=== PATIENT | female | born 1945 | race Caucasian/White ===

== ENCOUNTER 2017-03-31 14:28 | Emergency (ER) | payer MEDICARE, OTHER ==
[~2017-03-31] VITALS: Ht 162.6 cm; Wt 107.0 kg
[~2017-03-31 14:28] MED LIST: AMLODIPINE BESY10 MG PO; FUROSEMIDE40 MG PO; HUMALOG 75100 UNITS/ IV; HUMALOG100 UNIT/4 SQ; LANTUS100 UNIT/2 SQ; LANTUS100 UNITS/ SC; LISINOPRIL-HCT1 EAC4 PO; PLAVIX75 MG PO; Z.0.ANTIVERT25 MG PO; Z.0.GABAPENTIN100 MG PO; Z.0.GABAPENTIN600 MG PO; Z.0.LOPRESSOR25 MG PO; Z.0.PANTOPRAZOLE SO4 PO; Z.0.PRINIVIL20 MG PO; Z.0.SYNTHROID175 MCG PO; Z.0.SYNTHROID200 MCG PO; Z.0.ULTRAM50 MG PO; Z.0.ZOCOR20 MG PO; Z.0.ZOLOFT50 MG PO
--- NOTE | 2017-03-31 15:54 | Diagnostic Imaging Report ---
Pelvis 1 view HISTORY: Pain. COMPARISON: None available. FINDINGS: Bones: No acute displaced fracture. No expansile lytic or sclerotic lesion. Joints: The joint spaces are well-maintained. No dislocation. Degenerative changes of the bilateral hips and lumbar spine. Soft tissues: The soft tissues appear unremarkable. Phleboliths are present. IMPRESSION: No acute radiographic abnormality. Signed by: Dr. Robert Del Angel M.D. on 03/31/2017 3:47 PM
[2017-03-31] MEDS ORDERED: HYDROCODONE/APAP 5MG-325MG TAB PO ONE ×2 (16:00→21:30)
[2017-03-31] MEDS ORDERED: MORPHINE SULFATE 2 MG/ML SYR IV ONE ×2 (17:30→19:30)
[2017-03-31 17:46] LABS: BILIRUBIN,URINE NEGATIVE (NEGATIVE); COLOR,URINE YELLOW (YELLOW); KETONES,URINE NEGATIVE (NEGATIVE); LEUKOCYTE ESTERASE ,URINE NEGATIVE (NEGATIVE); NITRITE,URINE NEGATIVE (NEGATIVE); PROTEIN,URINE DIPSTICK NEGATIVE (NEGATIVE); URINE UROBILINOGEN 0.2 mg/dL (0.2 - 1)
[2017-03-31 17:48] LABS: CLARITY,URINE SL CLOUDY (CLEAR)
[2017-03-31 17:58] LABS: BASOPHILS # (AUTO) 0.1 (0.0-0.1); BASOPHILS % 0.7 % (0.0-1.0); EOSINOPHILS # (AUTO) 0.1 (0.0-0.4); EOSINOPHILS % 1.4 % (0.0-6.0); HEMATOCRIT 33.4 % (34.2-44.1); HEMOGLOBIN 10.9 g/dL (12.0-16.0); LYMPHOCYTES # (AUTO) 1.2 (1.0-3.2); LYMPHOCYTES % 13.8 % (18.0-39.1); MEAN CORPUSCULAR HEMOGLOBIN 30.1 pg (28-32); MEAN CORPUSCULAR HGB CONC 32.6 g/dL (31-35); MEAN CORPUSCULAR VOLUME 92.3 fL (81-99); MONOCYTES # (AUTO) 0.5 (0.2-0.8); MONOCYTES % 5.5 % (4.4-11.3); NEUTROPHILS # (AUTO) 6.8 (2.1-6.9); NEUTROPHILS % 78.1 % (38.7-80.0); PLATELET COUNT 203 x10e3/uL (140-360); RED BLOOD COUNT 3.62 x10e6/uL (3.6-5.1); RED CELL DISTRIBUTION WIDTH 12.9 % (11.7-14.4)
[2017-03-31 18:00] LABS: BACTERIA,URINE FEW /HPF; EPITHELIAL CELLS,URINE MODERATE /LPF
[2017-03-31 18:13] LABS: INR 1.04; PARTIAL THROMBOPLASTIN TIME 26.9 seconds (23.8-35.5); PROTHROMBIN TIME 12.8 seconds (11.9-14.5)
[2017-03-31 18:24] LABS: ANION GAP 14.2 mmol/L (8-16); BLOOD UREA NITROGEN 16 mg/dL (7-26); BUN/CREATININE RATIO 20 (6-25); CALCIUM 9.3 mg/dL (8.4-10.2); CARBON DIOXIDE 27 mmol/L (22-29); CHLORIDE 98 mmol/L (98-107); CREATININE, SERUM 0.82 mg/dL (0.57-1.11); EST GLOMERULAR FILTRATION RATE > 60 ML/MIN (60-); GLUCOSE 354 mg/dL (74-118); POTASSIUM 4.2 mmol/L (3.5-5.1); SODIUM 135 mmol/L (136-145)
[2017-03-31] MEDS ORDERED: AMITRIPTYLINE H25 MG PO (19:06)
[2017-03-31] MEDS ORDERED: MONTELUKAST SOD10 MG PO (19:07)
--- NOTE | 2017-03-31 20:41 | Diagnostic Imaging Report ---
MRI of the pelvis without contrast. MRI of the right hip without contrast. History: Hip pain. Back pain. Pelvic pain. Fall. Fracture. Technique: Multiplanar multisequence MRI of the pelvis without contrast. Multiplanar multisequence MRI of the right hip without contrast. Comparison: Radiographs 03/31/2017 Findings: Pelvis MRI: There is no acute fracture, subluxation or avascular necrosis about the pelvis. Scattered degenerative changes are seen about the pelvis and lower lumbar spine. The urinary bladder and remainder of the visualized pelvic structures are unremarkable. No free pelvic fluid or pelvic lymphadenopathy is seen. There is mild diffuse muscle atrophy. No ligamentous or tendon tear is seen. There is a small hemangioma in the L5 vertebral body. Hip mri: There is no acute fracture, subluxation or avascular necrosis about the hip. Scattered degenerative changes are seen about the hip with thinning of the articular cartilage at the superior lateral acetabulum and adjacent femoral head. There is no underlying bone marrow edema. There is degeneration and fraying of the labrum. There is a physiologic amount of fluid in hip joint. The remainder the visualized ligaments and tendons about the hip are intact. There is no evidence to suggest greater trochanteric bursitis. There is mild diffuse muscle atrophy. There is mild insertional hamstring tendinosis. The visualized neurovascular bundles are intact. Impression: No acute fracture, subluxation or avascular necrosis about the pelvis. No acute fracture, subluxation or avascular sclerosis about the right hip. Preliminary report provided by Dr. Cedeño at the time of the exam is listed below. EXAM: MRI HIP RIGHT WO \T\ MRI PELVIS WO INDICATION: Fracture status post fall, pain out of portion after negative x-rays COMPARISON: Pelvic x-ray and bilateral hips on 03/31/2017 and 12/30/2013 IMPRESSION: 1. No evidence of acute osseous abnormalities noted on MRI. 2. L5 vertebral body hemangioma. 3. Degenerative changes of the spine at L5-S1 level Signed by: Dr. Russell Sanchez M.D. on 04/01/2017 7:33 AM
[2017-03-31] MEDS ORDERED: TYLENOL WITH C1 EACH PO (21:28)
[2017-03-31 21:44] VITALS: BP 177/66
== END 2017-03-31 21:55 | disposition home or self-care (01) ==
LOC: ER 14:28
DX: S70.01XA Contusion of right hip, initial encounter (principal); W01.0XXA Fall on same level from slipping, tripping and stumbling without subsequent striking against object, initial encounter; Y92.008 Other place in unspecified non-institutional (private) residence as the place of occurrence of the external cause; I10 Essential (primary) hypertension; E11.9 Type 2 diabetes mellitus without complications; J44.9 Chronic obstructive pulmonary disease, unspecified; E07.9 Disorder of thyroid, unspecified
CPT/HCPCS: 36415; 72170; 72195; 73721; 80048; 81001; 85025; 85610; 85730; 87086; 99284; J2270

== ENCOUNTER 2018-01-09 17:39 | Inpatient (IN) | payer MEDICARE, OTHER ==
[~2018-01-09] VITALS: Ht 162.6 cm; Wt 103.0 kg
[~2018-01-09 17:39] MED LIST changes: +AMITRIPTYLINE H25 MG PO; +MONTELUKAST SOD10 MG PO; +TYLENOL WITH C1 EACH PO
--- OUTSIDE RECORDS SUMMARY | 2018-01-09 17:43 | XMS REPORT | CCD ---
Author Author Auto Generated Organization [facility] Address Unknown Phone Unavailable Care Team Providers Care Railcar Foreman Name Role Phone Nighat Jo V CP Allergies, Adverse Reactions, Alerts Substance Reaction Status codeine Active Results CHEMISTRY Most recent to oldest [Reference Range]: 1 Sodium Lvl [135-145 mEq/L] 139 mEq/L (03/25/2012 14:58:00) Potassium Lvl [3.5-5.1 mEq/L] 4.1 mEq/L (03/25/2012 14:58:00) Chloride Lvl [95-109 mEq/L] 101 mEq/L (03/25/2012 14:58:00) CO2 [24-32 mEq/L] 32 mEq/L (03/25/2012 14:58:00) AGAP [10.0-20.0 mEq/L] 10.1 mEq/L (03/25/2012 14:58:00) Creatinine Lvl [0.5-1.4 mg/dL] 0.9 mg/dL (03/25/2012 14:58:00) eGFR 66 mL/min/1.73m2 1 *NA* (03/25/2012 14:58:00) BUN [7-22 mg/dL] 20 mg/dL (03/25/2012 14:58:00) B/C Ratio [6-25] 22 (03/25/2012 14:58:00) Glucose Lvl [70-99 mg/dL] 108 mg/dL 2 *HI* (03/25/2012 14:58:00) Total Protein [6.4-8.4 g/dL] 8.4 g/dL (03/25/2012 14:58:00) Albumin Lvl [3.5-5.0 g/dL] 4.4 g/dL (03/25/2012 14:58:00) Globulin [2.0-4.0 g/dL] 4.0 g/dL (03/25/201258:) A/G Ratio [0.7-1.6] 1.1 (03/25/2012) Calcium Lvl [8.5-10.5 mg/dL] 8.6 mg/dL (03/25/201258:00) ALT [0-65 unit/L] 61 unit/L (03/25/2012) AST [0-37 unit/L] 53 unit/L *HI* (03/25/2012) Alk Phos [39-136 unit/L] 70 unit/L (03/25/2012) Bili Total [0.2-1.3 mg/dL] 0.4 mg/dL (03/25/2012) CHD Risk [3.90-5.80] 3.62 *LOW* (03/25/2012) Chol [120-200 mg/dL] 217 mg/dL *HI* (03/25/2012) Trig [0-200 mg/dL] 232 mg/dL *HI* (03/25/2012) HDL [>=35 mg/dL] 60 mg/dL (03/25/2012) LDL [0-129 mg/dL] 111 mg/dL (03/25/2012:) Hgb A1C 7.7 % 3 *NA* (03/25/2012) T4 [4.7-13.3 ug/dl] <0.5 ug/dl *LOW* (03/25/2012) T4 Free [0.76-1.46 ng/dL] 0.17 ng/dL *LOW* (03/25/2012) TSH [0.360-3.740 uIU/mL] 97.700 uIU/mL *HI* (03/25/2012) T3 Total [0.60-1.81 ng/mL] 0.18 ng/mL *LOW* (03/25/2012) T3 Free [2.18-3.98 pg/mL] 0.86 pg/mL *LOW* (03/25/2012 14:58:00) 1Result Comment: The eGFR is calculated using the CKD-EPI formula. In most young, healthy individuals the eGFR will be >90 mL/min/1.73m2. The eGFR declines with age. An eGFR of 60-89 may be normal in some populations, particularly the elderly, for whom the CKD-EPI formula has not been extensively validated. Use of the eGFR is not recommended in the following populations: Individuals with unstable creatinine concentrations, including patients and those with serious co-morbid conditions. Patients with extremes in muscle mass or diet. The data above are obtained from the National Kidney Disease Education Program ( NKDEP) which additionally recommends that when the eGFR is used in patients with extremes of body mass index for purposes of drug dosing, the eGFR should be mul tiplied by the estimated BMI. 2Interpretive Data: Adult reference range values reflect the clinical guidelines of the [place] [employer]. 3Interpretive Data: HbA1C% eAG(mg/dL) Interpretation 6.0 126 Very good control 6.5 140 Very good control 7.0 154 Good Control 7.5 169 Good Control 8.0 183 Marginal Control, take action to lower 8.5 197 Marginal Control, take action to lower 9.0 212 Poor Control, take action to lower 9.5 226 Poor Control, take action to lower 10.0 240 Poor Control, take action to lower HEMATOLOGY Most recent to oldest [Reference Range]: 1 WBC [3.7-10.4 K/CMM] 7.4 K/CMM (03/25/2012 14:58:00) RBC [4.20-5.40 M/CMM] 3.67 M/CMM *LOW* (03/25/2012 14:58:00) Hgb [12.0-16.0 g/dL] 11.5 g/dL *LOW* (03/25/2012:58:00) Hct [36.0-48.0 %] 35.5 % *LOW* (03/25/2012 14:58:00) MCV [81.0-99.0 fL] 96.8 fL (03/25/2012 14:58:00) MCH [27.0-31.0 pg] 31.4 pg *HI* (03/25/2012:58:00) MCHC [32.0-36.0 g/dL] 32.5 g/dL (03/25/2012:58:00) RDW [11.5-14.5 %] 15.9 % *HI* (03/25/2012:58:00) Platelet [133-450 K/CMM] 232 K/CMM (03/25/2012:58:00) MPV [7.4-10.4 fL] 7.1 fL *LOW* (03/25/2012:58:00) Segs [45.0-75.0 %] 63.1 % (03/25/2012:58:00) Lymphocytes [20.0-40.0 %] 28.4 % (03/25/2012:58:00) Monocytes [2.0-12.0 %] 4.6 % (03/25/2012:58:00) Eosinophils [0.0-4.0 %] 3.2 % (03/25/2012:58:00) Basophils [0.0-1.0 %] 0.7 % (03/25/2012:58:00) Segs-Bands # [1.5-8.1 K/CMM] 4.7 K/CMM (03/25/2012:58:00) Lymphocytes # [1.0-5.5 K/CMM] 2.1 K/CMM (03/25/2012:58:00) Monocytes # [0.0-0.8 K/CMM] 0.3 K/CMM (03/25/2012 14:58:00) Eosinophils # [0.0-0.5 K/CMM] 0.2 K/CMM (03/25/2012 14:58:00) Basophils # [0.0-0.2 K/CMM] 0.1 K/CMM (03/25/2012 14:58:00)
--- OUTSIDE RECORDS SUMMARY | 2018-01-09 17:43 | XMS REPORT | CCD ---
Author Author Auto Generated Organization [facility] Address Unknown Phone Unavailable Care Team Providers Care Behavioral Scientist Name Role Phone Nighat Jo V RP Allergies, Adverse Reactions, Alerts Substance Reaction Status codeine Active Vital Signs Most recent to oldest [Reference Range]: 1 Height 162.56 cm (08/11/2012 10:36:00) Weight 105.455 kg (08/11/2012 10:36:00)
--- OUTSIDE RECORDS SUMMARY | 2018-01-09 17:43 | XMS REPORT | Continuity of Care Document ---
Author Author [facility] Interface Address Unknown Phone Unavailable Problems Problem Status Onset Date Classification Date Reported Comments Source I25.710 Active 01/09/2016 [facility] UNK Active 01/09/2016 [facility] CHEST PAIN Active 10/15/2013 [facility] SHORTNESS OF BREATH Active 10/15/2013 [facility] STABLE ANGINA Active 08/11/2012 [facility] Thyroid Resolved Problem 03/04/2015 [facility] Cholesterol Resolved Problem 04/15/2016 [facility] [place] Diabetes Resolved Problem 04/15/2016 [facility] [place] HTN (<span [id number]">Confirmed</span>) Resolved Problem 04/15/2016 [facility] [place] Myasthenia gravis Resolved Problem 04/15/2016 [facility] [place] Pneumonia<sup>1</sup> Resolved Problem 04/15/2016 staph [facility] [place] 780.79 Active [facility] MALAISE AND FATIGUE NEC Active [facility] CRNRY ATHRSCL NATVE VSSL Active [facility] 786.50/ 780.79, 2724., 414.01 Active [facility] HYPERLIPIDEMIA NEC/NOS Active [facility] CHEST PAIN NOS Active [facility] COUGH Active [facility] COUGH Active [facility] ATHSCL AUTOLOGOUS VEIN CABG W UNSTABLE A Active [facility] Medications Medication Details Route Status Patient Instructions Ordering Provider Order Date Source Nitroglycerin 0.4 mg, 1 tab, Route: SL, Drug form: TAB, Q5Min, Dosing Weight 100.909, kg, PRN Chest Pain, Start date: 01/16/16 9:15:00 [employer], Duration: 3 doses or times, Stop date: Limited # of timesNotes: (Same as: Nitroquick, Nitrostat) "Do Not Crush" Sublingual tablet Inactive 01/16/2016 [facility] Sodium Chloride 0.154 MEQ/ML Injectable Solution 200 mL, Rate: 50 ml/hr, Infuse over: 4 hr, Route: IV, Dosing Weight 100.909 kg, Total Volume: 200, Start date: 01/16/16 9:15:00 [employer], Duration: 24 hr, Stop date: 01/17/16 9:14:00 [employer] Inactive 01/16/2016 [facility] metoprolol 50 mg oral tablet, extended release 50 mg=1 tab, PO, BID, # 60 tab, 0 Refill(s), other Active 01/16/2016 [facility] losartan 100 mg oral tablet 100 mg=1 tab, PO, Daily, # 30 tab, 0 Refill(s), other Active 01/16/2016 [facility] Novolin R See Instructions, 35 units SUB-Q QID-Before Meals, 0 Refill(s) Active 01/16/2016 [facility] multivitamin with iron 65 mg=, PO, Daily, 0 Refill(s) Active 01/16/2016 [facility] Vitamin B6 200 mg, 2 tab, Route: PO, Drug form: TAB, Daily, Dosing Weight 111.818, kg, Start date: 10/16/13 17:00:00, Duration: 30 day, Stop date: 11/14/13 17:00:00Notes: (Same as: Vitamin B6) Inactive 10/16/2013 [facility] Levaquin 500 mg, 100 mL, Route: IVPB, Drug form: INJ, [id number], Dosing Weight 111.818, kg, Start date: 10/16/13 14:00:00, Duration: 30 day, Stop date: 11/14/13 14:00:00Notes: (Same as:Levaquin) Inactive 10/16/2013 [facility] Sertraline 50 mg, 1 tab, Route: PO, Drug form: TAB, Daily, Dosing Weight 111.818, kg, Start date: 10/16/13 9:00:00, Duration: 30 day, Stop date: 11/14/13 9:00:00Notes: (Same as: Zoloft) Inactive 10/16/2013 [facility] metoprolol extended release 25 mg, 1 tab, Route: PO, Drug form: ERTAB, Daily, Dosing Weight 111.818, kg, Start date: 10/16/13 9:00:00, Duration: 30 day, Stop date: 11/14/13 9:00:00Notes: (Same as: Toprol XL) Do Not Crush Inactive 10/16/2013 [facility] Furosemide 40 mg, 1 tab, Route: PO, Drug form: TAB, Daily, Dosing Weight 111.818, kg, Start date: 10/16/13 9:00:00, Duration: 30 day, Stop date: 11/14/13 9:00:00Notes: (Same as: Lasix) May cause GI upset. Give with food or milk. Inactive 10/16/2013 [facility] clopidogrel 75 mg, 1 tab, Route: PO, Drug form: TAB, Daily, Dosing Weight 111.818, kg, Start date: 10/16/13 9:00:00, Duration: 30 day, Stop date: 11/14/13 9:00:00Notes: (Same As: Plavix) Inactive 10/16/2013 [facility] Aspirin / Calcium Carbonate 81 mg, 1 tab, Route: PO, Drug form: CHEWTAB, Daily, Dosing Weight 111.818, kg, Start date: 10/16/13 9:00:00, Duration: 30 day, Stop date: 11/14/13 9:00:00Notes: Take with food. Inactive 10/16/2013 [facility] NovoLOG FlexPen 10 unit, 0.1 mL, Route: SUB-Q, Drug form: SOLN, TID-Before Meals, Start date: 10/16/13 7:50:00, Duration: 30 day, Stop date: 11/14/13 16:50:00Notes: Roll in palms of hands gently; Do not shake vigor ously. (Same as: NovoLOG) "single patient use only" Stable for 28 days at room temperature. Expires in days from Date Inactive 10/16/2013 [facility] Humalog 10 unit, Route: SUB-Q, Drug form: NEEDLE, TID-Before Meals, Dosing Weight 111.818, kg, Start date: 10/16/13 7:30:00, Duration: 30 day, Stop date: 11/14/13 16:30:00 No Longer Active 10/16/2013 [facility] Thyroxine 100 microgram, 1 tab, Route: PO, Drug form: TAB, Q6AM, Dosing Weight 111.818, kg, Start date: 10/16/13 6:00:00, Duration: 30 day, Stop date: 11/14/13 6:00:00Notes: Take 1 hour before or 2 hours after meal; Enteral feeds may interefere with the absorption of this medication. (Same as:Levothroid, Synthroid) Inactive 10/16/2013 [facility] gabapentin 600 mg, 2 cap, Route: PO, Drug form: CAP, Q8H, Dosing Weight 111.818, kg, Start date: 10/16/13 0:00:00, Duration: 30 day, Stop date: 11/14/13 16:00:00Notes: (Same as: Neurontin) Inactive 10/16/2013 [facility] Saline Flush 0.9% 5 ml, Route: IVP, Drug Form: INJ, Dosing Weight 111.818, kg, Q12H, Start date: 10/15/13 21:00:00, Duration: 30 day, Stop date: 11/14/13 9:00:00Notes: (Same as: BD Posiflush) No Longer Active 10/16/2013 [facility] Levemir FlexPen 50 unit, 0.5 mL, Route: SUB-Q, Drug form: INJ, Bedtime, Start date: 10/15/13 21:00:00, Duration: 30 day, Stop date: 11/13/13 21:00:00Notes: Same as Levemir "single patient use only" No Longer Active 10/16/2013 [facility] Lantus 50 unit, Route: SUB-Q, Drug form: NEEDLE, Bedtime, Dosing Weight 111.818, kg, Start date: 10/15/13 21:00:00, Duration: 30 day, Stop date: 11/13/13 21:00:00 Inactive 10/16/2013 [facility] atorvastatin 10 mg, 1 tab, Route: PO, Drug form: TAB, Bedtime, Dosing Weight 111.818, kg, Start date: 10/15/13 21:00:00, Duration: 30 day, Stop date: 11/13/13 21:00:00Notes: (Same As: Lipitor) No Longer Active 10/16/2013 [facility] Restoril 7.5 mg, 1 cap, Route: PO, Drug form: CAP, Bedtime, PRN Sleep, Start date: 10/15/13 18:05:00, Duration: 30 day, Stop date: 11/14/13 18:04:00Notes: (Same As: Restoril) No Longer Active 10/15/2013 [facility] Nitroglycerin 0.02 MG/MG Topical Ointment 0.5 inch, Route: TOP, Drug Form: OINT, Dosing Weight 111.818, kg, TID, Start date: 10/15/13 18:00:00, Duration: 30 day, Stop date: 11/14/13 12:00:00Notes: 1 gram is approximately 1 inch of nitroglycerin ointment (20 mg NTG per gram) (Same as:Nitro-Bid) No Longer Active 10/15/2013 [facility] Enoxaparin 40 mg, 0.4 mL, Route: SUB-Q, Drug form: INJ, [id number], Dosing Weight 111.818, kg, Start date: 10/15/13 18:00:00, Duration: 30 day, Stop date: 11/13/13 18:00:00Notes: (Same as: Lovenox) No Longer Active 10/15/2013 [facility] Tylenol 650 mg, 2 tab, Route: PO, Drug form: TAB, Q4H, Dosing Weight 111.818, kg, PRN Pain, Start date: 10/15/13 17:57:00, Duration: 30 day, Stop date: 11/14/13 17:56:00Notes: Do not exceed 4 gm/day. (Same as: Tylenol) No Longer Active 10/15/2013 [facility] Ambien 5 mg, Route: PO, Bedtime, Dosing Weight 111.818, kg, PRN Insomnia, Start date: 10/15/13 17:57:00, Duration: 30 day, Stop date: 11/14/13 17:56:00 Inactive 10/15/2013 [facility] Aspirin / Calcium Carbonate 81 mg, PO, Daily, 0 Refill(s) Active 10/15/2013 [facility] metoprolol tartrate 25 mg, PO, Daily, 0 Refill(s) Active 10/15/2013 [facility] Thyroxine 100 microgram, PO, Daily, 0 Refill(s) Active 10/15/2013 [facility] Vitamin B6 200 mg, PO, Daily, 0 Refill(s) Active 10/15/2013 [facility] Sertraline 50 mg, PO, Daily, 0 Refill(s) Active 10/15/2013 [facility] atorvastatin 10 mg, PO, Bedtime, 0 Refill(s) Active 10/15/2013 [facility] clopidogrel 75 mg, PO, Daily, 0 Refill(s) Active 10/15/2013 [facility] Lantus 50 unit, SUB-Q, Bedtime, 0 Refill(s) Active 10/15/2013 [facility] Humalog 10 unit, SUB-Q, TID-Before Meals, 0 Refill(s) Active 10/15/2013 [facility] gabapentin 600 mg, PO, TID, 0 Refill(s) Active 10/15/2013 [facility] Furosemide 40 mg, PO, Daily, 0 Refill(s) Active 10/15/2013 [facility] nitroglycerin 0.4 mg sublingual tablet 0.4 mg, 1 tab, Route: SL, Drug form: TAB, Q5Min, PRN Chest Pain, Start date: 10/15/13 12:46:00, Duration: 30 day, Stop date: 11/14/13 12:45:00Notes: (Same as:Nitroquick, Nitrostat) "Do Not Crush" Sublingual tablet No Longer Active 10/15/2013 [facility] atropine 0.5 mg, 5 mL, Route: IVP, Drug form: INJ, PRN, PRN Bradycardia, Start date: 10/15/13 12:46:00, Duration: 30 day, Stop date: 11/14/13 12:45:00 No Longer Active 10/15/2013 [facility] Saline Flush 0.9% 5 ml, Route: IVP, Drug Form: INJ, Dosing Weight 111.818, kg, PRN, PRN Line Flush, Start date: 10/15/13 12:41:00, Duration: 30 day, Stop date: 11/14/13 12:40:00Notes: (Same as: BD Posiflush) No Longer Active 10/15/2013 [facility] Nitroglycerin 0.4 mg, Route: SL, Drug form: TAB, Q5Min, Dosing Weight 111.818, kg, PRN Chest Pain, Start date: 10/15/13 12:41:00, Duration: 3 doses or times, Stop date: Limited # of times Inactive 10/15/2013 [facility] aspirin 325 mg tablet 325 mg, 1 tab, Route: PO, Drug form: TAB, ONCE, Dosing Weight 111.818, kg, Start date: 10/15/13 12:41:00, Stop date: 10/15/13 12:41:00Notes: Take with food. Inactive 10/15/2013 [facility] Dextrose 50% Syringe 25 gm, 50 mL, Route: IVP, Drug Form: INJ, Dosing Weight 111.818, kg, PRN, PRN Blood Glucose Results, Start date: 10/15/13 12:41:00, Duration: 30 day, Stop date: 11/14/13 12:40:00 No Longer Active 10/15/2013 [facility] Glucagon 1 mg, Route: IM, Drug form: PDR/INJ, PRN, Dosing Weight 111.818, kg, PRN Blood Glucose Results, Start date: 10/15/13 12:41:00, Duration: 30 day, Stop date: 11/14/13 12:40:00 No Longer Active 10/15/2013 [facility] Insulin, Aspart, Human 5 unit, 0.05 mL, Route: SUB-Q, Drug form: SOLN, TID-Before Meals, Dosing Weight 111.818, kg, PRN Blood Glucose Results, Start date: 10/15/13 12:41:00, Duration: 30 day, Stop date: 11/14/13 12:40:00Notes: Roll in palms of hands gently; Do not shake vigorously. (Same as: NovoLOG) "single patient use only" Stable for 28 days at room temperature. Expires in days from Date No Longer Active 10/15/2013 [facility] Metoprolol 5 mg, 5 mL, Route: IVP, Drug form: INJ, ONCE, Dosing Weight 111.818, kg, Priority: STAT, Start date: 10/15/13 9:00:00, Stop date: 10/15/13 9:00:00Notes: (Same as: Lopressor) Push over 2 minutes Inactive 10/15/2013 [facility] Furosemide 20 mg, 2 mL, Route: IVP, Drug form: INJ, ONCE, Dosing Weight 111.818, kg, Priority: STAT, Start date: 10/15/13 8:58:00, Stop date: 10/15/13 8:58:00Notes: (Same as: Lasix) Inactive 10/15/2013 [facility] Nitroglycerin 0.02 MG/MG Topical Ointment 1 inch, Route: TOP, Drug Form: OINT, Dosing Weight 111.818, kg, ONCE, STAT, Start date: 10/15/13 8:58:00, Stop date: 10/15/13 8:58:00Notes: 1 gram is approximately 1 inch of nitroglycerin ointment (20 mg NTG per gram) (Same as:Nitro-Bid) Inactive 10/15/2013 [facility] Aspirin / Calcium Carbonate 324 mg, 4 tab, Route: PO, Drug form: CHEWTAB, ONCE, Dosing Weight 111.818, kg, Priority: STAT, Start date: 10/15/13 8:58:00, Stop date: 10/15/13 8:58:00Notes: Take with food. Inactive 10/15/2013 [facility] Saline Flush 0.9% 10 mL, Route: IVP, Drug Form: INJ, Dosing Weight 111.818, kg, PRN, PRN Line Flush, Start date: 10/15/13 8:58:00, Duration: 30 day, Stop date: 11/14/13 8:57:00Notes: Same as: BD Posiflush Sterile Inactive 10/15/2013 [facility] Allergies, Adverse Reactions, Alerts Substance Category Reaction Severity Reaction type Status Date Reported Comments Source codeine Assertion Drug allergy Active [facility] Immunizations Immunization Date Given Site Status Last Updated Comments Source Results Order Name Results Value Reference Range Date Interpretation Comments Source Chest 2 views DX Chest 2 views DX EXAM: Chest 2 views DX HISTORY: cough r05 COMPARISON: 03/01/2015 Cardiomegaly with median sternotomy and coronary artery bypass graft changes are again noted. The lungs are clear. There is no effusion or pneumothorax. Mild discogenic degenerative changes are noted. IMPRESSION: No acute abnormality. 04/12/2016 - - Read by: Klaudia Agarwal MD Dictated Date/time: 04/12/16 12:46 Electronically Signed by: Klaudia Agarwal MD 04/12/16 12:47 FINAL REPORT AUSTEN [facility] Sinus paranasal series DX Sinus paranasal series DX EXAM: Sinus paranasal series DX HISTORY: J31.0 Chronic rhinitis COMPARISON: None IMPRESSION: No air-fluid level or radiographically evident significant mucosal thickening of the paranasal sinuses is seen. The nasal septum is mildly deviated toward the right. 04/12/2016 - - Read by: Klaudia Agarwal MD Dictated Date/time: 04/12/16 12:46 Electronically Signed by: Klaudia Agarwal MD 04/12/16 12:46 FINAL REPORT CARA [facility] Chest 2 views DX Chest 2 views DX PA and lateral: Median sternotomy wires are noted. The aorta is tortuous. The cardiomediastinal silhouette, pulmonary vasculature and mary are otherwise within normal limits. The lungs and pleural spaces are clear. There are no significant osseous abnormalities. There is no significant change compared to 10/15/2013. IMPRESSION: No acute radiographic abnormality in the chest. SL:13 03/01/2015 - - Read by: Donavan Brandon MD Dictated Date/time: 03/01/15 10:59 Electronically Signed by: Donavan Brandon MD 03/01/15 11:00 FINAL REPORT [facility] CARDIAC ENZYMES Troponin-I null 0.00 - 0.40 10/16/2013 [facility] Cardiac SPECT multi studies IA Cardiac SPECT multi studies IA Test Location is [facility] [place] The patient underwent Lexiscan Cardiolite stress testing according to the rest/stress protocol. The patient was then injected with 33 mCi of Cardiolite at stress and 11 mCi of Cardiolite at rest. Transverse, coronal, and sagittal images were obtained. Review of stress and rest images revealed normal myocardial perfusion. Ejection fraction by SPECT analysis was 70%. The baseline ECG showed NSR. No significant ECG or hemodynamic changes were observed. In summary, this represents a normal myocardial perfusion study with normal LV function. 10/16/2013 - - Read by: Axel Gilbert MD Dictated Date/time: 10/16/13 17:10 Electronically Signed by: Axel Gilbert MD 10/16/13 17:10 FINAL REPORT [facility] CARDIAC ENZYMES BNP 103 pg/mL <=100 pg/mL 10/16/2013 5Interpretive Data: Elevated results are in line with increasing severity of congestive heart failure. Minor elevations between 100 and 300 may be seen with Myocardial Ischemia, Sodium retaining drugs, and compensated/treated heart failure. [facility] CARDIAC ENZYMES Troponin-I null 0.00 - 0.40 10/16/2013 [facility] CARDIAC ENZYMES Total CK 42 unit/L 12 - 191 10/16/2013 [facility] CHEM PANEL eGFR 75 mL/min/1.73m2 10/16/2013 1Result Comment: The eGFR is calculated using [...] from the National Kidney Disease Education Program (NKDEP) which additionally recommends that when the eGFR is used in patients with extremes of body mass index for purposes of drug dosing, the eGFR should be multiplied by the estimated BMI. [facility] CHEM PANEL CO2 37 meq/L 24 - 32 10/16/2013 [facility] CHEM PANEL Chloride Lvl 98 meq/L 95 - 109 10/16/2013 [facility] CHEM PANEL Glucose Lvl 202 mg/dL 70 - 99 10/16/2013 3Interpretive Data: Adult reference range values reflect the clinical guidelines of the [place] [employer]. [facility] CHEM PANEL BUN 17 mg/dL 7 - 22 10/16/2013 [facility] CHEM PANEL Calcium Lvl 8.8 mg/dL 8.5 - 10.5 10/16/2013 [facility] CHEM PANEL Creatinine Lvl 0.8 mg/dL 0.5 - 1.4 10/16/2013 [facility] CHEM PANEL Sodium Lvl 139 meq/L 135 - 145 10/16/2013 [facility] CHEM PANEL Potassium Lvl 4.1 meq/L 3.5 - 5.1 10/16/2013 [facility] CHEM PANEL AGAP 8.1 meq/L 10.0 - 20.0 10/16/2013 [facility] HEMATOLOGY Basophils # 0.1 K/CMM 0.0 - 0.2 10/16/2013 [facility] HEMATOLOGY Segs 72.9 % 45.0 - 75.0 10/16/2013 [facility] HEMATOLOGY Lymphocytes 17.9 % 20.0 - 40.0 10/16/2013 [facility] HEMATOLOGY Monocytes 6.5 % 2.0 - 12.0 10/16/2013 [facility] HEMATOLOGY Eosinophils 1.9 % 0.0 - 4.0 10/16/2013 [facility] HEMATOLOGY Basophils 0.8 % 0.0 - 1.0 10/16/2013 [facility] HEMATOLOGY Segs-Bands # 6.0 K/CMM 1.5 - 8.1 10/16/2013 [facility] HEMATOLOGY Lymphocytes # 1.5 K/CMM 1.0 - 5.5 10/16/2013 [facility] HEMATOLOGY Monocytes # 0.5 K/CMM 0.0 - 0.8 10/16/2013 [facility] HEMATOLOGY Eosinophils # 0.2 K/CMM 0.0 - 0.5 10/16/2013 [facility] HEMATOLOGY MCHC 33.5 g/dL 32.0 - 36.0 10/16/2013 [facility] RDW 15.0 % 11.5 - 14.5 10/16/2013 [facility] HEMATOLOGY Platelet 179 K/CMM 133 - 450 10/16/2013 [facility] HEMATOLOGY MPV 7.2 fL 7.4 - 10.4 10/16/2013 [facility] HEMATOLOGY Hgb 10.0 g/dL 12.0 - 16.0 10/16/2013 [facility] HEMATOLOGY Hct 30.0 % 36.0 - 48.0 10/16/2013 [facility] HEMATOLOGY MCV 94.0 fL 80.0 - 98.0 10/16/2013 [facility] MCH 31.5 pg 27.0 - 31.0 10/16/2013 [facility] HEMATOLOGY RBC 3.19 M/CMM 4.20 - 5.40 10/16/2013 [facility] HEMATOLOGY WBC 8.2 K/CMM 3.7 - 10.4 10/16/2013 [facility] LIPIDS VLDL 23 10/16/2013 [facility] LIPIDS LDL (Calculated) 77 mg/dL <=99 mg/dL 10/16/2013 [facility] LIPIDS HDL 40 mg/dL >=61 mg/dL 10/16/2013 [facility] LIPIDS Chol 140 mg/dL <=199 mg/dL 10/16/2013 [facility] LIPIDS Trig 113 mg/dL <=149 mg/dL 10/16/2013 [facility] LIPIDS CHD Risk 3.50 3.90 - 5.80 10/16/2013 [facility] Ext Lower Venous Doppler Unilat US Ext Lower Venous Doppler Unilat US EXAM: Left lower extremity venous Doppler ultrasound and SPECTRAL analysis. CLINICAL INFORMATION: Pain. Leg pain. TECHNIQUE: Duplex and color Doppler evaluation of the deep venous system of left leg. FINDINGS: The left common femoral, femoral, popliteal and tibial veins demonstrate normal color-flow, compressibility and augmentation. The left greater saphenous vein is also patent. IMPRESSION: No sonographic evidence of deep venous thrombosis in the left leg. SL: 10/16/2013 - - Read by: Danilo Smith MD Dictated Date/time: 10/16/13 08:46 Electronically Signed by: Danilo Smith MD 10/16/13 08:46 FINAL REPORT [facility] CARDIAC ENZYMES Total CK 47 unit/L 12 - 191 10/15/2013 [facility] CARDIAC ENZYMES Troponin-I 0.02 ng/mL 0.00 - 0.40 10/15/2013 [facility] HEMATOLOGY PTT 30.9 s 22.9 - 35.8 10/15/2013 7Interpretive Data: Heparin Therapeutic Range: 57 - 92 Seconds [facility] CARDIAC ENZYMES CK MB Index 2.5 0.0 - 2.5 10/15/2013 [facility] CARDIAC ENZYMES BNP 170 pg/mL <=100 pg/mL 10/15/2013 6Interpretive Data: Elevated results are in line with increasing severity of congestive heart failure. Minor elevations between 100 and 300 may be seen with Myocardial Ischemia, Sodium retaining drugs, and compensated/treated heart failure. [facility] CARDIAC ENZYMES CK MB 1.5 ng/mL 0.5 - 3.6 10/15/2013 [facility] CARDIAC ENZYMES Total CK 59 unit/L 12 - 191 10/15/2013 [facility] CHEM PANEL eGFR 88 mL/min/1.73m2 10/15/2013 2Result Comment: The eGFR is calculated using the [...] from the National Kidney Disease Education Program (NKDEP) which additionally recommends that when the eGFR is used in patients with extremes of body mass index for purposes of drug dosing, the eGFR should be multiplied by the estimated BMI. [facility] CHEM PANEL B/C Ratio 16 6 - 25 10/15/2013 [facility] CHEM PANEL AGAP 9.0 meq/L 10.0 - 20.0 10/15/2013 [facility] CHEM PANEL Globulin 3.7 g/dL 2.0 - 4.0 10/15/2013 [facility] CHEM PANEL A/G Ratio 1.1 0.7 - 1.6 10/15/2013 [facility] CHEM PANEL AST 21 unit/L 0 - 37 10/15/2013 [facility] CHEM PANEL Bili Total 0.7 mg/dL 0.2 - 1.3 10/15/2013 [facility] CHEM PANEL Alk Phos 100 unit/L 39 - 136 10/15/2013 [facility] CHEM PANEL Sodium Lvl 134 meq/L 135 - 145 10/15/2013 [facility] CHEM PANEL Total Protein 7.6 g/dL 6.4 - 8.4 10/15/2013 [facility] CHEM PANEL Calcium Lvl 9.0 mg/dL 8.5 - 10.5 10/15/2013 [facility] CHEM PANEL CO2 31 meq/L 24 - 32 10/15/2013 [facility] CHEM PANEL Albumin Lvl 3.9 g/dL 3.5 - 5.0 10/15/2013 [facility] CHEM PANEL ALT 24 unit/L 0 - 65 10/15/2013 [facility] CHEM PANEL Chloride Lvl 98 meq/L 95 - 109 10/15/2013 [facility] CHEM PANEL BUN 11 mg/dL 7 - 22 10/15/2013 [facility] CHEM PANEL Creatinine Lvl 0.7 mg/dL 0.5 - 1.4 10/15/2013 [facility] CHEM PANEL Potassium Lvl 4.0 meq/L 3.5 - 5.1 10/15/2013 [facility] CHEM PANEL Glucose Lvl 195 mg/dL 70 - 99 10/15/2013 4Interpretive Data: Adult reference range values reflect the clinical guidelines of the [place] [employer]. [facility] HEMATOLOGY Monocytes # 0.6 K/CMM 0.0 - 0.8 10/15/2013 [facility] HEMATOLOGY Eosinophils # 0.1 K/CMM 0.0 - 0.5 10/15/2013 [facility] HEMATOLOGY Basophils # 0.1 K/CMM 0.0 - 0.2 10/15/2013 [facility] Lymphocytes # 1.2 K/CMM 1.0 - 5.5 10/15/2013 [facility] Eosinophils 1.1 % 0.0 - 4.0 10/15/2013 [facility] Basophils 1.2 % 0.0 - 1.0 10/15/2013 [facility] Segs-Bands # 8.9 K/CMM 1.5 - 8.1 10/15/2013 [facility] Monocytes 5.3 % 2.0 - 12.0 10/15/2013 [facility] Segs 81.4 % 45.0 - 75.0 10/15/2013 [facility] Lymphocytes 11.0 % 20.0 - 40.0 10/15/2013 [facility] WBC 10.9 K/CMM 3.7 - 10.4 10/15/2013 [facility] RBC 3.32 M/CMM 4.20 - 5.40 10/15/2013 [facility] Hct 31.4 % 36.0 - 48.0 10/15/2013 [facility] Hgb 10.8 g/dL 12.0 - 16.0 10/15/2013 [facility] MPV 7.1 fL 7.4 - 10.4 10/15/2013 [facility] MCV 94.5 fL 80.0 - 98.0 10/15/2013 [facility] MCH 32.6 pg 27.0 - 31.0 10/15/2013 [facility] MCHC 34.5 g/dL 32.0 - 36.0 10/15/2013 [facility] RDW 14.8 % 11.5 - 14.5 10/15/2013 [facility] Platelet 197 K/CMM 133 - 450 10/15/2013 [facility] Chest 1view Chest 1view EXAM: CHEST 1 VIEW DATE: Oct 15, 2013 09:10:13 AM INDICATION: Chest pain COMPARISON: Chest X ray 04/24/13 TECHNIQUE: AP chest radiograph. FINDINGS: Lungs are clear bilaterally without effusion. The cardiomediastinal contours are unchanged. Midline sternotomy wires are present. CABG ovidio are identified. IMPRESSION: No acute intrathoracic abnormality SL: 13 10/15/2013 - - Read by: Ilya Messina MD Dictated Date/time: 10/15/13 09:11 Electronically Signed by: Ilya Messina MD 10/15/13 09:20 FINAL REPORT [facility] CARDIAC ENZYMES Total CK 42 unit/L 12 - 191 04/24/2013 [facility] CHEM PANEL A/G Ratio 1.1 0.7 - 1.6 04/24/2013 [facility] CHEM PANEL B/C Ratio 20 6 - 25 04/24/2013 [facility] CHEM PANEL Globulin 3.8 g/dL 2.0 - 4.0 04/24/2013 [facility] CHEM PANEL AGAP 7.9 meq/L 10.0 - 20.0 04/24/2013 [facility] CHEM PANEL eGFR 89 mL/min/1.73m2 04/24/2013 1Result Comment: The eGFR is calculated using [...] from the National Kidney Disease Education Program (NKDEP) which additionally recommends that when the eGFR is used in patients with extremes of body mass index for purposes of drug dosing, the eGFR should be multiplied by the estimated BMI. [facility] CHEM PANEL Bili Total 0.7 mg/dL 0.2 - 1.3 04/24/2013 [facility] CHEM PANEL ASPARTATE TRANSAMINASE 13 unit/L 0 - 37 04/24/2013 [facility] CHEM PANEL ALANINE AMINOTRANSFERASE 15 unit/L 0 - 65 04/24/2013 [facility] CHEM PANEL Alk Phos 133 unit/L 39 - 136 04/24/2013 [facility] CHEM PANEL Total Protein 7.8 g/dL 6.4 - 8.4 04/24/2013 [facility] CHEM PANEL Albumin Lvl 4.0 g/dL 3.5 - 5.0 04/24/2013 [facility] CHEM PANEL Creatinine Lvl 0.7 mg/dL 0.5 - 1.4 04/24/2013 [facility] CHEM PANEL Glucose Lvl 145 mg/dL 70 - 99 04/24/2013 2Interpretive Data: Adult reference range values reflect the clinical guidelines of the [place] [employer]. [facility] CHEM PANEL Chloride Lvl 101 meq/L 95 - 109 04/24/2013 [facility] CHEM PANEL BUN 14 mg/dL 7 - 22 04/24/2013 [facility] CHEM PANEL CO2 35 meq/L 24 - 32 04/24/2013 [facility] CHEM PANEL Calcium Lvl 9.1 mg/dL 8.5 - 10.5 04/24/2013 [facility] CHEM PANEL Sodium Lvl 140 meq/L 135 - 145 04/24/2013 [facility] CHEM PANEL Potassium Lvl 3.9 meq/L 3.5 - 5.1 04/24/2013 [facility] HEMATOLOGY RDW 14.5 % 11.5 - 14.5 04/24/2013 [facility] MCHC 33.4 g/dL 32.0 - 36.0 04/24/2013 [facility] Platelet 253 K/CMM 133 - 450 04/24/2013 [facility] MPV 7.3 fL 7.4 - 10.4 04/24/2013 [facility] Hgb 11.0 g/dL 12.0 - 16.0 04/24/2013 [facility] RBC X 10x6 3.58 M/CMM 4.20 - 5.40 04/24/2013 [facility] WBC X 10x3 10.0 K/CMM 3.7 - 10.4 04/24/2013 [facility] MCV 91.9 fL 81.0 - 99.0 04/24/2013 [facility] Hct 32.9 % 36.0 - 48.0 04/24/2013 [facility] MCH 30.7 pg 27.0 - 31.0 04/24/2013 [facility] Lymphocytes 23.4 % 20.0 - 40.0 04/24/2013 [facility] Segs 70.0 % 45.0 - 75.0 04/24/2013 [facility] HEMATOLOGY Eosinophils # 0.2 K/CMM 0.0 - 0.5 04/24/2013 [facility] HEMATOLOGY Basophils # 0.0 K/CMM 0.0 - 0.2 04/24/2013 [facility] HEMATOLOGY Monocytes # 0.4 K/CMM 0.0 - 0.8 04/24/2013 [facility] Lymphocytes # 2.3 K/CMM 1.0 - 5.5 04/24/2013 [facility] Eosinophils 2.0 % 0.0 - 4.0 04/24/2013 [facility] Segs-Bands # 7.0 K/CMM 1.5 - 8.1 04/24/2013 [facility] HEMATOLOGY Basophils 0.5 % 0.0 - 1.0 04/24/2013 [facility] HEMATOLOGY Monocytes 4.1 % 2.0 - 12.0 04/24/2013 [facility] LIPIDS CHD Risk 3.20 3.90 - 5.80 04/24/2013 [facility] LIPIDS VLDL 24 04/24/2013 [facility] LIPIDS LDL (Calculated) 73 mg/dL <=99 mg/dL 04/24/2013 [facility] LIPIDS HDL 44 mg/dL >=61 mg/dL 04/24/2013 [facility] LIPIDS Chol 141 mg/dL <=199 mg/dL 04/24/2013 [facility] LIPIDS Trig 121 mg/dL <=149 mg/dL 04/24/2013 [facility] Ribs bilateral Ribs bilateral PROCEDURE: Ribs bilateral 4 views REASON FOR EXAM: See Clinic Indication CLINICAL INDICATION: 786.50 chest pain COMPARISON: None. FINDINGS: No definite acute displaced rib fracture or rib lesion. No definite destructive bony process is present. Postoperative median sternotomy. Mild cardiomegaly. Tortuous atherosclerotic thoracic aorta. Postoperative cholecystectomy. SL: 04/24/2013 - - Read by: Danilo Smith Dictated Date/time: 04/24/13 15:48 Electronically Signed by: Danilo Smith MD 04/24/13 15:49 FINAL REPORT [facility] Chest 2 views Chest 2 views PROCEDURE: Chest 2 views REASON FOR EXAM: See Clinic Indication CLINICAL INDICATION: 786.50 chest pain COMPARISON: 03/25/2012. FINDINGS: Stable moderate cardiomegaly. No definite failure. Postoperative median sternotomy. Atherosclerotic thoracic aorta. No focal consolidation, pleural effusion, pneumothorax. Atherosclerotic thoracic aorta. DJD of the spine. Postoperative cholecystectomy. SL: 04/24/2013 - - Read by: Danilo Simth Dictated Date/time: 04/24/13 15:43 Electronically Signed by: Danilo Smith MD 04/24/13 15:44 FINAL REPORT [facility] CHEMISTRY T4 Free 0.17 ng/dL 0.76 - 1.46 03/25/2012 LOW [facility] CHEMISTRY T4 null 4.7 - 13.3 03/25/2012 LOW [facility] CHEMISTRY LDL 111 mg/dL 0 - 129 03/25/2012 Normal [facility] CHEMISTRY Trig 232 mg/dL 0 - 200 03/25/2012 [facility] CHEMISTRY Chol 217 mg/dL 120 - 200 03/25/2012 [facility] CHEMISTRY HDL 60 mg/dL >=35 03/25/2012 Normal [facility] CHEMISTRY CHD Risk 3.62 3.90 - 5.80 03/25/2012 LOW [facility] CHEMISTRY T3 Free 0.86 pg/mL 2.18 - 3.98 03/25/2012 LOW [facility] CHEMISTRY T3 Total 0.18 ng/mL 0.60 - 1.81 03/25/2012 LOW [facility] CHEMISTRY Hgb A1C 7.7 % 03/25/2012 NA 3Interpretive Data: HbA1C% eAG(mg/dL) Interpretation 6.0 126 Very good control 6.5 140 Very good control 7.0 154 Good Control 7.5 169 Good Control 8.0 183 Marginal Control, take action to lower 8.5 197 Marginal Control, take action to lower 9.0 212 Poor Control, take action to lower 9.5 226 Poor Control, take action to lower 10.0 240 Poor Control, take action to lower [facility] CHEMISTRY Globulin 4.0 g/dL 2.0 - 4.0 03/25/2012 Normal [facility] CHEMISTRY A/G Ratio 1.1 0.7 - 1.6 03/25/2012 Normal [facility] CHEMISTRY AGAP 10.1 meq/L 10.0 - 20.0 03/25/2012 Normal [facility] CHEMISTRY B/C Ratio 22 6 - 25 03/25/2012 Normal [facility] CHEMISTRY AST 53 unit/L 0 - 37 03/25/2012 [facility] CHEMISTRY Bili Total 0.4 mg/dL 0.2 - 1.3 03/25/2012 Normal [facility] CHEMISTRY Alk Phos 70 unit/L 39 - 136 03/25/2012 Normal [facility] CHEMISTRY ALT 61 unit/L 0 - 65 03/25/2012 Normal [facility] CHEMISTRY Total Protein 8.4 g/dL 6.4 - 8.4 03/25/2012 Normal [facility] CHEMISTRY eGFR 66 mL/min/1.73m2 03/25/2012 NA 1Result Comment: The eGFR is calculated using [...] from the National Kidney Disease Education Program (NKDEP) which additionally recommends that when the eGFR is used in patients with extremes of body mass index for purposes of drug dosing, the eGFR should be multiplied by the estimated BMI. [facility] CHEMISTRY Albumin Lvl 4.4 g/dL 3.5 - 5.0 03/25/2012 Normal [facility] CHEMISTRY CO2 32 meq/L 24 - 32 03/25/2012 Normal [facility] CHEMISTRY Calcium Lvl 8.6 mg/dL 8.5 - 10.5 03/25/2012 Normal [facility] CHEMISTRY Chloride Lvl 101 meq/L 95 - 109 03/25/2012 Normal [facility] CHEMISTRY Potassium Lvl 4.1 meq/L 3.5 - 5.1 03/25/2012 Normal [facility] CHEMISTRY Creatinine Lvl 0.9 mg/dL 0.5 - 1.4 03/25/2012 Normal [facility] CHEMISTRY BUN 20 mg/dL 7 - 22 03/25/2012 Normal [facility] CHEMISTRY Sodium Lvl 139 meq/L 135 - 145 03/25/2012 Normal [facility] CHEMISTRY Glucose Lvl 108 mg/dL 70 - 99 03/25/2012 [place] 2Interpretive Data: Adult reference range values reflect the clinical guidelines of the [place] [employer]. [facility] CHEMISTRY TSH 97.700 uIU/mL 0.360 - 3.740 03/25/2012 HI [facility] HEMATOLOGY Segs-Bands # 4.7 K/CMM 1.5 - 8.1 03/25/2012 Normal [facility] HEMATOLOGY Monocytes 4.6 % 2.0 - 12.0 03/25/2012 Normal [facility] HEMATOLOGY Eosinophils 3.2 % 0.0 - 4.0 03/25/2012 Normal [facility] HEMATOLOGY Basophils 0.7 % 0.0 - 1.0 03/25/2012 Normal [facility] HEMATOLOGY Lymphocytes # 2.1 K/CMM 1.0 - 5.5 03/25/2012 Normal [facility] HEMATOLOGY Monocytes # 0.3 K/CMM 0.0 - 0.8 03/25/2012 Normal [facility] HEMATOLOGY Eosinophils # 0.2 K/CMM 0.0 - 0.5 03/25/2012 Normal [facility] HEMATOLOGY Basophils # 0.1 K/CMM 0.0 - 0.2 03/25/2012 Normal [facility] HEMATOLOGY Lymphocytes 28.4 % 20.0 - 40.0 03/25/2012 Normal [facility] HEMATOLOGY Segs 63.1 % 45.0 - 75.0 03/25/2012 Normal [facility] HEMATOLOGY WBC 7.4 K/CMM 3.7 - 10.4 03/25/2012 Normal [facility] HEMATOLOGY MPV 7.1 fL 7.4 - 10.4 03/25/2012 LOW [facility] HEMATOLOGY MCH 31.4 pg 27.0 - 31.0 03/25/2012 HI [facility] HEMATOLOGY Platelet 232 K/CMM 133 - 450 03/25/2012 Normal [facility] HEMATOLOGY MCV 96.8 fL 81.0 - 99.0 03/25/2012 Normal [facility] HEMATOLOGY RDW 15.9 % 11.5 - 14.5 03/25/2012 [facility] HEMATOLOGY MCHC 32.5 g/dL 32.0 - 36.0 03/25/2012 Normal [facility] HEMATOLOGY Hct 35.5 % 36.0 - 48.0 03/25/2012 LOW [facility] HEMATOLOGY Hgb 11.5 g/dL 12.0 - 16.0 03/25/2012 LOW [facility] HEMATOLOGY RBC 3.67 M/CMM 4.20 - 5.40 03/25/2012 LOW [facility] Vital Signs Vital Sign Value Date Comments Source Systolic (mm Hg) 182 01/16/2016 [facility] Diastolic (mm Hg) 97 01/16/2016 [facility] Height 162.56 cm 01/16/2016 [facility] BMI Calculated 38.19 01/16/2016 [facility] Weight 100.909 01/16/2016 [facility] Diastolic (mm Hg) 82 10/16/2013 [facility] Systolic (mm Hg) 159 10/16/2013 [facility] Heart Rate 72 10/16/2013 [facility] Respitory Rate 17 10/16/2013 [facility] Temperature Oral (F) 98.5 F 10/16/2013 [facility] Systolic (mm Hg) 161 10/16/2013 [facility] Diastolic (mm Hg) 74 10/16/2013 [facility] Respitory Rate 17 10/16/2013 [facility] Temperature Oral (F) 98.6 F 10/16/2013 [facility] Heart Rate 73 10/16/2013 [facility] Diastolic (mm Hg) 77 10/16/2013 [facility] Systolic (mm Hg) 149 10/16/2013 [facility] Respitory Rate 17 10/16/2013 [facility] Heart Rate 77 10/16/2013 [facility] Temperature Oral (F) 98.8 F 10/16/2013 [facility] BMI Calculated 42.31 10/15/2013 [facility] Weight 111.818 10/15/2013 [facility] Height 162.56 cm 10/15/2013 [facility] Height 162.56 cm 10/15/2013 [facility] Weight 111.818 10/15/2013 [facility] BMI Calculated 42.31 10/15/2013 [facility] Weight 95.455 09/22/2012 [facility] Height 170.18 cm 09/22/2012 [facility] Height 162.56 cm 08/11/2012 [facility] Weight 105.455 08/11/2012 [facility] Weight 120 07/08/2012 [facility] Height 162.56 cm 07/08/2012 [facility] Encounters Location Location Details Encounter Type Encounter Number Reason For Visit Attending Provider ADM Date DC Date Status Source [facility] Outpatient [id number] 780.79 PALUR DEYSI 03/25/2012 Active [facility] [place] [id number] STABLE ANGINA PALUR DEYSI 07/08/2012 Active [facility] [place] [id number] STABLE ANGINA PALUR DEYSI 08/11/2012 09/09/2012 Active [facility] [place] [id number] STABLE ANGINA PALUR DEYSI 09/24/2012 Active [facility] Outpatient [id number] _[id number] Palur Deysi 04/24/2013 04/25/2013 [facility] OBS Observation Patient [id number] Axel Gilbert 10/15/2013 10/17/2013 [facility] Outpatient [id number] Devendra Hagen 03/01/2015 03/02/2015 [facility] Bedded Outpatient [id number] Antonia Hauser 01/16/2016 01/16/2016 [facility] [place] [facility] [id number] Devendra Hagen 04/12/2016 04/13/2016 [facility] [place] Procedures Procedure Code Date Perfomer Comments Source Aspiration of knee joint<sup>1</sup> 196080246 on levaquin done at [facility] Atypical pneumonia screening test<sup>2</sup> [id number] [facility] Bunionectomy [id number] [facility] CABG x 2 - Coronary artery bypass grafts x 2<sup>3</sup> [id number] 2 yrs ago . 1 yr ago stent placed. [facility] Cataract extraction [id number] [facility] Cholecystectomy [id number] [facility] Stent placement [id number] [facility] Tubal ligation [id number] [facility] Aspiration of knee joint<sup>1</sup> [id number] on levaquin done at [facility] . [facility] [place] Atypical pneumonia [facility]<sup>[facility]</sup[facility] [place] Bunion[facility] [id number] [facility] [place] CABG x 2 - Coronary artery bypass grafts x 2<sup>3</sup> [id number] 2 yrs ago . 1 yr ago stent placed. [facility] [place] Cataract extraction [id number] [facility] [place] Cholecystectomy [id number] [facility] [place] Stent placement [id number] [facility] [place] Tubal ligation [id number] [facility] [place]
--- OUTSIDE RECORDS SUMMARY | 2018-01-09 17:43 | XMS REPORT | CCD ---
Author Author Auto Generated Organization [facility] Address Unknown Phone Unavailable Care Team Providers Care Central Office Mechanic Name Role Phone Deysi Dustinesteban Nuno RP Allergies, Adverse Reactions, Alerts Substance Reaction Status codeine Active Vital Signs Most recent to oldest [Reference Range]: 1 Height 170.18 cm (09/22/2012 17:55:00) Weight 95.455 kg (09/22/2012 17:55:00)
--- OUTSIDE RECORDS SUMMARY | 2018-01-09 17:43 | XMS REPORT | Summary of Care ---
Author Organization Unknown Address Unknown Phone Unavailable Encounter Dates Location Diagnoses [facility]charge [facility]iders [facility] [id number] Priti [address] , [facility] Reason for Visit 786.50/ 780.79, 2724., 414.01 Problem List No data available for this section Allergies, Adverse Reactions, Alerts Status Substance Reaction Severity Active codeine Medications No data available for this section Results ELECTROLYTES Most recent to 1 oldest [Reference Range]: Sodium Lvl [135-145 140 mEq/L mEq/L] (04/24/2013 14:54:00 [facility] Potassium Lvl 3.9 mEq/L [3.5-5.1 mEq/L] (04/24/2013 14:54:00 [facility] Chloride Lvl [95-109 101 mEq/L mEq/L] (04/24/2013 14:54:00 [facility] CO2 [24-32 mEq/L] 35 mEq/L *HI* [facility] AGAP [10.0-20.0 7.9 mEq/L mEq/L] *LOW* (04/24/2013 14:54:00 [facility] CHEM PANEL Most recent to 1 oldest [Reference Range]: Creatinine Lvl 0.7 mg/dL [0.5-1.4 mg/dL] (04/24/2013 14:54:00 [facility] eGFR 89 mL/min/1.73m2 1 *NA* (04/24/2013 14:54:00 [facility] BUN [7-22 mg/dL] 14 mg/dL (04[facility]24[facility] B/C Ratio [6-25] 20 (04/24/2013 14:54:00 [facility] Glucose Lvl [70-99 145 mg/dL 2 mg/dL] *HI* (04/24/2013 14:54:00 [facility] Total Protein 7.8 g/dL [6.4-8.4 g/dL] (04/24/2013 [facility] Albumin Lvl [3.5-5.0 4.0 g/dL g/dL] (04/24/2013 14:54:00 [facility]) Globulin [2.0-4.0 3.8 g/dL g/dL] (04/24/2013 [facility] A/G Ratio [0.7-1.6] 1.1 (04/24/2013 14:54:00 [facility]) Calcium Lvl 9.1 mg/dL [8.5-10.5 mg/dL] (04/24/2013 14:54:00 [facility]) ALT [0-65 unit/L] 15 unit/L (04/24/2013 14:54:00 [facility]) AST [0-37 unit/L] 13 unit/L (04/24/2013 14:54:00 [facility]) Alk Phos [39-136 133 unit/L unit/L] (04/24/2013 14:54:00 [facility] Bili Total [0.2-1.3 0.7 mg/dL mg/dL] (04/24/2013 14:54:00 [facility]) 1Result Comment: The eGFR is calculated using [...] values reflect the clinical guidelines of the [place] [employer]. CARDIAC ENZYMES Most recent to 1 oldest [Reference Range]: Total CK [12-191 42 unit/L unit/L] (04/24/2013 14:54:00 [facility]) LIPIDS Most recent to 1 oldest [Reference Range]: CHD Risk [3.90-5.80] 3.20 *LOW* (04/24/2013 14:54:00 [facility]) Chol [<=199 mg/dL] 141 mg/dL (04/24/2013 14:54:00 [facility]) Trig [<=149 mg/dL] 121 mg/dL (04/24/2013 14:54:00 [facility]) HDL [>=61 mg/dL] 44 mg/dL *LOW* (04/24/2013 14:54:00 [facility]) LDL (Calculated) 73 mg/dL [<=99 mg/dL] (04/24/2013 14:54:00 [facility]) VLDL 24 *NA* (04/24/2013 14:54:00 [facility]) HEMATOLOGY Most recent to 1 oldest [Reference Range]: WBC [3.7-10.4 K/CMM] 10.0 K/CMM (04/24/2013 14:54:00 [facility]) RBC [4.20-5.40 3.58 M/CMM M/CMM] *LOW* (04/24/2013 14:54:00 [facility]) Hgb [12.0-16.0 g/dL] 11.0 g/dL *LOW* (04/24/2013 14:54:00 [facility]) Hct [36.0-48.0 %] 32.9 % *LOW* (04/24/2013 14:54:00 [facility]) MCV [81.0-99.0 fL] 91.9 fL (04/24/2013 14:54:00 [facility]) MCH [27.0-31.0 pg] 30.7 pg (04/24/2013 14:54:00 [facility]) MCHC [32.0-36.0 33.4 g/dL g/dL] (04/24/2013 14:54:00 [facility]) RDW [11.5-14.5 %] 14.5 % (04/24/2013 14:54:00 [facility] Platelet [133-450 253 K/CMM K/CMM] (04/24/2013 14:54:00 [facility] MPV [7.4-10.4 fL] 7.3 fL *LOW* (04/24/2013 14:54:00 [facility] Segs [45.0-75.0 %] 70.0 % (04/24/2013 14:54:00 [facility] Lymphocytes 23.4 % [20.0-40.0 %] (04/24/2013 14:54:00 [facility] Monocytes [2.0-12.0 4.1 % %] (04/24/2013 14:54:00 [facility] Eosinophils [0.0-4.0 2.0 % %] (04/24/2013 14:54:00 [facility] Basophils [0.0-1.0 0.5 % %] (04/24/2013 14:54:00 [facility] Segs-Bands # 7.0 K/CMM [1.5-8.1 K/CMM] (04/24/2013 14:54:00 [facility] Lymphocytes # 2.3 K/CMM [1.0-5.5 K/CMM] (04/24/2013 14:54:00 [facility] Monocytes # [0.0-0.8 0.4 K/CMM K/CMM] (04/24/2013 14:54:00 [facility] Eosinophils # 0.2 K/CMM [0.0-0.5 K/CMM] (04/24/2013 14:54:00 [facility] Basophils # [0.0-0.2 0.0 K/CMM K/CMM] (04/24/2013 14:54:00 [facility] Medications Administered During Your Visit No data available for this section Immunizations No data available for this section Social History Social History Type Response
--- OUTSIDE RECORDS SUMMARY | 2018-01-09 17:44 | XMS REPORT ---
Author Author [facility] Address Unknown Phone Unavailable Care Team Providers Care Production Planner Scheduler Name Role Phone PRISCILLA Violetta DEREK Unavailable Unavailable Problems This patient has no known problems. Allergies, Adverse Reactions, Alerts This patient has no known allergies or adverse reactions. Medications This patient has no known medications. Results Test Description Test Time Test Comments Text Results Atomic Results Result Comments MRI PELVIS WO [place] [address] Patient Name: STEPHEN ORTIZ MR #: [id number] : 1945 Age/Sex: 71/F Req #: [id number] Adm Physician: Ordered by: NINO HOLLY ASSISTANT PROFESSOR OF BUSINESS Report #: [id number] Location: ER Room/Bed: Procedure: [id number] MRI/MRI PELVIS WO Exam Date: Exam Time: REPORT STATUS: Signed MRI of the pelvis without contrast. MRI of the right hip without contrast. History: Hip pain. Back pain. Pelvic pain. Fall. Fracture. Technique: Multiplanar multisequence MRI of the pelvis without contrast. Multiplanar multisequence MRI of the right hip without contrast. Comparison: Radiographs 03/31/2017 Findings: Pelvis MRI: There is no acute fracture, subluxation or avascular necrosis about the pelvis. Scattered degenerative changes are seen about the pelvis and lower lumbar spine. The urinary bladder and remainder of the visualized pelvic structures are unremarkable. No free pelvic fluid or pelvic lymphadenopathy is seen. There is mild diffuse muscle atrophy. No ligamentous or tendon tear is seen. There is a small hemangioma in the L5 vertebral body. Hip mri: There is no acute fracture, subluxation or avascular necrosis about the hip. Scattered degenerative changes are seen about the hip with thinning of the articular cartilage at the superior lateral acetabulum and adjacent femoral head. There is no underlying bone marrow edema. There is degeneration and fraying of the labrum. There is a physiologic amount of fluid in hip joint. The remainder the visualized ligaments and tendons about the hip are intact. There is no evidence to suggest greater trochanteric bursitis. There is mild diffuse muscle atrophy. There is mild insertional hamstring tendinosis. The visualized neurovascular bundles are intact. Impression: No acute fracture, subluxation or avascular necrosis about the pelvis. No acute fracture, subluxation or avascular sclerosis about the right hip. Preliminary report provided by Dr. Cedeño at the time of the exam is listed below. EXAM: MRI HIP RIGHT WO T MRI PELVIS WO INDICATION: Fracture status post fall, pain out of portion after negative x-rays COMPARISON: Pelvic x-ray and bilateral hips on 03/31/2017 and 12/30/2013 IMPRESSION: 1. No evidence of acute osseous abnormalities noted on MRI. 2. L5 vertebral body hemangioma. 3. Degenerative changes of the spine at L5-S1 level Signed by: Dr. Russell Sanchez M.D. on 04/01/2017 7:33 AM Dictated By: RUSSELL SANCHEZ MD, MD 2 Transcribed By: CHARLOTTE on 04/01/17732 COPY TO: NINO HOLLY NP MRI HIP RIGHT WO [place] [address] Patient Name: STEPHEN ORTIZ MR #: [id number] : 1945 Age/Sex: 71/F Req #: [id number] Adm Physician: Ordered by: NINO HOLLY NP Report #: [id number] Location: ER Room/Bed: Procedure: [id number] MRI/MRI HIP RIGHT WO Exam Date: Exam Time: REPORT STATUS: Signed MRI of the pelvis without contrast. MRI of the right hip without contrast. History: Hip pain. Back pain. Pelvic pain. Fall. Fracture. Technique: Multiplanar multisequence MRI of the pelvis without contrast. Multiplanar multisequence MRI of the right hip without contrast. Comparison: Radiographs 03/31/2017 Findings: Pelvis MRI: There is no acute fracture, subluxation or avascular necrosis about the pelvis. Scattered degenerative changes are seen about the pelvis and lower lumbar spine. The urinary bladder and remainder of the visualized pelvic structures are unremarkable. No free pelvic fluid or pelvic lymphadenopathy is seen. There is mild diffuse muscle atrophy. No ligamentous or tendon tear is seen. There is a small hemangioma in the L5 vertebral body. Hip mri: There is no acute fracture, subluxation or avascular necrosis about the hip. Scattered degenerative changes are seen about the hip with thinning of the articular cartilage at the superior lateral acetabulum and adjacent femoral head. There is no underlying bone marrow edema. There is degeneration and fraying of the labrum. There is a physiologic amount of fluid in hip joint. The remainder the visualized ligaments and tendons about the hip are intact. There is no evidence to suggest greater trochanteric bursitis. There is mild diffuse muscle atrophy. There is mild insertional hamstring tendinosis. The visualized neurovascular bundles are intact. Impression: No acute fracture, subluxation or avascular necrosis about the pelvis. No acute fracture, subluxation or avascular sclerosis about the right hip. Preliminary report provided by Dr. Cedeño at the time of the exam is listed below. EXAM: MRI HIP RIGHT WO T MRI PELVIS WO INDICATION: Fracture status post fall, pain out of portion after negative x-rays COMPARISON: Pelvic x-ray and bilateral hips on 03/31/2017 and 12/30/2013 IMPRESSION: 1. No evidence of acute osseous abnormalities noted on MRI. 2. L5 vertebral body hemangioma. 3. Degenerative changes of the spine at L5-S1 level Signed by: Dr. Russell Sanchez M.D. on 04/01/2017 7:33 AM Dictated By: RUSSELL SANCHEZ MD, MD 2 Transcribed By: CHARLOTTE on 04/01/17732 COPY TO: NINO HOLLY NP PELVIS AP 1-2 VIEWS [place] [address] Patient Name: STEPHEN ORTIZ MR #: [id number] : 1945 Age/Sex: 71/F Req #: [id number] Adm Physician: Ordered by: NINO HOLLY NP Report #: [id number] Location: ER Room/Bed: Procedure: [id number] DX/PELVIS AP 1-2 VIEWS Exam Date: 03/31/17 Exam Time: 1513 REPORT STATUS: Signed Pelvis 1 view HISTORY: Pain. COMPARISON: None available. FINDINGS: Bones: No acute displaced fracture. No expansile lytic or sclerotic lesion. Joints: The joint spaces are well-maintained. No dislocation. Degenerative changes of the bilateral hips and lumbar spine. Soft tissues: The soft tissues appear unremarkable. Phleboliths are present. IMPRESSION: No acute radiographic abnormality. Signed by: Dr. Antonina Donahue M.D. on 03/31/2017 3:47 PM Dictated By: ANTONINA DONAHUE MD [id number] Transcribed By: CHARLOTTE on 03/31/17 154 COPY TO: NINO HOLLY NP
--- OUTSIDE RECORDS SUMMARY | 2018-01-09 17:44 | XMS REPORT | Summary of Care ---
Author Author [facility] [place] Organization [facility] [place] Address Unknown Phone Unavailable Encounter HQ Stephen_doug(FIN) [id number] Date(s): 04/12/16 - 04/12/16 [facility] [place] [address] [place] [phone] Discharge Disposition: Home or Self Care Attending Physician: Devendra Hagen MD Vital Signs No data available for this section Problem List Condition Effective Dates Status Health Status Informant Cholesterol(Confirme Resolved d) Diabetes(Confirmed) Resolved HTN Resolved (hypertension)(Confi rmed) Myasthenia Resolved gravis(Confirmed) Pneumonia(Confirmed) Resolved 1 1staph Allergies, Adverse Reactions, Alerts Substance Reaction Severity Status NKDA Active Medications No data available for this section Results No data available for this section Immunizations No data available for this section Procedures Procedure Date Related Diagnosis Body Site Aspiration of knee joint1 Atypical pneumonia screening test2 Bunionectomy CABG x 2 - Coronary artery bypass grafts x 23 Cataract extraction Cholecystectomy Stent placement Tubal ligation 1on levaquin done at [facility] . 2staph 32 yrs ago . 1 yr ago stent placed. Social History Social History Type Response Smoking Status Former smoker; Exposure to Tobacco Smoke None; Cigarette Smoking Last 365 Days No; Reg Smoking Cessation Counseling Yes Assessment and Plan No data available for this section
--- OUTSIDE RECORDS SUMMARY | 2018-01-09 17:44 | XMS REPORT | Summary of Care ---
Author Organization Unknown Address Unknown Phone Unavailable Encounter HQ Ewelina(EDWINA) [id number] Date(s): 10/15/13 - 10/16/13 [facility] [address] Priti Rivera [address] Discharge Disposition: Home Physician Attending: Axel Gilbert MD Physician Admitting: Axel Gilbert MD Reason for Visit CHEST PAIN Vital Signs 1 2 3 Most recent to oldest [Reference Range]: 162.56 cm (10/15/13 12:46 PM) 162.56 cm (10/15/13 8:36 AM) Height 98.5 DegF (10/16/13 4:00 PM) 98.6 DegF (10/16/13 12:00 PM) 98.8 DegF (10/16/13 8:00 AM) Temperature Oral [96.4-99.1 DegF] 159 mmHg *HI* (10/16/13 4:00 PM) 161 mmHg *HI* (10/16/13 12:00 PM) 149 mmHg *HI* (10/16/13 8:00 AM) Systolic Blood Pressure [90-140 mmHg] 82 mmHg (10/16/13 4:00 PM) 74 mmHg (10/16/13 12:00 PM) 77 mmHg (10/16/13 8:00 AM) Diastolic Blood Pressure [60-90 mmHg] 17 BRMIN (10/16/13 4:00 PM) 17 BRMIN (10/16/13 12:00 PM) 17 BRMIN (10/16/13 8:00 AM) Respiratory Rate [14-20 BRMIN] 72 bpm (10/16/13 4:00 PM) 73 bpm (10/16/13 12:00 PM) 77 bpm (10/16/13 8:00 AM) Peripheral Pulse Rate [60-100 bpm] 111.818 kg (10/15/13 12:46 PM) 111.818 kg (10/15/13 8:36 AM) Weight 42.31 m2 (10/15/13 12:46 PM) 42.31 m2 (10/15/13 8:36 AM) Body Mass Index Problem List Condition Effective Dates Status Health Status Informant Cholesterol(Confirme Resolved d) Diabetes(Confirmed) Resolved HTN Resolved (hypertension)(Confi rmed) Myasthenia Resolved gravis(Confirmed) Pneumonia(Confirmed) Resolved 1 Thyroid(Confirmed) Resolved 1staph Allergies, Adverse Reactions, Alerts Substance Reaction Severity Status codeine Active Medications Ambien 5 mg, Route: PO, Bedtime, Dosing Weight 111.818, kg, PRN Insomnia, Start date: 0 10/15/13 17:57:00, Duration: 30 day, Stop date: 11/14/13 17:56:00 Start Date: 10/15/13 Stop Date: 10/15/13 Status: Deleted aspirin 81 mg, PO, Daily, 0 Refill(s) Start Date: 10/15/13 Status: Ordered aspirin 81 mg, 1 tab, Route: PO, Drug form: CHEWTAB, Daily, Dosing Weight 111.818, kg, S tart date: 10/16/13 9:00:00, Duration: 30 day, Stop date: 11/14/13 9:00:00 Notes: Take with food. Start Date: 10/16/13 Stop Date: 10/16/13 Status: Discontinued aspirin 324 mg, 4 tab, Route: PO, Drug form: CHEWTAB, ONCE, Dosing Weight 111.818, kg, P riority: STAT, Start date: 10/15/13 8:58:00, Stop date: 10/15/13 8:58:00 Notes: Take with food. Start Date: 10/15/13 Stop Date: 10/15/13 Status: Completed aspirin 325 mg tablet 325 mg, 1 tab, Route: PO, Drug form: TAB, ONCE, Dosing Weight 111.818, kg, Start date: 10/15/13 12:41:00, Stop date: 10/15/13 12:41:00 Notes: Take with food. Start Date: 10/15/13 Stop Date: 10/15/13 Status: Completed atorvastatin 10 mg, PO, Bedtime, 0 Refill(s) Start Date: 10/15/13 Status: Ordered atorvastatin 10 mg, 1 tab, Route: PO, Drug form: TAB, Bedtime, Dosing Weight 111.818, kg, Sta rt date: 10/15/13 21:00:00, Duration: 30 day, Stop date: 11/13/13 21:00:00 Notes: (Same As: Lipitor) Start Date: 10/15/13 Stop Date: 10/16/13 Status: Discontinued atropine 0.5 mg, 5 mL, Route: IVP, Drug form: INJ, PRN, PRN Bradycardia, Start date: 09/19 10/01 12:46:00, Duration: 30 day, Stop date: 11/14/13 12:45:00 Start Date: 10/15/13 Stop Date: 10/16/13 Status: Discontinued clopidogrel 75 mg, PO, Daily, 0 Refill(s) Start Date: 10/15/13 Status: Ordered clopidogrel 75 mg, 1 tab, Route: PO, Drug form: TAB, Daily, Dosing Weight 111.818, kg, Start date: 10/16/13 9:00:00, Duration: 30 day, Stop date: 11/14/13 9:00:00 Notes: (Same As: Plavix) Start Date: 10/16/13 Stop Date: 10/16/13 Status: Discontinued Dextrose 50% Syringe 25 gm, 50 mL, Route: IVP, Drug Form: INJ, Dosing Weight 111.818, kg, PRN, PRN Bl ood Glucose Results, Start date: 10/15/13 12:41:00, Duration: 30 day, Stop date: 11/14/13 12:40:00 Start Date: 10/15/13 Stop Date: 10/16/13 Status: Discontinued Dextrose 50% Syringe 12.5 gm, 25 mL, Route: IVP, Drug Form: INJ, Dosing Weight 111.818, kg, PRN, PRN Blood Glucose Results, Start date: 10/15/13 12:41:00, Duration: 30 day, Stop jorge e: 11/14/13 12:40:00 Start Date: 10/15/13 Stop Date: 10/16/13 Status: Discontinued enoxaparin 40 mg, 0.4 mL, Route: SUB-Q, Drug form: INJ, [id number], Dosing Weight 111.818, kg , Start date: 10/15/13 18:00:00, Duration: 30 day, Stop date: 11/13/13 18:00:00 Notes: (Same as: Lovenox) Start Date: 10/15/13 Stop Date: 10/16/13 Status: Discontinued furosemide 40 mg, 1 tab, Route: PO, Drug form: TAB, Daily, Dosing Weight 111.818, kg, Start date: 10/16/13 9:00:00, Duration: 30 day, Stop date: 11/14/13 9:00:00 Notes: (Same as: Lasix) May cause GI upset. Give with food or milk. Start Date: 10/16/13 Stop Date: 10/16/13 Status: Discontinued furosemide 20 mg, 2 mL, Route: IVP, Drug form: INJ, ONCE, Dosing Weight 111.818, kg, Priori ty: STAT, Start date: 10/15/13 8:58:00, Stop date: 10/15/13 8:58:00 Notes: (Same as: Lasix) Start Date: 10/15/13 Stop Date: 10/15/13 Status: Completed furosemide 40 mg, PO, Daily, 0 Refill(s) Start Date: 10/15/13 Status: Ordered gabapentin 600 mg, 2 cap, Route: PO, Drug form: CAP, Q8H, Dosing Weight 111.818, kg, Start date: 10/16/13 0:00:00, Duration: 30 day, Stop date: 11/14/13 16:00:00 Notes: (Same as: Neurontin) Start Date: 10/16/13 Stop Date: 10/16/13 Status: Discontinued gabapentin 600 mg, PO, TID, 0 Refill(s) Start Date: 10/15/13 Status: Ordered glucagon 1 mg, Route: IM, Drug form: PDR/INJ, PRN, Dosing Weight 111.818, kg, PRN Blood G lucose Results, Start date: 10/15/13 12:41:00, Duration: 30 day, Stop date: 10/20 08/31 12:40:00 Start Date: 10/15/13 Stop Date: 10/16/13 Status: Discontinued Humalog 10 unit, SUB-Q, TID-Before Meals, 0 Refill(s) Start Date: 10/15/13 Status: Ordered Humalog 10 unit, Route: SUB-Q, Drug form: NEEDLE, TID-Before Meals, Dosing Weight 111.81 8, kg, Start date: 10/16/13 7:30:00, Duration: 30 day, Stop date: 11/14/13 16:30 :00 Start Date: 10/16/13 Stop Date: 10/15/13 Status: Deleted insulin aspart 5 unit, 0.05 mL, Route: SUB-Q, Drug form: SOLN, TID-Before Meals, Dosing Weight 111.818, kg, PRN Blood Glucose Results, Start date: 10/15/13 12:41:00, Duration: 30 day, Stop date: 11/14/13 12:40:00 Notes: Roll in palms of hands gently; Do not shake vigorously. (Same as: NovoLISA G)"single patient use only" Stable for 28 days at room temperature.Expires in _ ____ days from Date Start Date: 10/15/13 Stop Date: 10/16/13 Status: Discontinued insulin aspart 4 unit, 0.04 mL, Route: SUB-Q, Drug form: SOLN, TID-Before Meals, Dosing Weight 111.818, kg, PRN Blood Glucose Results, Start date: 10/15/13 12:41:00, Duration: 30 day, Stop date: 11/14/13 12:40:00 Notes: Roll in palms of hands gently; Do not shake vigorously. (Same as: NovoLO G)"single patient use only" Stable for 28 days at room temperature.Expires in _ ____ days from Date Start Date: 10/15/13 Stop Date: 10/16/13 Status: Discontinued insulin aspart 2 unit, 0.02 mL, Route: SUB-Q, Drug form: SOLN, TID-Before Meals, Dosing Weight 111.818, kg, PRN Blood Glucose Results, Start date: 10/15/13 12:41:00, Duration: 30 day, Stop date: 11/14/13 12:40:00 Notes: Roll in palms of hands gently; Do not shake vigorously. (Same as: NovoLO G)"single patient use only" Stable for 28 days at room temperature.Expires in _ ____ days from Date Start Date: 10/15/13 Stop Date: 10/16/13 Status: Discontinued insulin aspart 3 unit, 0.03 mL, Route: SUB-Q, Drug form: SOLN, TID-Before Meals, Dosing Weight 111.818, kg, PRN Blood Glucose Results, Start date: 10/15/13 12:41:00, Duration: 30 day, Stop date: 11/14/13 12:40:00 Notes: Roll in palms of hands gently; Do not shake vigorously. (Same as: NovoLO G)"single patient use only" Stable for 28 days at room temperature.Expires in _ ____ days from Date Start Date: 10/15/13 Stop Date: 10/16/13 Status: Discontinued insulin aspart 1 unit, 0.01 mL, Route: SUB-Q, Drug form: SOLN, TID-Before Meals, Dosing Weight 111.818, kg, PRN Blood Glucose Results, Start date: 10/15/13 12:41:00, Duration: 30 day, Stop date: 11/14/13 12:40:00 Notes: Roll in palms of hands gently; Do not shake vigorously. (Same as: NovoLO G)"single patient use only" Stable for 28 days at room temperature.Expires in _ ____ days from Date Start Date: 10/15/13 Stop Date: 10/16/13 Status: Discontinued Lantus 50 unit, SUB-Q, Bedtime, 0 Refill(s) Start Date: 10/15/13 Status: Ordered Lantus 50 unit, Route: SUB-Q, Drug form: NEEDLE, Bedtime, Dosing Weight 111.818, kg, St art date: 10/15/13 21:00:00, Duration: 30 day, Stop date: 11/13/13 21:00:00 Start Date: 10/15/13 Stop Date: 10/15/13 Status: Deleted Levaquin 500 mg, 100 mL, Route: IVPB, Drug form: INJ, [id number], Dosing Weight 111.818, kg, Start date: 10/16/13 14:00:00, Duration: 30 day, Stop date: 11/14/13 14:00:00 Notes: (Same as:Levaquin) Start Date: 10/16/13 Stop Date: 10/16/13 Status: Discontinued Levemir FlexPen 50 unit, 0.5 mL, Route: SUB-Q, Drug form: INJ, Bedtime, Start date: 10/15/13 21: 00:00, Duration: 30 day, Stop date: 11/13/13 21:00:00 Notes: Same as Levemir "single patient use only" Start Date: 10/15/13 Stop Date: 10/16/13 Status: Discontinued levothyroxine 100 microgram, PO, Daily, 0 Refill(s) Start Date: 10/15/13 Status: Ordered levothyroxine 100 microgram, 1 tab, Route: PO, Drug form: TAB, Q6AM, Dosing Weight 111.818, kg , Start date: 10/16/13 6:00:00, Duration: 30 day, Stop date: 11/14/13 6:00:00 Notes: Take 1 hour before or 2 hours after meal; Enteral feeds may interefere wi th the absorption of this medication. (Same as:Levothroid, Synthroid) Start Date: 10/16/13 Stop Date: 10/16/13 Status: Discontinued metoprolol 5 mg/5 ml INJ 5 mg, 5 mL, Route: IVP, Drug form: INJ, ONCE, Dosing Weight 111.818, kg, Priorit y: STAT, Start date: 10/15/13 9:00:00, Stop date: 10/15/13 9:00:00 Notes: (Same as: Lopressor)Push over 2 minutes Start Date: 10/15/13 Stop Date: 10/15/13 Status: Completed metoprolol extended release 25 mg, 1 tab, Route: PO, Drug form: ERTAB, Daily, Dosing Weight 111.818, kg, Sta rt date: 10/16/13 9:00:00, Duration: 30 day, Stop date: 11/14/13 9:00:00 Notes: (Same as: Toprol XL) Do Not Crush Start Date: 10/16/13 Stop Date: 10/16/13 Status: Discontinued metoprolol tartrate 25 mg, PO, Daily, 0 Refill(s) Start Date: 10/15/13 Status: Ordered nitroglycerin 0.4 mg sublingual tablet 0.4 mg, 1 tab, Route: SL, Drug form: TAB, Q5Min, PRN Chest Pain, Start date: 12:46:00, Duration: 30 day, Stop date: 11/14/13 12:45:00 Notes: (Same as:Nitroquick, Nitrostat)"Do Not Crush" Sublingual tablet Start Date: 10/15/13 Stop Date: 10/16/13 Status: Discontinued nitroglycerin 2% ointment 0.5 inch, Route: TOP, Drug Form: OINT, Dosing Weight 111.818, kg, TID, Start jorge e: 10/15/13 18:00:00, Duration: 30 day, Stop date: 11/14/13 12:00:00 Notes: 1 gram is approximately 1 inch of nitroglycerin ointment (20 mg NTG pe r gram) (Same as:Nitro-Bid) Start Date: 10/15/13 Stop Date: 10/16/13 Status: Discontinued nitroglycerin 2% ointment 1 inch, Route: TOP, Drug Form: OINT, Dosing Weight 111.818, kg, ONCE, STAT, Star t date: 10/15/13 8:58:00, Stop date: 10/15/13 8:58:00 Notes: 1 gram is approximately 1 inch of nitroglycerin ointment (20 mg NTG pe r gram) (Same as:Nitro-Bid) Start Date: 10/15/13 Stop Date: 10/15/13 Status: Completed nitroglycerin SL Tab 0.4 mg, Route: SL, Drug form: TAB, Q5Min, Dosing Weight 111.818, kg, PRN Chest P ain, Start date: 10/15/13 12:41:00, Duration: 3 doses or times, Stop date: Limit ed # of times Start Date: 10/15/13 Stop Date: 10/15/13 Status: Deleted NovoLOG FlexPen 10 unit, 0.1 mL, Route: SUB-Q, Drug form: SOLN, TID-Before Meals, Start date: 7:50:00, Duration: 30 day, Stop date: 11/14/13 16:50:00 Notes: Roll in palms of hands gently; Do not shake vigorously. (Same as: NovoLO G)"single patient use only" Stable for 28 days at room temperature.Expires in _ ____ days from Date Start Date: 10/16/13 Stop Date: 10/16/13 Status: Discontinued Restoril 7.5 mg, 1 cap, Route: PO, Drug form: CAP, Bedtime, PRN Sleep, Start date: 18:05:00, Duration: 30 day, Stop date: 11/14/13 18:04:00 Notes: (Same As: Restoril) Start Date: 10/15/13 Stop Date: 10/16/13 Status: Discontinued Saline Flush 0.9% 5 ml, Route: IVP, Drug Form: INJ, Dosing Weight 111.818, kg, Q12H, Start date: 0 10/15/13 21:00:00, Duration: 30 day, Stop date: 11/14/13 9:00:00 Notes: (Same as: BD Posiflush) Start Date: 10/15/13 Stop Date: 10/16/13 Status: Discontinued Saline Flush 0.9% 5 ml, Route: IVP, Drug Form: INJ, Dosing Weight 111.818, kg, PRN, PRN Line Flush , Start date: 10/15/13 12:41:00, Duration: 30 day, Stop date: 11/14/13 12:40:00 Notes: (Same as: BD Posiflush) Start Date: 10/15/13 Stop Date: 10/16/13 Status: Discontinued Saline Flush 0.9% 10 mL, Route: IVP, Drug Form: INJ, Dosing Weight 111.818, kg, PRN, PRN Line Flus h, Start date: 10/15/13 8:58:00, Duration: 30 day, Stop date: 11/14/13 8:57:00 Notes: Same as: BD Posiflush Sterile Start Date: 10/15/13 Stop Date: 10/15/13 Status: Discontinued sertraline 50 mg, PO, Daily, 0 Refill(s) Start Date: 10/15/13 Status: Ordered sertraline 50 mg, 1 tab, Route: PO, Drug form: TAB, Daily, Dosing Weight 111.818, kg, Start date: 10/16/13 9:00:00, Duration: 30 day, Stop date: 11/14/13 9:00:00 Notes: (Same as: Zoloft) Start Date: 10/16/13 Stop Date: 10/16/13 Status: Discontinued Tylenol 650 mg, 2 tab, Route: PO, Drug form: TAB, Q4H, Dosing Weight 111.818, kg, PRN Pa in, Start date: 10/15/13 17:57:00, Duration: 30 day, Stop date: 11/14/13 17:56:0 0 Notes: Do not exceed 4 gm/day. (Same as: Tylenol) Start Date: 10/15/13 Stop Date: 10/16/13 Status: Discontinued Vitamin B6 200 mg, PO, Daily, 0 Refill(s) Start Date: 10/15/13 Status: Ordered Vitamin B6 200 mg, 2 tab, Route: PO, Drug form: TAB, Daily, Dosing Weight 111.818, kg, Star t date: 10/16/13 17:00:00, Duration: 30 day, Stop date: 11/14/13 17:00:00 Notes: (Same as: Vitamin B6) Start Date: 10/16/13 Stop Date: 10/16/13 Status: Discontinued Results ELECTROLYTES 1 2 3 Most recent to oldest [Reference Range]: 139 mEq/L (10/16/13 1:55 AM) 134 mEq/L *LOW* (10/15/13 9:20 AM) Sodium Lvl [135-145 mEq/L] 4.1 mEq/L (10/16/13 1:55 AM) 4.0 mEq/L (10/15/13 9:20 AM) Potassium Lvl [3.5-5.1 mEq/L] 98 mEq/L (10/16/13 1:55 AM) 98 mEq/L (10/15/13 9:20 AM) Chloride Lvl [95-109 mEq/L] 37 mEq/L *HI* (8/29/14 1:55 AM) 31 mEq/L (10/15/13 9:20 AM) CO2 [24-32 mEq/L] 8.1 mEq/L *LOW* (10/16/13 1:55 AM) 9.0 mEq/L *LOW* (10/15/13 9:20 AM) AGAP [10.0-20.0 mEq/L] CHEM PANEL 1 2 3 Most recent to oldest [Reference Range]: 0.8 mg/dL (10/16/13 1:55 AM) 0.7 mg/dL (10/15/13 9:20 AM) Creatinine Lvl [0.5-1.4 mg/dL] 75 mL/min/1.73m2 1 *NA* (10/16/13 1:55 AM) 88 mL/min/1.73m2 2 *NA* (10/15/13 9:20 AM) eGFR 17 mg/dL (10/16/13 1:55 AM) 11 mg/dL (10/15/13 9:20 AM) BUN [7-22 mg/dL] 16 (10/15/13 9:20 AM) B/C Ratio [6-25] 202 mg/dL 3 *HI* (10/16/13 1:55 AM) 195 mg/dL 4 *HI* (10/15/13 9:20 AM) Glucose Lvl [70-99 mg/dL] 7.6 g/dL (10/15/13 9:20 AM) Total Protein [6.4-8.4 g/dL] 3.9 g/dL (10/15/13 9:20 AM) Albumin Lvl [3.5-5.0 g/dL] 3.7 g/dL (10/15/13 9:20 AM) Globulin [2.0-4.0 g/dL] 1.1 (10/15/13 9:20 AM) A/G Ratio [0.7-1.6] 8.8 mg/dL (10/16/13 1:55 AM) 9.0 mg/dL (10/15/13 9:20 AM) Calcium Lvl [8.5-10.5 mg/dL] 24 unit/L (10/15/13 9:20 AM) ALT [0-65 unit/L] 21 unit/L (10/15/13 9:20 AM) AST [0-37 unit/L] 100 unit/L (10/15/13 9:20 AM) Alk Phos [39-136 unit/L] 0.7 mg/dL (10/15/13 9:20 AM) Bili Total [0.2-1.3 mg/dL] 1Result Comment: The eGFR is calculated using [...] be mul tiplied by the estimated BMI. 2Result Comment: The eGFR is calculated using [...] be mul tiplied by the estimated BMI. 3Interpretive Data: Adult reference range values reflect the clinical guidelines of the [employer]. 4Interpretive Data: Adult reference range values reflect the clinical guidelines of the [employer]. CARDIAC ENZYMES 1 2 3 Most recent to oldest [Reference Range]: 42 unit/L (10/16/13 1:55 AM) 47 unit/L (10/15/13 6:34 PM) 59 unit/L (10/15/13 9:20 AM) Total CK [12-191 unit/L] 1.5 ng/mL (10/15/13 9:20 AM) CK MB [0.5-3.6 ng/mL] 2.5 (10/15/13 9:20 AM) CK MB Index [0.0-2.5] <0.02 ng/mL (10/16/13 11:21 AM) <0.02 ng/mL (10/16/13 1:55 AM) 0.02 ng/mL (10/15/13 6:34 PM) Troponin-I [0.00-0.40 ng/mL] 103 pg/mL 5 *HI* (10/16/13 1:55 AM) 170 pg/mL 6 *HI* (10/15/13 9:20 AM) BNP [<=100 pg/mL] 5Interpretive Data: Elevated results are in line with increasing severity of congestive heart failure. Minor elevations between 100 and 300 may be seen with Myocardial Ischemia, Sodium retaining drugs, and compensated/treated heart failure. 6Interpretive Data: Elevated results are in line with increasing severity of congestive heart failure. Minor elevations between 100 and 300 may be seen with Myocardial Ischemia, Sodium retaining drugs, and compensated/treated heart failure. LIPIDS 1 2 3 Most recent to oldest [Reference Range]: 3.50 *LOW* (10/16/13 1:55 AM) CHD Risk [3.90-5.80] 140 mg/dL (10/16/13 1:55 AM) Chol [<=199 mg/dL] 113 mg/dL (10/16/13 1:55 AM) Trig [<=149 mg/dL] 40 mg/dL *LOW* (10/16/13 1:55 AM) HDL [>=61 mg/dL] 77 mg/dL (10/16/13 1:55 AM) LDL (Calculated) [<=99 mg/dL] 23 *NA* (10/16/13 1:55 AM) VLDL HEMATOLOGY 1 2 3 Most recent to oldest [Reference Range]: 8.2 K/CMM (10/16/13 1:55 AM) 10.9 K/CMM *HI* (10/15/13 9:20 AM) WBC [3.7-10.4 K/CMM] 3.19 M/CMM *LOW* (10/16/13 1:55 AM) 3.32 M/CMM *LOW* (10/15/13 9:20 AM) RBC [4.20-5.40 M/CMM] 10.0 g/dL *LOW* (10/16/13 1:55 AM) 10.8 g/dL *LOW* (10/15/13 9:20 AM) Hgb [12.0-16.0 g/dL] 30.0 % *LOW* (10/16/13 1:55 AM) 31.4 % *LOW* (10/15/13 9:20 AM) Hct [36.0-48.0 %] 94.0 fL (10/16/13 1:55 AM) 94.5 fL (10/15/13 9:20 AM) MCV [80.0-98.0 fL] 31.5 pg *HI* (10/16/13 1:55 AM) 32.6 pg *HI* (10/15/13 9:20 AM) MCH [27.0-31.0 pg] 33.5 g/dL (10/16/13 1:55 AM) 34.5 g/dL (10/15/13 9:20 AM) MCHC [32.0-36.0 g/dL] 15.0 % *HI* (10/16/13 1:55 AM) 14.8 % *HI* (10/15/13 9:20 AM) RDW [11.5-14.5 %] 179 K/CMM (10/16/13 1:55 AM) 197 K/CMM (10/15/13 9:20 AM) Platelet [133-450 K/CMM] 7.2 fL *LOW* (10/16/13 1:55 AM) 7.1 fL *LOW* (10/15/13 9:20 AM) MPV [7.4-10.4 fL] 72.9 % (10/16/13 1:55 AM) 81.4 % *HI* (10/15/13 9:20 AM) Segs [45.0-75.0 %] 17.9 % *LOW* (10/16/13 1:55 AM) 11.0 % *LOW* (10/15/13 9:20 AM) Lymphocytes [20.0-40.0 %] 6.5 % (10/16/13 1:55 AM) 5.3 % (10/15/13 9:20 AM) Monocytes [2.0-12.0 %] 1.9 % (10/16/13 1:55 AM) 1.1 % (10/15/13 9:20 AM) Eosinophils [0.0-4.0 %] 0.8 % (10/16/13 1:55 AM) 1.2 % *HI* (10/15/13 9:20 AM) Basophils [0.0-1.0 %] 6.0 K/CMM (10/16/13 1:55 AM) 8.9 K/CMM *HI* (10/15/13 9:20 AM) Segs-Bands # [1.5-8.1 K/CMM] 1.5 K/CMM (10/16/13 1:55 AM) 1.2 K/CMM (10/15/13 9:20 AM) Lymphocytes # [1.0-5.5 K/CMM] 0.5 K/CMM (10/16/13 1:55 AM) 0.6 K/CMM (10/15/13 9:20 AM) Monocytes # [0.0-0.8 K/CMM] 0.2 K/CMM (10/16/13 1:55 AM) 0.1 K/CMM (10/15/13 9:20 AM) Eosinophils # [0.0-0.5 K/CMM] 0.1 K/CMM (10/16/13 1:55 AM) 0.1 K/CMM (10/15/13 9:20 AM) Basophils # [0.0-0.2 K/CMM] 30.9 seconds 7 (10/15/13 6:34 PM) PTT [22.9-35.8 seconds] 7Interpretive Data: Heparin Therapeutic Range: 57 - 92 Seconds Medications Administered During Your Visit No data available for this section Immunizations No data available for this section Procedures Procedure Type Body Site Date of Procedure Related Diagnosis Aspiration of knee joint1 Atypical pneumonia screening test2 Bunionectomy CABG x 2 - Coronary artery bypass grafts x 23 Cataract extraction Cholecystectomy Stent placement Tubal ligation 1on levaquin done at [facility] . 2staph 32 yrs ago . 1 yr ago stent placed. Social History Social History Type Response Assessment and Plan Extracted from: Title: Clinical Document Author: Axel Gilbert MD Date: 10/16/13 The patient presented with chest pain and underwent cardiac evaluation including a nuclear stress test which did not show any significant ischemia. The chest pain resolved and the ECG and cardiac enzymes remained negative. The patient was subsequently discharged home in stable condition. She was also evaluated by ID service for possible left leg cllulitis but they determined no active cellulitis and recommended discharge without antibiotics at this time. No new meds prescribed at this time Cardiac diabetic diet Regular activity F/U with her director instrumentation and PCP
--- OUTSIDE RECORDS SUMMARY | 2018-01-09 17:44 | XMS REPORT | Summary of Care ---
Author Author [facility] Organization [facility] Address Unknown Phone Unavailable Encounter HQ Ewelina(FIN) [id number] Date(s): 03/01/15 - 03/01/15 [facility] [address] [place] [address]- Discharge Disposition: Home Attending Physician: Devendra Hagen MD Vital Signs No data available for this section Problem List Condition Effective Dates Status Health Status Informant Cholesterol(Confirme Resolved d) Diabetes(Confirmed) Resolved HTN Resolved (hypertension)(Confi rmed) Myasthenia Resolved gravis(Confirmed) Pneumonia(Confirmed) Resolved 1 Thyroid(Confirmed) Resolved 1staph Allergies, Adverse Reactions, Alerts Substance Reaction Severity Status codeine Active Medications No data available for this section Results No data available for this section Immunizations No data available for this section Procedures Procedure Date Related Diagnosis Body Site Aspiration of knee joint1 Atypical pneumonia screening test2 Bunionectomy CABG x 2 - Coronary artery bypass grafts x 23 Cataract extraction Cholecystectomy Stent placement Tubal ligation 1on levaquin done at [facility] . 2staph 32 yrs ago . 1 yr ago stent placed. Social History Social History Type Response Assessment and Plan No data available for this section
--- OUTSIDE RECORDS SUMMARY | 2018-01-09 17:44 | XMS REPORT | Summary of Care ---
Author Author [facility] Organization [facility] Address Unknown Phone Unavailable Encounter ANGIE Theodore(EDWINA) [id number] Date(s): 01/16/16 - 01/16/16 [facility] [address] [place] [address]- Discharge Disposition: Home or Self Care Attending Physician: Antonia Hauser MD Referring Physician: Antonia Hauser MD Vital Signs Most recent to 1 oldest [Reference Range]: Height 162.56 cm (01/16/16 6:53 AM) Blood Pressure 182/97 mmHg [90-140/60-90 mmHg] *HI* (01/16/16 7:25 AM) Weight 100.909 kg (01/16/16 6:53 AM) Body Mass Index 38.19 m2 (01/16/16 6:53 AM) Problem List Condition Effective Dates Status Health Status Informant Cholesterol(Confirme Resolved d) Diabetes(Confirmed) Resolved HTN Resolved (hypertension)(Confi rmed) Myasthenia Resolved gravis(Confirmed) Pneumonia(Confirmed) Resolved 1 1staph Allergies, Adverse Reactions, Alerts Substance Reaction Severity Status NKDA Active Medications losartan 100 mg oral tablet 100 mg=1 tab, PO, Daily, # 30 tab, 0 Refill(s), other Start Date: 01/16/16 Status: Ordered metoprolol 50 mg oral tablet, extended release 50 mg=1 tab, PO, BID, # 60 tab, 0 Refill(s), other Start Date: 01/16/16 Status: Ordered multivitamin with iron 65 mg=, PO, Daily, 0 Refill(s) Start Date: 01/16/16 Status: Ordered nitroglycerin SL Tab 0.4 mg, 1 tab, Route: SL, Drug form: TAB, Q5Min, Dosing Weight 100.909, kg, PRN Chest Pain, Start date: 01/16/16 9:15:00 MEDICAL FILE CLERK, Duration: 3 doses or times, Stop d ate: Limited # of times Notes: (Same as:Nitroquick, Nitrostat)"Do Not Crush" Sublingual tablet Start Date: 01/16/16 Stop Date: 01/16/16 Status: Discontinued NovoLIN R See Instructions, 35 units SUB-Q QID-Before Meals, 0 Refill(s) Start Date: 01/16/16 Status: Ordered sodium chloride 0.9% 1000 ml INJ 200 mL 200 mL, Rate: 50 ml/hr, Infuse over: 4 hr, Route: IV, Dosing Weight 100.909 kg, Total Volume: 200, Start date: 01/16/16 9:15:00 MEDICAL FILE CLERK, Duration: 24 hr, Stop date: 01/17/16 9:14:00 MEDICAL FILE CLERK Start Date: 01/16/16 Stop Date: 01/16/16 Status: Discontinued Results No data available for this section Immunizations No data available for this section Procedures Procedure Date Related Diagnosis Body Site Aspiration of knee joint1 Atypical pneumonia screening test2 Bunionectomy CABG x 2 - Coronary artery bypass grafts x 23 Cataract extraction Cholecystectomy Stent placement Tubal ligation 1on levaquin done at [facility] . 2staph 32 yrs ago . 1 yr ago stent placed. Social History Social History Type Response Smoking Status Former smoker; Exposure to Tobacco Smoke None; Cigarette Smoking Last 365 Days No; Reg Smoking Cessation Counseling Yes Assessment and Plan No data available for this section
[2018-01-09 18:20] LABS: BASOPHILS % 0.4 % (0.0-1.0); EOSINOPHILS # (AUTO) 0.2 (0.0-0.4); EOSINOPHILS % 1.6 % (0.0-6.0); HEMATOCRIT 31.6 % (34.2-44.1); HEMOGLOBIN 10.3 g/dL (12.0-16.0); LYMPHOCYTES # (AUTO) 1.5 (1.0-3.2); LYMPHOCYTES % 15.7 % (18.0-39.1); MEAN CORPUSCULAR HEMOGLOBIN 30.6 pg (28-32); MEAN CORPUSCULAR HGB CONC 32.6 g/dL (31-35); MEAN CORPUSCULAR VOLUME 93.8 fL (81-99); MONOCYTES # (AUTO) 0.9 (0.2-0.8); MONOCYTES % 9.2 % (4.4-11.3); NEUTROPHILS # (AUTO) 6.7 (2.1-6.9); NEUTROPHILS % 72.7 % (38.7-80.0); PLATELET COUNT 164 x10e3/uL (140-360); RED BLOOD COUNT 3.37 x10e6/uL (3.6-5.1); RED CELL DISTRIBUTION WIDTH 13.9 % (11.7-14.4)
[2018-01-09 18:40] LABS: ALBUMIN 3.9 g/dL (3.5-5.0); ANION GAP 14.7 mmol/L (8-16); CREATININE, SERUM 1.11 mg/dL (0.57-1.11); POTASSIUM 3.7 mmol/L (3.5-5.1)
--- NOTE | 2018-01-09 18:54 | Diagnostic Imaging Report ---
Examination: Single AP view of the chest. COMPARISON: None. INDICATION: Leg swelling, chest pain IMPRESSION: 1. Lines and Tubes: None 2. Lungs are grossly clear. No consolidation or effusion. 3. Cardiomediastinal silhouette is normal for portable AP projection. CABG changes. Pulmonary vasculature is normal. 4. No acute bony abnormalities. Signed by: Dr. Emery Abdi M.D. on 01/09/2018 6:50 PM
[2018-01-09] MEDS: PIPER-TAZ 3.375 GM 50 ML IV SCH ×3 (19:06→23:43)
[2018-01-09] MEDS ORDERED: DEXTROSE 50% SYRINGE 50 ML IV PRN (19:30)
[2018-01-09] MEDS ORDERED: ONDANSETRON HCL INJ 2 MG/ML VIAL IV PRN (19:30)
[2018-01-09] MEDS ORDERED: MORPHINE SULFATE 2 MG/ML SYR IV PRN (19:30)
[2018-01-09 20:00] VITALS: BP 160/83
[2018-01-09] MEDS ORDERED: VANCOMYCIN 1GM/NS 250 ML 250 ML IV SCH (20:00)
[2018-01-09] MEDS: VANCOMYCIN 1GM/NS 250 ML 250 ML IV SCH (20:14)
[2018-01-09] MEDS: INSULIN REGULAR, HUMAN 100 UNIT/1 ML 3ML VIAL SQ SCH (20:14)
[2018-01-09] MEDS: SODIUM CHLORIDE 0.9% 1000ML 1,000 ML IV SCH (20:26)
[2018-01-09 20:55] VITALS: BP 160/83
[2018-01-10] VITALS (7 sets, daily range): BP systolic 123–164; BP diastolic 58–91
[2018-01-10] MEDS: SODIUM CHLORIDE 0.9% 1000ML 1,000 ML IV SCH (05:20)
[2018-01-10] MEDS: PIPER-TAZ 3.375 GM 50 ML IV SCH ×4 (05:30→17:37)
[2018-01-10] MEDS: VANCOMYCIN 1GM/NS 250 ML 250 ML IV SCH ×2 (05:47→18:15)
--- NOTE | 2018-01-10 06:50 | History and Physical ---
REASON FOR ADMISSION: Cellulitis of the right lower extremity. HISTORY OF PRESENT ILLNESS: Patient is a 72-year-old lady who started noticing increased swelling, pain and discomfort of the right lower extremity with some redness and warmth. She presented to the emergency room where she was noted to have right lower extremity cellulitis. She is being admitted for further evaluation and treatment. PAST MEDICAL HISTORY: Significant for coronary artery disease, coronary artery bypass, diabetes, hypertension. PAST SURGICAL HISTORY: Coronary artery bypass. MEDICATIONS: See MAR. ALLERGIES: NONE. SOCIAL HISTORY: Nonsmoker and nondrinker. Lives at home. FAMILY HISTORY: Hypertension. PHYSICAL EXAMINATION VITALS: 99, pulse 77, blood pressure 131/58, and sats 93% on room air. GENERAL: She is in no apparent distress. LUNGS: Clear bilaterally. NECK: Supple. No lymphadenopathy. CARDIOVASCULAR: Regular rate and rhythm. ABDOMEN: Good bowel sounds. Soft and nontender. EXTREMITIES: Shows slight edema of the lower extremities with some redness and warmth to the right lower extremity below the knees and above the ankles. She does have a chronic ulcer on the tip of the 2nd toe on the right, but no discharge noted at that area. NEUROLOGICAL: Nonfocal. ASSESSMENT AND PLAN 1. Cellulitis of the right lower extremity: Continue with intravenous antibiotics. 2. Hypertension: Continue with her medications and monitor her blood pressure. 3. Anemia: Continue to monitor. 4. History of coronary artery disease: Continue current care. 5. Diabetes: Continue current care and monitor. Please see hospital chart for full details. Job#: [id number] CO
[2018-01-10] MEDS ORDERED: MORPHINE SULFATE INJ 4 MG/ML INJ IV PRN (07:45)
[2018-01-10] MEDS: CLOPIDOGREL BISULFATE 75 MG TAB PO SCH (08:20)
[2018-01-10] MEDS: FUROSEMIDE 40 MG TAB PO SCH ×3 (08:20→21:00)
[2018-01-10] MEDS: AMITRIPTYLINE HCL 25 MG TAB PO SCH (08:20)
[2018-01-10] MEDS: METOPROLOL TARTRATE 25 MG TAB PO SCH ×2 (08:20→17:37)
[2018-01-10] MEDS: INSULIN REGULAR, HUMAN 100 UNIT/1 ML 3ML VIAL SQ SCH ×4 (08:20→21:00)
[2018-01-10] MEDS: MONTELUKAST SODIUM 10 MG TAB PO SCH (08:20)
[2018-01-10] MEDS: INSULIN DETEMIR 100 UNIT/ML PEN SQ SCH (23:56)
[2018-01-11] VITALS (9 sets, daily range): BP systolic 123–176; BP diastolic 58–92
[2018-01-11] MEDS: PIPER-TAZ 3.375 GM 50 ML IV SCH ×4 (05:30→19:00)
[2018-01-11] MEDS: VANCOMYCIN 1GM/NS 250 ML 250 ML IV SCH ×2 (06:21→19:35)
[2018-01-11] MEDS: MONTELUKAST SODIUM 10 MG TAB PO SCH (08:10)
[2018-01-11] MEDS: AMITRIPTYLINE HCL 25 MG TAB PO SCH (08:10)
[2018-01-11] MEDS: FUROSEMIDE 40 MG TAB PO SCH ×3 (08:10→21:08)
[2018-01-11] MEDS: METOPROLOL TARTRATE 25 MG TAB PO SCH ×2 (08:10→18:16)
[2018-01-11] MEDS: INSULIN REGULAR, HUMAN 100 UNIT/1 ML 3ML VIAL SQ SCH ×4 (08:10→21:10)
[2018-01-11] MEDS: GABAPENTIN 300 MG CAP PO SCH ×3 (08:10→21:08)
[2018-01-11] MEDS: CLOPIDOGREL BISULFATE 75 MG TAB PO SCH (08:10)
[2018-01-11] MEDS: INSULIN DETEMIR 100 UNIT/ML PEN SQ SCH (21:10)
[2018-01-12] VITALS (8 sets, daily range): BP systolic 132–158; BP diastolic 60–69
[2018-01-12] MEDS: PIPER-TAZ 3.375 GM 50 ML IV SCH ×4 (01:00→17:21)
[2018-01-12] MEDS: VANCOMYCIN 1GM/NS 250 ML 250 ML IV SCH ×2 (05:32→18:09)
[2018-01-12] MEDS: INSULIN REGULAR, HUMAN 100 UNIT/1 ML 3ML VIAL SQ SCH ×4 (07:30→21:15)
[2018-01-12] MEDS: CLOPIDOGREL BISULFATE 75 MG TAB PO SCH (09:30)
[2018-01-12] MEDS: METOPROLOL TARTRATE 25 MG TAB PO SCH ×2 (09:30→17:21)
[2018-01-12] MEDS: FUROSEMIDE 40 MG TAB PO SCH ×3 (09:30→20:09)
[2018-01-12] MEDS: GABAPENTIN 300 MG CAP PO SCH ×3 (09:30→20:09)
[2018-01-12] MEDS: AMITRIPTYLINE HCL 25 MG TAB PO SCH (09:30)
[2018-01-12] MEDS: MONTELUKAST SODIUM 10 MG TAB PO SCH (09:30)
[2018-01-12] MEDS: INSULIN DETEMIR 100 UNIT/ML PEN SQ SCH (21:15)
[2018-01-13] VITALS: BP 143/65
[2018-01-13] MEDS: PIPER-TAZ 3.375 GM 50 ML IV SCH ×2 (05:11)
[2018-01-13] MEDS: VANCOMYCIN 1GM/NS 250 ML 250 ML IV SCH (05:58)
[2018-01-13 06:00] VITALS: BP 123/79
[2018-01-13] MEDS: INSULIN REGULAR, HUMAN 100 UNIT/1 ML 3ML VIAL SQ SCH (07:30)
[2018-01-13 08:56] VITALS: BP 166/70
[2018-01-13] MEDS: METOPROLOL TARTRATE 25 MG TAB PO SCH (09:00)
[2018-01-13] MEDS: GABAPENTIN 300 MG CAP PO SCH (09:00)
[2018-01-13] MEDS: FUROSEMIDE 40 MG TAB PO SCH (09:00)
[2018-01-13] MEDS: AMITRIPTYLINE HCL 25 MG TAB PO SCH (09:00)
[2018-01-13] MEDS: MONTELUKAST SODIUM 10 MG TAB PO SCH (09:00)
[2018-01-13] MEDS: CLOPIDOGREL BISULFATE 75 MG TAB PO SCH (09:00)
[2018-01-13] MEDS ORDERED: LEVAQUIN500 MG PO (09:52)
[2018-01-13 09:57] VITALS: BP 158/62
[2018-01-13 10:00] VITALS: BP 158/62
== END 2018-01-13 10:24 | disposition home or self-care (01) | DRG 603 ==
LOC: ER 17:39 → ERHOLD 19:20 → MED/SURG3 20:47
PROVIDERS: ADMIT Internal Medicine; ATTEND Internal Medicine
DX: L03.115 Cellulitis of right lower limb (principal); D64.9 Anemia, unspecified; I25.10 Atherosclerotic heart disease of native coronary artery without angina pectoris; E11.9 Type 2 diabetes mellitus without complications; I11.0 Hypertensive heart disease with heart failure; E03.9 Hypothyroidism, unspecified; I50.9 Heart failure, unspecified; Z95.1 Presence of aortocoronary bypass graft; I25.2 Old myocardial infarction; Z79.02 Long term (current) use of antithrombotics/antiplatelets; Z79.4 Long term (current) use of insulin
CPT/HCPCS: 36415; 71045; 80053; 80202; 82948; 83880; 85025; 85379; 87040; 93005; 93971; 99284; J2543; J3370; J7030

== ENCOUNTER 2018-10-03 10:53 | Inpatient (IN) | payer MEDICARE, OTHER ==
[~2018-10-03] VITALS: Ht 162.6 cm; Wt 100.7 kg
[~2018-10-03 10:53] MED LIST changes: +HUMALOG 75100 UNITS/ SC; +LEVAQUIN500 MG PO
--- OUTSIDE RECORDS SUMMARY | 2018-10-03 10:56 | XMS REPORT | Continuity of Care Document ---
Author Author GRAVIDI Organization [facility] Address Unknown Phone Unavailable Care Team Providers Care Drill Foreman Name Role Phone [facility] Information Dale Unavailable Unavailable Problems Problem Status Onset Date Classification Date Reported Comments Source Cellulitis Active Problem 01/13/2018 [facility] Hyperglycemia Active Problem 01/13/2018 [facility] Medications Medication Details Route Status Patient Instructions Ordering Provider Order Date Source Acetaminophen With Codeine (Tylenol With Codeine #3 Tablet) 1 Each Tablet Every 4 Hours for Pain Active Holly 03/31/2017 [facility] Amlodipine Besylate 10 Mg Tablet, 10 Mg Oral Daily Active 03/31/2017 [facility] Insulin Lisp Protam/Lisp Human (Humalog 75/25 10ML Vial) 100 Units/Ml Ml, 60 Units Intraven Before Breakfast Active 03/31/2017 [facility] Lisinopril/Hydrochlorothiazide (Lisinopril-Hctz 20/12.5 Tab) 1 Each Tablet, Oral Daily Active 03/31/2017 [facility] Pantoprazole Sodium 40 Mg Tablet.dr, 40 Mg Oral Daily Active 03/31/2017 [facility] Levothyroxine Sodium (Synthroid) 200 Mcg Tablet, 200 Mcg Oral Daily Active 11/29/2011 [facility] Meclizine Hcl (Antivert) 25 Mg Tablet, 25 Mg Oral Daily Active 11/29/2011 [facility] Sertraline Hcl (Zoloft) 50 Mg Tablet, 50 Mg Oral Rt Daily Active 11/29/2011 [facility] Insulin Glargine,Hum.rec.anlog (Lantus) 100 Unit/1 Ml Cartridge, 56 Unit Sub-Q Rt Daily Active 10/24/2011 [facility] Insulin Lispro (Humalog) 100 Unit/1 Ml Insuln.pen, 18 Unit Sub-Q Active 10/24/2011 [facility] Gabapentin 100 Mg Capsule, 100 Mg Oral Rt Bid Active 10/23/2011 [facility] Levothyroxine Sodium (Synthroid) 175 Mcg Tablet, 175 Mcg Oral Rt Daily Active 10/23/2011 [facility] Lisinopril (Prinivil) 20 Mg Tablet, 20 Mg Oral Rt Bid Active 10/23/2011 [facility] Simvastatin (Zocor) 20 Mg Tablet, 20 Mg Oral Rt Daily Active 10/23/2011 [facility] Amitriptyline Hcl 25 Mg Tablet Daily Active [facility] Clopidogrel Bisulfate (Plavix) 75 Mg Tablet Daily Active [facility] Furosemide 40 Mg Tablet Three Times A Day Active [facility] Gabapentin 600 Mg Tablet Three Times A Day Active [facility] Insulin Glargine (Lantus) 100 Units/Ml Ml Bedtime Active [facility] Insulin Lisp Protam/Lisp Human (Humalog 75/25 10ML Vial) 100 Units/Ml Ml Before Meals Active [facility] Levofloxacin (Levaquin) 500 Mg Tablet Daily Active [facility] Metoprolol Tartrate (Lopressor) 25 Mg Tab Twice A Day Active [facility] Montelukast Sodium 10 Mg Tablet Daily Active [facility] Tramadol Hcl (Ultram) 50 Mg Tablet Every 6 Hours as needed Active [facility] Allergies, Adverse Reactions, Alerts No Known Medication Allergies Immunizations No Data Provided for This Section Results Order Name Results Value Reference Range Date Interpretation Comments Source Capillary blood glucose measurement by glucometer (mass/volume) 221 70 - 120 01/12/2018 [facility] Serum or plasma trough vancomycin level at trough (mass/volume) 13.6 5.0 - 10.0 01/11/2018 [facility] Blood leukocytes automated count (number/volume) 9.26 4.8 - 10.8 01/09/2018 [facility] Blood erythrocytes automated count (number/volume) 3.37 3.6 - 5.1 01/09/2018 [facility] Blood hemoglobin measurement (moles/volume) 10.3 12.0 - 16.0 01/09/2018 [facility] Automated blood hematocrit (volume fraction) 31.6 34.2 - 44.1 01/09/2018 [facility] Automated erythrocyte mean corpuscular volume 93.8 81 - 99 01/09/2018 [facility] Automated erythrocyte mean corpuscular hemoglobin (mass per erythrocyte) 30.6 28 - 32 01/09/2018 [facility] Automated erythrocyte mean corpuscular hemoglobin concentration measurement (mass/volume) 32.6 31 - 35 01/09/2018 [facility] RDW BldCo-Rto 13.9 11.7 - 14.4 01/09/2018 [facility] Automated blood platelet count (count/volume) 164 140 - 360 01/09/2018 [facility] Automated blood segmented neutrophil count as percentage of total leukocytes 72.7 38.7 - 80.0 01/09/2018 [facility] Automated blood lymphocyte count as percentage ot total leukocytes 15.7 18.0 - 39.1 01/09/2018 [facility] Automated blood monocyte count as percentage of total leukocytes 9.2 4.4 - 11.3 01/09/2018 [facility] Automated blood eosinophil count as percentage of total leukocytes 1.6 0.0 - 6.0 01/09/2018 [facility] Automated blood basophil count as percentage of total leukocytes 0.4 0.0 - 1.0 01/09/2018 [facility] IM GRANULOCYTES % 0.4 0.0 - 1.0 01/09/2018 [facility] Automated blood neutrophil count 6.7 2.1 - 6.9 01/09/2018 [facility] Blood lymphocytes count (number/volume) 1.5 1.0 - 3.2 01/09/2018 [facility] Blood monocytes automated count (number/volume) 0.9 0.2 - 0.8 01/09/2018 [facility] Automated blood eosinophil count 0.2 0.0 - 0.4 01/09/2018 [facility] Automated blood basophil count (count/volume) 0.0 0.0 - 0.1 01/09/2018 [facility] Absolute Immature Granulocyte (auto 0.04 0 - 0.1 01/09/2018 [facility] Fibrin D-dimer DDU measurement in platelet poor plasma (mass/volume) 0.70 0.00 - 0.45 01/09/2018 [facility] Serum or plasma sodium measurement (moles/volume) 141 136 - 145 01/09/2018 [facility] Serum or plasma potassium measurement (moles/volume) 3.7 3.5 - 5.1 01/09/2018 [facility] Serum or plasma chloride measurement (moles/volume) 99 98 - 107 01/09/2018 [facility] Serum or plasma carbon dioxide, total measurement (moles/volume) 31 22 - 29 01/09/2018 [facility] Serum or plasma anion gap 14.7 8 - 16 01/09/2018 [facility] Serum or plasma urea nitrogen measurement (mass/volume) 26 7 - 26 01/09/2018 [facility] Serum or plasma creatinine measurement (mass/volume) 1.11 0.57 - 1.11 01/09/2018 [facility] Serum or plasma urea nitrogen/creatinine mass ratio 23 6 - 25 01/09/2018 [facility] Estimated glomerular filtration rate (GFR) determination 48 60 01/09/2018 [facility] Glucose measurement 309 74 - 118 01/09/2018 [facility] Serum or plasma calcium measurement (mass/volume) 10.0 8.4 - 10.2 01/09/2018 [facility] Serum or plasma total bilirubin measurement (mass/volume) 0.7 0.2 - 1.2 01/09/2018 [facility] Aspartate Amino Transf (AST/SGOT) 28 5 - 34 01/09/2018 [facility] Serum or plasma alanine aminotransferase measurement (enzymatic activity/volume) 25 0 - 55 01/09/2018 [facility] Serum or plasma protein measurement (mass/volume) 7.7 6.5 - 8.1 01/09/2018 [facility] Serum or plasma albumin measurement (mass/volume) 3.9 3.5 - 5.0 01/09/2018 [facility] Plasma globulin measurement (mass/volume) 3.8 2.3 - 3.5 01/09/2018 [facility] Serum or plasma albumin/globulin mass ratio 1.0 0.8 - 2.0 01/09/2018 [facility] Serum or plasma alkaline phosphatase measurement (enzymatic activity/volume) 127 40 - 150 01/09/2018 [facility] BNP Bld-mCnc 113.6 0 - 100 01/09/2018 [facility] Blood culture NO GROWTH AFTER 72 HOURS 01/09/2018 [facility] Prothrombin time (PT) in platelet poor plasma by coagulation assay 12.8 11.9 - 14.5 03/31/2017 [facility] INR in Platelet poor plasma by Coagulation assay 1.04 03/31/2017 [facility] Activated partial thromboplastin time (aPTT) in platelet poor plasma bycoagulation assay 26.9 23.8 - 35.5 03/31/2017 [facility] Urine color determination YELLOW YELLOW 03/31/2017 [facility] Urine clarity SL CLOUDY CLEAR 03/31/2017 [facility] Specific gravity of Urine by Test strip 1.015 1.010 - 1.025 03/31/2017 [facility] Urine pH measurement by automated test strip 5 5 - 7 03/31/2017 [facility] Urine leukocyte esterase detection by dipstick NEGATIVE NEGATIVE 03/31/2017 [facility] Urine nitrite detection NEGATIVE NEGATIVE 03/31/2017 [facility] Urine protein measurement by test strip (mass/volume) NEGATIVE NEGATIVE 03/31/2017 [facility] Urine glucose detection 3+ NEGATIVE 03/31/2017 [facility] Urine ketones detection by automated test strip NEGATIVE NEGATIVE 03/31/2017 [facility] Urine urobilinogen measurement by test strip (mass/volume) 0.2 0.2 - 1 03/31/2017 [facility] Urine total bilirubin measurement (mass/volume) NEGATIVE NEGATIVE 03/31/2017 [facility] Urine erythrocytes detection NEGATIVE NEGATIVE 03/31/2017 [facility] Automated urine sediment leukocyte count by microscopy (number/high power field) NONE 0 - 5 03/31/2017 [facility] Erythrocytes detection in urine sediment by light microscopy NONE 0 - 5 03/31/2017 [facility] Bacteria detection in urine sediment by light microscopy FEW NONE 03/31/2017 [facility] Epithelial cells detection in urine sediment by light microscopy MODERATE NONE 03/31/2017 [facility] Pathology Reports No Data Provided for This Section Diagnostic Reports No Data Provided for This Section Consultation Notes No Data Provided for This Section Discharge Summaries No Data Provided for This Section History and Physicals No Data Provided for This Section Vital Signs No Data Provided for This Section Encounters Location Location Details Encounter Type Encounter Number Reason For Visit Attending Provider ADM Date DC Date Status Source Departed Emergency Room [id number] DEREK WELLS MD 03/31/2017 03/31/2017 [facility] Discharged Inpatient [id number] VIELKA GRIMES MD 01/09/2018 01/13/2018 [facility] Procedures Procedure Code Date Perfomer Comments Source EMERGENCY DEPT VISIT [id number] 03/31/2017 [facility] MRI jnt of lwr extre w/o dye [id number] 03/31/2017 [facility] Magnetic resonance imaging of pelvis without contrast [id number] 03/31/2017 [facility] Assessment and Plan No Data Provided for This Section Plan of Care Plan of Care Date Source Discharge Date 01/13/18 10:24am Disposition HOME, SELF-CARE Instructions/Education Provided Cellulitis Foot Care for Diabetics Hyperglycemia Prescriptions See Medication Section Referrals VIELKA GRIMES MD (Internal Medicine) Order Date: 7-10 Days Entered Date: 01/13/2018 6:43am Address: [address] [place] [id number] Additional Instructions/Education DIABETIC DIET AND FOLLOW UP WITH PCP IN 1 TO 2 WEEKS 01/13/2018 [facility] Social History Social History Date Source Social History Problem Response Recorded Date/Time Onset Date Status Hx Psychiatric Problems Yes 10/24/2011 3:50am Not Applicable Not Applicable Hx Eating Disorder No 10/24/2011 3:50am Not Applicable Not Applicable Hx Substance Use Disorder No 10/24/2011 3:50am Not Applicable Not Applicable Hx Depression Yes 10/24/2011 3:50am Not Applicable Not Applicable 01/13/2018 [facility] Family History No Data Provided for This Section Advance Directives Order Name Results Value Date Source Advance Directives Advance Directives Directive Response Recorded Date/Time Does the patient have an advance directive? No 01/09/18 8:55pm If yes, is advance directive on file with [facility]? No 01/09/18 8:55pm If not on file with [facility] will patient provide a copy? No 01/09/18 8:55pm Do you have a Directive to Physician? No 01/09/18 6:58pm Do you have a Medical Power of President And Chief Commercial Officer? No 01/09/18 6:58pm Do you have an out of hospital Do Not Resuscitate Order? No 01/09/18 6:58pm Do you have any special needs we should be aware of? No 01/09/18 6:58pm Do you have a support person here with you today? Yes 01/09/18 6:58pm Did patient receive Notice of Privacy Practices? Yes 01/09/18 6:58pm Did patient receive patient rights and responsibilities? Yes 01/09/18 6:58pm 01/13/2018 [facility] Functional Status No Data Provided for This Section
[2018-10-03] MEDS ORDERED: SODIUM CHLORIDE 0.9% 500ML 500 ML IV STA (11:10)
[2018-10-03] MEDS ORDERED: CEFEPIME HCL 2 GM VIAL IV ONE (11:15)
[2018-10-03] MEDS ORDERED: ACETAMINOPHEN 325 MG TAB PO ONE (11:30)
[2018-10-03 11:44] LABS: BASOPHILS % 0.4 % (0.0-1.0); EOSINOPHILS # (AUTO) 0.1 (0.0-0.4); EOSINOPHILS % 1.4 % (0.0-6.0); HEMATOCRIT 29.3 % (34.2-44.1); HEMOGLOBIN 9.7 g/dL (12.0-16.0); LYMPHOCYTES # (AUTO) 1.3 (1.0-3.2); LYMPHOCYTES % 12.2 % (18.0-39.1); MEAN CORPUSCULAR HGB CONC 33.1 g/dL (31-35); MEAN CORPUSCULAR VOLUME 93.6 fL (81-99); MONOCYTES # (AUTO) 0.8 (0.2-0.8); MONOCYTES % 7.7 % (4.4-11.3); NEUTROPHILS % 77.9 % (38.7-80.0); PLATELET COUNT 138 x10e3/uL (140-360); RED BLOOD COUNT 3.13 x10e6/uL (3.6-5.1); RED CELL DISTRIBUTION WIDTH 13.5 % (11.7-14.4)
[2018-10-03 11:55] LABS: INR 0.95; PROTHROMBIN TIME 13.2 seconds (11.9-14.5)
[2018-10-03 11:59] LABS: ALBUMIN 3.7 g/dL (3.5-5.0); ALBUMIN/GLOBULIN RATIO 1.1 (0.8-2.0); CALCIUM 9.1 mg/dL (8.4-10.2); CREATININE, SERUM 0.94 mg/dL (0.57-1.11)
[2018-10-03] MEDS ORDERED: CEFEPIME 2 GM/NS 0.9% 100 ML 100 ML IV ONE (12:00)
[2018-10-03] MEDS ORDERED: MORPHINE SULFATE 2 MG/ML SYR 1ML IV PRN (12:45)
[2018-10-03] MEDS ORDERED: ENALAPRILAT IV INJ 1.25 MG/ML VIAL IV PRN (12:45)
[2018-10-03] MEDS ORDERED: HYDROCODONE/APAP 7.5MG-325MG 1 EA TAB PO PRN (12:45)
[2018-10-03] MEDS ORDERED: CLONIDINE HCL 0.2 MG TAB PO PRN (12:45)
[2018-10-03] MEDS ORDERED: IBUPROFEN 200 MG TAB PO PRN (12:45)
[2018-10-03] MEDS ORDERED: SODIUM CHLORIDE FLUSH 10 ML SYR INJ PRN (12:45)
[2018-10-03] MEDS ORDERED: INSULIN REGULAR, HUMAN 100 UNIT/1 ML 3ML VIAL IV ONE (12:45)
[2018-10-03] MEDS ORDERED: ZOLPIDEM TARTRATE 5 MG TAB PO PRN (12:45)
[2018-10-03] MEDS ORDERED: DEXTROSE 50% SYRINGE 50 ML IV PRN (12:45)
[2018-10-03] MEDS ORDERED: DIPHENHYDRAMINE HCL INJ 50 MG/ML VIAL IV PRN (12:45)
[2018-10-03] MEDS ORDERED: ONDANSETRON HCL INJ 2MG/ML 2ML 2 MG/ML VIAL IV PRN (12:45)
[2018-10-03] MEDS ORDERED: INSULIN GLARGINE 100 UNITS/ML VIAL SQ ONE (12:45)
--- NOTE | 2018-10-03 12:49 | Diagnostic Imaging Report ---
Chest, 1 view, 10/03/2018. History: Shortness of breath. Comparison: 01/09/2018. Findings: The cardiomediastinal silhouette and pulmonary vasculature are mildly prominent. There is no focal consolidation or pleural effusion. Median sternotomy wires and CABG clips are again noted. There are no acute osseous or soft tissue abnormalities. Impression: Mild cardiomegaly and vascular congestion. Signed by: Zach Shaver on 10/03/2018 12:46 PM
--- NOTE | 2018-10-03 12:53 | Diagnostic Imaging Report ---
Right foot, 3 views. History: Second digit cellulitis. Findings: There is soft tissue swelling of the second toe. Bone mineralization is normal. There is no evidence of fracture or dislocation. There is no visible lytic lesion or periosteal reaction. There is severe first MTP joint space narrowing and subchondral sclerosis with osteophytosis. Mild degenerative changes are also noted in the interphalangeal joints. IMPRESSION: Second digit soft tissue swelling without visible osseous abnormality. Nuclear medicine bone scan or MRI would be more sensitive for detection of early osteomyelitis. Signed by: Zach Shaver on 10/03/2018 12:50 PM
[2018-10-03 12:56] LABS: CREATINE KINASE 33 IU/L (29-168)
[2018-10-03] MEDS ORDERED: VANCOMYCIN 1GM/NS 250 ML 250 ML IV ONE (13:00)
--- OUTSIDE RECORDS SUMMARY | 2018-10-03 13:18 | XMS REPORT | Continuity of Care Document ---
Author Author Yipit Organization [facility] Address Unknown Phone Unavailable Care Team Providers Care Tin Pourer Name Role Phone [facility] Information [place] Unavailable Unavailable Problems Problem Status Onset Date Classification Date Reported Comments Source Cellulitis Active Problem 01/13/2018 [facility] Hyperglycemia Active Problem 01/13/2018 [facility] Medications Medication Details Route Status Patient Instructions Ordering Provider Order Date Source Acetaminophen With Codeine (Tylenol With Codeine #3 Tablet) 1 Each Tablet Every 4 Hours for Pain Active Holly 03/31/2017 [facility] Amlodipine Besylate 10 Mg Tablet, 10 Mg Oral Daily Active 03/31/2017 [facility] Insulin Lisp Protam/Lisp Human (Humalog 75/25 10ML Vial) 100 Units/Ml Ml, 60 Units Intraven Before Breakfast Active 03/31/2017 [facility] Lisinopril/Hydrochlorothiazide (Lisinopril-Hctz 20/12.5 Tab) 1 Each Tablet, Oral Daily Active 03/31/2017 [facility] Pantoprazole Sodium 40 Mg Tablet.dr, 40 Mg Oral Daily Active 03/31/2017 [facility] Levothyroxine Sodium (Synthroid) 200 Mcg Tablet, 200 Mcg Oral Daily Active 11/29/2011 [facility] Meclizine Hcl (Antivert) 25 Mg Tablet, 25 Mg Oral Daily Active 11/29/2011 [facility] Sertraline Hcl (Zoloft) 50 Mg Tablet, 50 Mg Oral Rt Daily Active 11/29/2011 [facility] Insulin Glargine,Hum.rec.anlog (Lantus) 100 Unit/1 Ml Cartridge, 56 Unit Sub-Q Rt Daily Active 10/24/2011 [facility] Insulin Lispro (Humalog) 100 Unit/1 Ml Insuln.pen, 18 Unit Sub-Q Active 10/24/2011 [facility] Gabapentin 100 Mg Capsule, 100 Mg Oral Rt Bid Active 10/23/2011 [facility] Levothyroxine Sodium (Synthroid) 175 Mcg Tablet, 175 Mcg Oral Rt Daily Active 10/23/2011 [facility] Lisinopril (Prinivil) 20 Mg Tablet, 20 Mg Oral Rt Bid Active 10/23/2011 [facility] Simvastatin (Zocor) 20 Mg Tablet, 20 Mg Oral Rt Daily Active 10/23/2011 [facility] Amitriptyline Hcl 25 Mg Tablet Daily Active [facility] Clopidogrel Bisulfate (Plavix) 75 Mg Tablet Daily Active [facility] Furosemide 40 Mg Tablet Three Times A Day Active [facility] Gabapentin 600 Mg Tablet Three Times A Day Active [facility] Insulin Glargine (Lantus) 100 Units/Ml Ml Bedtime Active [facility] Insulin Lisp Protam/Lisp Human (Humalog 75/25 10ML Vial) 100 Units/Ml Ml Before Meals Active [facility] Levofloxacin (Levaquin) 500 Mg Tablet Daily Active [facility] Metoprolol Tartrate (Lopressor) 25 Mg Tab Twice A Day Active [facility] Montelukast Sodium 10 Mg Tablet Daily Active [facility] Tramadol Hcl (Ultram) 50 Mg Tablet Every 6 Hours as needed Active [facility] Allergies, Adverse Reactions, Alerts No Known Medication Allergies Immunizations No Data Provided for This Section Results Order Name Results Value Reference Range Date Interpretation Comments Source Capillary blood glucose measurement by glucometer (mass/volume) 221 70 - 120 01/12/2018 [facility] Serum or plasma trough vancomycin level at trough (mass/volume) 13.6 5.0 - 10.0 01/11/2018 [facility] Blood leukocytes automated count (number/volume) 9.26 4.8 - 10.8 01/09/2018 [facility] Blood erythrocytes automated count (number/volume) 3.37 3.6 - 5.1 01/09/2018 [facility] Blood hemoglobin measurement (moles/volume) 10.3 12.0 - 16.0 01/09/2018 [facility] Automated blood hematocrit (volume fraction) 31.6 34.2 - 44.1 01/09/2018 [facility] Automated erythrocyte mean corpuscular volume 93.8 81 - 99 01/09/2018 [facility] Automated erythrocyte mean corpuscular hemoglobin (mass per erythrocyte) 30.6 28 - 32 01/09/2018 [facility] Automated erythrocyte mean corpuscular hemoglobin concentration measurement (mass/volume) 32.6 31 - 35 01/09/2018 [facility] RDW BldCo-Rto 13.9 11.7 - 14.4 01/09/2018 [facility] Automated blood platelet count (count/volume) 164 140 - 360 01/09/2018 [facility] Automated blood segmented neutrophil count as percentage of total leukocytes 72.7 38.7 - 80.0 01/09/2018 [facility] Automated blood lymphocyte count as percentage ot total leukocytes 15.7 18.0 - 39.1 01/09/2018 [facility] Automated blood monocyte count as percentage of total leukocytes 9.2 4.4 - 11.3 01/09/2018 [facility] Automated blood eosinophil count as percentage of total leukocytes 1.6 0.0 - 6.0 01/09/2018 [facility] Automated blood basophil count as percentage of total leukocytes 0.4 0.0 - 1.0 01/09/2018 [facility] IM GRANULOCYTES % 0.4 0.0 - 1.0 01/09/2018 [facility] Automated blood neutrophil count 6.7 2.1 - 6.9 01/09/2018 [facility] Blood lymphocytes count (number/volume) 1.5 1.0 - 3.2 01/09/2018 [facility] Blood monocytes automated count (number/volume) 0.9 0.2 - 0.8 01/09/2018 [facility] Automated blood eosinophil count 0.2 0.0 - 0.4 01/09/2018 [facility] Automated blood basophil count (count/volume) 0.0 0.0 - 0.1 01/09/2018 [facility] Absolute Immature Granulocyte (auto 0.04 0 - 0.1 01/09/2018 [facility] Fibrin D-dimer DDU measurement in platelet poor plasma (mass/volume) 0.70 0.00 - 0.45 01/09/2018 [facility] Serum or plasma sodium measurement (moles/volume) 141 136 - 145 01/09/2018 [facility] Serum or plasma potassium measurement (moles/volume) 3.7 3.5 - 5.1 01/09/2018 [facility] Serum or plasma chloride measurement (moles/volume) 99 98 - 107 01/09/2018 [facility] Serum or plasma carbon dioxide, total measurement (moles/volume) 31 22 - 29 01/09/2018 [facility] Serum or plasma anion gap 14.7 8 - 16 01/09/2018 [facility] Serum or plasma urea nitrogen measurement (mass/volume) 26 7 - 26 01/09/2018 [facility] Serum or plasma creatinine measurement (mass/volume) 1.11 0.57 - 1.11 01/09/2018 [facility] Serum or plasma urea nitrogen/creatinine mass ratio 23 6 - 25 01/09/2018 [facility] Estimated glomerular filtration rate (GFR) determination 48 60 01/09/2018 [facility] Glucose measurement 309 74 - 118 01/09/2018 [facility] Serum or plasma calcium measurement (mass/volume) 10.0 8.4 - 10.2 01/09/2018 [facility] Serum or plasma total bilirubin measurement (mass/volume) 0.7 0.2 - 1.2 01/09/2018 [facility] Aspartate Amino Transf (AST/SGOT) 28 5 - 34 01/09/2018 [facility] Serum or plasma alanine aminotransferase measurement (enzymatic activity/volume) 25 0 - 55 01/09/2018 [facility] Serum or plasma protein measurement (mass/volume) 7.7 6.5 - 8.1 01/09/2018 [facility] Serum or plasma albumin measurement (mass/volume) 3.9 3.5 - 5.0 01/09/2018 [facility] Plasma globulin measurement (mass/volume) 3.8 2.3 - 3.5 01/09/2018 [facility] Serum or plasma albumin/globulin mass ratio 1.0 0.8 - 2.0 01/09/2018 [facility] Serum or plasma alkaline phosphatase measurement (enzymatic activity/volume) 127 40 - 150 01/09/2018 [facility] BNP Bld-mCnc 113.6 0 - 100 01/09/2018 [facility] Blood culture NO GROWTH AFTER 72 HOURS 01/09/2018 [facility] Prothrombin time (PT) in platelet poor plasma by coagulation assay 12.8 11.9 - 14.5 03/31/2017 [facility] INR in Platelet poor plasma by Coagulation assay 1.04 03/31/2017 [facility] Activated partial thromboplastin time (aPTT) in platelet poor plasma bycoagulation assay 26.9 23.8 - 35.5 03/31/2017 [facility] Urine color determination YELLOW YELLOW 03/31/2017 [facility] Urine clarity SL CLOUDY CLEAR 03/31/2017 [facility] Specific gravity of Urine by Test strip 1.015 1.010 - 1.025 03/31/2017 [facility] Urine pH measurement by automated test strip 5 5 - 7 03/31/2017 [facility] Urine leukocyte esterase detection by dipstick NEGATIVE NEGATIVE 03/31/2017 [facility] Urine nitrite detection NEGATIVE NEGATIVE 03/31/2017 [facility] Urine protein measurement by test strip (mass/volume) NEGATIVE NEGATIVE 03/31/2017 [facility] Urine glucose detection 3+ NEGATIVE 03/31/2017 [facility] Urine ketones detection by automated test strip NEGATIVE NEGATIVE 03/31/2017 [facility] Urine urobilinogen measurement by test strip (mass/volume) 0.2 0.2 - 1 03/31/2017 [facility] Urine total bilirubin measurement (mass/volume) NEGATIVE NEGATIVE 03/31/2017 [facility] Urine erythrocytes detection NEGATIVE NEGATIVE 03/31/2017 [facility] Automated urine sediment leukocyte count by microscopy (number/high power field) NONE 0 - 5 03/31/2017 [facility] Erythrocytes detection in urine sediment by light microscopy NONE 0 - 5 03/31/2017 [facility] Bacteria detection in urine sediment by light microscopy FEW NONE 03/31/2017 [facility] Epithelial cells detection in urine sediment by light microscopy MODERATE NONE 03/31/2017 [facility] Pathology Reports No Data Provided for [...] DC Date Status Source Departed Emergency Room [id number] DEREK WELLS MD 03/31/2017 03/31/2017 [facility] Discharged Inpatient [id number] VIELKA GRIMES MD 01/09/2018 01/13/2018 [facility] Procedures Procedure Code Date Perfomer Comments Source EMERGENCY DEPT VISIT [id number] 03/31/2017 [facility] MRI jnt of lwr extre w/o dye [id number] 03/31/2017 [facility] Magnetic resonance imaging of pelvis without contrast [id number] 03/31/2017 [place] [facility] Assessment and Plan No Data Provided for This Section Plan of Care Plan of Care Date Source Discharge Date 01/13/18 10:24am Disposition HOME, SELF-CARE Instructions/Education Provided Cellulitis Foot Care for Diabetics Hyperglycemia Prescriptions See Medication Section Referrals VIELKA GRIMES MD (Internal Medicine) Order Date: 7-10 Days Entered Date: 01/13/2018 6:43am Address: [address] [place] [phone] Additional Instructions/Education DIABETIC DIET AND FOLLOW UP WITH PCP IN 1 TO 2 WEEKS 01/13/2018 [facility] Social History Social History Date Source Social History Problem Response Recorded Date/Time Onset Date Status Hx Psychiatric Problems Yes 10/24/2011 3:50am Not Applicable Not Applicable Hx Eating Disorder No 10/24/2011 3:50am Not Applicable Not Applicable Hx Substance Use Disorder No 10/24/2011 3:50am Not Applicable Not Applicable Hx Depression Yes 10/24/2011 3:50am Not Applicable Not Applicable 01/13/2018 [facility] Family History No Data Provided for This Section Advance Directives Order Name Results Value Date Source Advance Directives Advance Directives Directive Response Recorded Date/Time Does the patient have an advance directive? No 01/09/18 8:55pm If yes, is advance directive on file with [facility]? No 01/09/18 8:55pm If not on file with [facility] will patient provide a copy? No 01/09/18 8:55pm Do you have a Directive to Physician? No 01/09/18 6:58pm Do you have a Medical Power of Coordinator Of Placement? No 01/09/18 6:58pm Do you have an [...] rights and responsibilities? Yes 01/09/18 6:58pm 01/13/2018 [facility] Functional Status No Data Provided for This Section
--- NOTE | 2018-10-03 13:49 | NUR ---
REPORT CALLED TO LYNDON SCHMITT AT THIS TIME
--- NOTE | 2018-10-03 14:15 | NUR ---
PATIENT C/O CHEST PAIN AND NAUSEA AT THIS TIME; PATIENT NOTED TO BE TACHYCARDIC. PATIENT HAD SIMILAR REACTION TO VANCOMYCIN BEFORE. INITIAL C/O NAUSEA BEGAN APPROX 20 MINUTES AFTER VANCOMYCIN IV STARTED. PATIENT GIVEN ZOFRAN AND REPORTED FEELING MUCH BETTER AFTERWARDS. VANCOMYCIN STOPPED AT THIS TIME, EKG DONE AND SHOWN TO ER MD, ORDER FOR REPEAT CARDIAC ENZYMES Q6H X 2 GIVEN. NEXT CARDIAC ENZYMES DUE AT 1700. INITAL TROPONIN WAS NEGATIVE.
[2018-10-03 15:25] VITALS: BP 111/59
--- NOTE | 2018-10-03 15:40 | NUR ---
120/55, 94 HR, 100% ON RA, 20 RR, 97.9F ORAL
[2018-10-03 16:03] VITALS: BP 111/59
--- NOTE | 2018-10-03 16:15 | NUR ---
TELEPHONED MD MURRELL REGARDING LABS, TO MAKE AWARE OF REACTION TO VANCOMYCIN, AND TO REVIEW HOME MEDICATIONS, AWAITING CALL BACK
[2018-10-03 16:17] VITALS: BP 111/59
[2018-10-03] MEDS: INSULIN REGULAR, HUMAN 100 UNIT/1 ML 3ML VIAL SQ SCH ×2 (16:30→21:54)
[2018-10-03] MEDS: FAMOTIDINE 20 MG TAB PO SCH (17:30)
[2018-10-03 17:53] LABS: CREATINE KINASE MB 2.1 ng/mL (0-5.0)
--- NOTE | 2018-10-03 17:57 | NUR ---
SPOKE WITH MD MURRELL, MADE AWARE OF CURRENT LACTIC ACID, OKAYED TO GIVE LOVENOX , WILL REVIEW HOME MEDICATION UPON ROUNDING
[2018-10-03] MEDS: ENOXAPARIN SOD INJ 40 MG/0.4 ML SYR SC SCH (18:00)
[2018-10-03] MEDS ORDERED: MONTELUKAST SODIUM 10 MG TAB PO PRN (19:30)
[2018-10-03] MEDS ORDERED: AMITRIPTYLINE HCL 25 MG TAB PO PRN (19:30)
[2018-10-03] MEDS ORDERED: METOPROLOL TARTRATE 25 MG TAB PO SCH (19:30)
[2018-10-03 19:56] LABS: % IRON SATURATION 10 % (15-50); IRON 32 ug/dL (50-170); TOTAL IRON BINDING CAPACITY 305 ug/dL (261-478); TRANSFERRIN 218 mg/dL (180-382)
[2018-10-03 20:00] VITALS: BP 115/56
--- NOTE | 2018-10-03 20:00 | NUR ---
SPOKE WITH DR. PATEL, AWARE OF ROUTINE CONSULT. WILL SEE PATIENT IN THE MORNING.
--- NOTE | 2018-10-03 20:29 | History and Physical ---
REASON FOR ADMISSION: Ms. Diane is a 73-year-old, who comes in with pain in the lower extremity and swelling and in the right lower extremity with tenderness in the toe for the last 2 weeks. HISTORY OF PRESENT ILLNESS: Ms. Diane, who is a diabetic with uncontrolled diabetes, hypertension, and COPD, was in usual state of health until about 2 weeks ago. The patient presented to sheriff's officer, Dr. Galloway, seen by him and biopsy was taken. No results have been found yet. The patient was also found to have probably a fungal infection and the patient was complaining of pain for the last two days, which is gradual and severity of 8/10. The patient came in with a foul-smelling discharge and pain and also redness and swelling in the toe and patient admitted for cellulitis of the right toe. PAST MEDICAL HISTORY: History of hypertension, history of hyperlipidemia, history of coronary artery disease, history of COPD, history of uncontrolled diabetes mellitus with nephropathy, neuropathy, and history of insomnia. MEDICATIONS: She takes are sumatriptan 25 mg at nighttime, clopidogrel 75 mg daily, Lasix 40 mg 3 times a day, gabapentin 600 mg 3 times a day. The patient takes insulin Humalog 25 units before meals and at bedtime, Lantus 50 units at nighttime, montelukast 10 mg daily, and also metoprolol 25 mg q.12 hours. SOCIAL HISTORY: No EtOH. No IV drug abuse. History of smoking in the past. Currently nonsmoker. REVIEW OF SYSTEMS: Negative for chest pain. Positive shortness of breath. No nausea. No vomiting. No diarrhea. No rectal bleeding. No hematochezia. No hematemesis. Positive for pain in the toe. Positive for shortness of breath on exertion. No diplopia. No blurry vision. No chest pain. PAST SURGICAL HISTORY: History of CABG, history of cholecystectomy, history of meniscectomy and history of lung surgery secondary to staph pneumonia, possibly thoracotomy. The patient also has multiple cardiac stents and seen by salesperson [employer] in [facility]. ALLERGIES: THE PATIENT HAS ALLERGY TO VANCOMYCIN. PHYSICAL EXAMINATION: GENERAL: The patient is alert and oriented x3. VITAL SIGNS: Temperature is 97.9, pulse of 102, respirations of 22, blood pressure is 111/59 pulse oximetry of 94% on room air. HEENT: Normocephalic, atraumatic. Pupils are reactive to light and accommodation. CVS: S1, S2 normal. Regular rate and rhythm. ABDOMEN: Nontender, nondistended. LUNGS: Decreased air entry into all lung rojas. EXTREMITIES: Right lower extremity second digit with malodorous discharge. Positive for swelling. Positive for erythema and also ulceration on the toe. NEUROLOGIC: Decreased sensation in lower bases and good peripheral pulses. Gait was normal. Otherwise, no motor deficits. LABORATORY VALUES: Initial white count was 10.8, hemoglobin of 9.7, hematocrit of 29.3. Chemistries show a sodium of 135, potassium 4.0, BUN was 18, creatinine 0.94, CO2 was 31. Lactic acid is 18.2. Troponins have been trended to be negative. ASSESSMENT AND PLAN: A 73-year-old female with diabetic foot ulcer. The patient is to be admitted to the hospital. IV antibiotic has been started. The patient is also on insulin for diabetes. For her hypertension, we will continue antihypertensive medications. Continue Plavix and also her statins. We will consult Dr. Galloway for a Podiatry consult and also continue with antibiotics. The patient is allergic to vancomycin. We will start the patient on clindamycin 300 mg q.6 hours and also order an MRI of the right foot. Additional diagnosis includes chronic obstructive pulmonary disease and anemia of chronic disease. Check her iron panel. Further recommendation per clinical course. We will continue to monitor the patient and also consult with Podiatry. MD VENKATESH Graff/MODL /[id number]
[2018-10-03 21:00] VITALS: BP 128/83
[2018-10-03] MEDS: CLINDAMYCIN 300MG 50 ML IV SCH (21:00)
[2018-10-03] MEDS ORDERED: NON-FORMULARY MEDICATION (Gabapentin 300 MG) PO SCH (21:00)
[2018-10-03] MEDS ORDERED: SODIUM CHLORIDE 0.9% 250ML 250 ML ONE (21:38)
[2018-10-03] MEDS: GABAPENTIN 300 MG CAP PO SCH (21:54)
[2018-10-03] MEDS: FUROSEMIDE 40 MG TAB PO SCH (21:54)
[2018-10-03] MEDS: METOPROLOL TARTRATE 50 MG TAB PO SCH (21:54)
[2018-10-03] MEDS: INSULIN GLARGINE 100 UNITS/ML VIAL SC SCH (21:54)
[2018-10-04] VITALS (7 sets, daily range): BP systolic 114–149; BP diastolic 58–73
[2018-10-04 00:28] LABS: CREATINE KINASE MB 1.8 ng/mL (0-5.0)
[2018-10-04] MEDS: CLINDAMYCIN 300MG 50 ML IV SCH ×4 (03:00→20:24)
--- NOTE | 2018-10-04 06:59 | NUR ---
report given to oncoming nurse, patient in stable condition.
[2018-10-04] MEDS: INSULIN REGULAR, HUMAN 100 UNIT/1 ML 3ML VIAL SQ SCH ×4 (07:30→21:31)
[2018-10-04] MEDS: FAMOTIDINE 20 MG TAB PO SCH ×2 (08:30→17:11)
[2018-10-04] MEDS ORDERED: INSULIN GLARGINE 100 UNITS/ML VIAL SQ SCH (09:00)
[2018-10-04] MEDS: INSULIN GLARGINE 100 UNITS/ML VIAL SQ SCH ×2 (09:00→17:00)
--- NOTE | 2018-10-04 09:08 | NUR ---
MD PATEL INTO SEE PT, DISCUSSED POC, MRI OF FOOT CHANGED TO STAT PER ORDER Addendum: 10/04/18 at 0937 by Merly Carroll RN MD PATEL DRESSED PT R FOOT
[2018-10-04] MEDS: METOPROLOL TARTRATE 50 MG TAB PO SCH ×2 (09:30→21:32)
[2018-10-04] MEDS: FUROSEMIDE 40 MG TAB PO SCH ×3 (09:30→21:32)
[2018-10-04] MEDS: GABAPENTIN 300 MG CAP PO SCH ×3 (09:30→21:32)
[2018-10-04] MEDS: CLOPIDOGREL BISULFATE 75 MG TAB PO SCH (09:30)
--- NOTE | 2018-10-04 11:43 | Consultation ---
DATE OF CONSULTATION: 10/04/2018 HISTORY OF PRESENT ILLNESS: This is a 73-year-old female, past medical history of hypertension, hyperlipidemia, type 2 diabetes, peripheral neuropathy, uncontrolled and COPD, who was admitted through the emergency room for a worsening infection to the right foot. The patient is well known to me from previous admissions to the hospital as well as being seen as an outpatient. The patient presents to the office routinely for diabetic foot care, however, has not been seen in the office for over a year until last week. The patient had a significant overgrowth of nails including the right second digit, which had an unusual appearance, so a procedure was done to the right second digit for a biopsy. No signs of infection were noted at that time. The patient relates this subsequently forming a blister, which became infected and came to the emergency room for further management and cellulitis. The patient currently denies pain, nausea, vomiting, fever, chills, chest pain, or shortness of breath. PAST MEDICAL HISTORY: Type 2 diabetes, peripheral neuropathy uncontrolled, hypertension, hyperlipidemia, coronary artery disease, COPD. MEDICATIONS: Per the chart. SOCIAL HISTORY: Denies smoking, denies drinking, denies any illicit drug usage. REVIEW OF SYSTEMS: The patient currently denies nausea, vomiting, fever, chills, chest pain, or shortness of breath. PAST SURGICAL HISTORY: Cholecystectomy and multiple cardiac stents. ALLERGIES: VANCOMYCIN. PHYSICAL EXAMINATION: GENERAL: Alert and oriented x3, in no apparent distress. VITAL SIGNS: Today temperature 98.8, respiratory rate 18, pulse 78, blood pressure 132/60, pulse ox 99% on room air. PROBLEM FOCUSED LOWER EXTREMITY PHYSICAL EXAM: VASCULAR: Dorsalis pedis and posterior tibial pulses are faintly palpable. Capillary refill time is approximately 3-5 seconds in all digits. There is erythema, edema, and warmth from the right second digit extending to the foot. The right second digit appears erythematous edematous to the level of the proximal interphalangeal joint. NEUROLOGICAL: Sensation is absent to light touch bilateral. MUSCULOSKELETAL: Contracted digits at the proximal end and distal interphalangeal joints, all digits two through five bilateral. DERMATOLOGICAL: A blister with clear drainage is noted to the lateral aspect of the patient's right nail plate with erythema extending down to the proximal interphalangeal joint. LABORATORY DATA: White blood cell count is 10.2, hemoglobin 9.7, hematocrit 29.3, platelet count 138, neutrophil percentage is 77.8, glucose 254, 323 upon admission. X-RAYS: Two views were taken of the patient's right foot, which reveals soft tissue swelling without visible osseous abnormality. MRI has been ordered. ASSESSMENT: 1. Right toe blister wound cellulitis with possible osteomyelitis. 2. Type 2 diabetes, peripheral neuropathy. PLAN: The patient was seen and evaluated. Discussed condition and x-rays with the patient in detail. The dressing was changed today in Betadine wet-to-dry fashion. Discussed with the patient, we will await results of the MRI, which was changed to stat to be done today to determine if any bone infection is present. Based on the presence of a bone infection, we will discuss possible amputation versus long-term IV antibiotics. We will continue IV antibiotics at this point with clindamycin until wound cultures are received. The Podiatry Service will continue to monitor as an inpatient. PRATEEK Rogers/ANANT /[id number]
[2018-10-04] MEDS: ACETAMINOPHEN 325 MG TAB PO PRN (14:27)
[2018-10-04] MEDS: ENOXAPARIN SOD INJ 40 MG/0.4 ML SYR SC SCH (17:11)
--- NOTE | 2018-10-04 19:21 | Diagnostic Imaging Report ---
TECHNIQUE: Magnetic resonance imaging of the RIGHT foot was performed WITHOUT injected contrast. Motion artifact partially limits sensitivity and specificity of the exam. HISTORY: Second toenail clipped, red, swollen COMPARISON: Right foot radiographs October 03, 2018. DISCUSSION: Bone: Subtle cortical erosion of the tuft of the second distal phalanx with mild adjacent bone marrow edema and corresponding decreased fatty marrow signal. Joints: Severe arthropathy of the first metatarsophalangeal joint. Soft Tissues: Soft tissue defect at the distal aspect of the second toe with regional edema. A superficial 6 mm fluid signal intensity focus adjacent to the lateral aspect of the distal phalanx, may reflect evolving phlegmon or small abscess. IMPRESSION: 1. Osteomyelitis involving the mid to distal aspect of the second distal phalanx. 2. A very small 6 mm adjacent soft tissue focus which may reflect an evolving phlegmon or early abscess. Signed by: Dr. Jf Mccullough D.O., M.M.M. on 10/04/2018 7:18 PM
[2018-10-04] MEDS: INSULIN GLARGINE 100 UNITS/ML VIAL SC SCH (21:31)
[2018-10-05] VITALS (9 sets, daily range): BP systolic 105–133; BP diastolic 56–62
[2018-10-05] MEDS: CLINDAMYCIN 300MG 50 ML IV SCH ×4 (02:32→20:11)
[2018-10-05] MEDS: INSULIN REGULAR, HUMAN 100 UNIT/1 ML 3ML VIAL SQ SCH ×4 (07:30→21:45)
[2018-10-05] MEDS: FAMOTIDINE 20 MG TAB PO SCH ×2 (08:30→16:45)
[2018-10-05] MEDS ORDERED: SODIUM CHLORIDE 0.9% 250ML 250 ML ONE (08:38)
[2018-10-05] MEDS: INSULIN GLARGINE 100 UNITS/ML VIAL SQ SCH ×2 (09:00→16:45)
--- NOTE | 2018-10-05 09:30 | NUR ---
MD PATEL INTO SEE PT, REMOVED R LE DRESSING
[2018-10-05] MEDS: METOPROLOL TARTRATE 50 MG TAB PO SCH ×2 (10:00→21:33)
[2018-10-05] MEDS: CLOPIDOGREL BISULFATE 75 MG TAB PO SCH (10:00)
[2018-10-05] MEDS: FUROSEMIDE 40 MG TAB PO SCH ×3 (10:00→21:33)
[2018-10-05] MEDS: GABAPENTIN 300 MG CAP PO SCH ×3 (10:00→21:33)
--- NOTE | 2018-10-05 10:00 | NUR ---
PT "UPSET BECAUSE DR SUGGESTED DOING TOE AMPUTATION", PT STATES "NEED TO TALK TO MY LEHR LOADER FIRST" AND "THEN MAKE A DECISION"
--- NOTE | 2018-10-05 10:47 | Progress Note ---
DATE: 10/05/2018 SUBJECTIVE: This 73-year-old female, past medical history of hypertension, hyperlipidemia, type 2 diabetes, peripheral neuropathy, uncontrolled. She was seen at bedside today. She relates no new complaints at this time. Denies nausea, vomiting, fever, chills, chest pain, or shortness of breath. No acute issues overnight. OBJECTIVE: VITAL SIGNS: Today, temperature is 99.6, heart rate is 73, respiratory rate 15, blood pressure 119/59, pulse ox 96% on room air. EXTREMITIES: Problem focused lower extremity physical exam, vascular, dorsalis pedis and posterior tibial pulses are faintly palpable. Capillary refill time is approximately 3-5 seconds to the digits. Erythema, edema, and warmth are continued to be present to the right second digit extending to the foot, which has improved since yesterday. The distal right 2nd digit appears erythematous, edematous approximately 1-1/2 times, the size of the digit next to it. NEUROLOGICAL: Sensation is absent to light touch. MUSCULOSKELETAL: Contracted digits at the proximal and distal interphalangeal joints of all digits two through five bilateral. DERMATOLOGICAL: Blister with drainage and deep probing ulceration is noted to the right 2nd digit. LABORATORY DATA: No new labs today. MRI reveals osteomyelitis involving the mid to distal aspect of the 2nd distal phalanx, small superficial involving abscess to the distal aspect of the digit. PLAN: The patient was seen and evaluated. Discussed condition x-rays and MRI report with the patient in detail. Dressing was changed and Betadine wet-to-dry fashion. Discussed with the patient that results of the MRI. My recommendation is to proceed with a partial amputation of the patient's right 2nd digit. The patient has had previous ulcerations to the right 2nd digit and due to the severe deformity, we will continue to have those. The patient relates that she will think about it. Discussed alternative options including 6-8 weeks of IV antibiotics at home or at the nursing facility. The patient relates that she would like to think about it prior to making the incision. We will also order arterial Dopplers at this time to determine patient's vascular status. The Podiatry Service will continue to monitor as inpatient. Antonio Galloway DPM MAF/MODL /[id number]
--- NOTE | 2018-10-05 11:00 | NUR ---
DRESSING WITH BETADINE PLACED PER MD ORDER
--- NOTE | 2018-10-05 12:50 | NUR ---
ARTERIAL DOPPLER IN PROGRESS
--- NOTE | 2018-10-05 16:15 | NUR ---
Visit made by the Spiritual Care Department Pastoral Visitor, Pablito Wade, PV provided pastoral presence, prayer, communion, hospitality, and supportive listening. Pastoral Visitor informed pt/family of the scope of Manager Of Community Relations Services and availability. [employer] T[employer] Spiritual Care Department O: [phone] Pager: [phone] ([phone] number calling from)
[2018-10-05] MEDS: ENOXAPARIN SOD INJ 40 MG/0.4 ML SYR SC SCH (16:45)
[2018-10-05] MEDS: INSULIN GLARGINE 100 UNITS/ML VIAL SC SCH (21:45)
[2018-10-06] VITALS (8 sets, daily range): BP systolic 127–155; BP diastolic 60–68
[2018-10-06] MEDS: CLINDAMYCIN 300MG 50 ML IV SCH ×3 (02:00→15:34)
[2018-10-06] MEDS: ACETAMINOPHEN 325 MG TAB PO PRN (06:44)
--- NOTE | 2018-10-06 07:06 | Progress Note ---
DATE: SUBJECTIVE: The patient is a 73-year-old female with uncontrolled diabetes, comes in with cellulitis of the right foot with MRI showing osteomyelitis and abscess collection. The patient is currently on clindamycin. Options have been given to the patient about amputation of the toe and/or IV antibiotics for 6 weeks. The patient is undecided at this time. The patient wants a consult with the nurse intern and proceed from there. At this time, the patient is asymptomatic. No chest pain. No shortness of breath. OBJECTIVE: VITAL SIGNS: Temperature is 97, pulse of 66, respirations of 19, blood pressure is 139/60, pulse oximetry of 97%. HEENT: Normocephalic and atraumatic. Pupils reactive to light and accommodation. CVS: S1 and S2 normal. Regular rate and rhythm. ABDOMEN: Nontender, nondistended. EXTREMITIES: No clubbing, no cyanosis, no edema. Right foot in dressing. LABORATORY VALUES: White count is 10.28, hemoglobin of 9.7, hematocrit of 29.3. Chemistry showed glucose of 161, ranging from 90s to 218. MICROBIOLOGY: No growth. IMAGING STUDIES: MRI is reported shows osteomyelitis involving the mid to distal aspect of second distal phalanx and a very small 6 mm adjacent soft tissue focus, which may reflect an early abscess. ASSESSMENT: 1. A 73-year-old female with diabetic foot ulcer. 2. Cellulitis of the toe. 3. Hypertension. 4. Hyperlipidemia. PLAN: Continue with IV antibiotics. Again, the patient has been given options of surgery versus IV antibiotics. The patient will think about it. Further recommendation per clinical course. We will continue on her CV medications and also her diabetic medication. The patient also has a history of CAD. Kevin Recinos MD ASJ/MODL /[id number]
[2018-10-06] MEDS: FUROSEMIDE 40 MG TAB PO SCH ×3 (08:10→21:05)
[2018-10-06] MEDS: INSULIN REGULAR, HUMAN 100 UNIT/1 ML 3ML VIAL SQ SCH ×4 (08:31→21:00)
[2018-10-06] MEDS: GABAPENTIN 300 MG CAP PO SCH ×3 (08:31→21:06)
[2018-10-06] MEDS: FAMOTIDINE 20 MG TAB PO SCH ×2 (08:31→17:20)
[2018-10-06] MEDS: INSULIN GLARGINE 100 UNITS/ML VIAL SQ SCH (08:31)
[2018-10-06] MEDS: METOPROLOL TARTRATE 50 MG TAB PO SCH ×2 (08:31→21:06)
--- NOTE | 2018-10-06 11:19 | NUR ---
EDUCATED ABOUT IMM, SIGNED, FILED IN CHART, WITH COPY LEFT WITH FAMILY AT BEDSIDE.
[2018-10-06] MEDS ORDERED: ONDANSETRON HCL 4 MG ORAL DISINTEGRATING TAB PO PRN (11:45)
[2018-10-06] MEDS: CLOPIDOGREL BISULFATE 75 MG TAB PO SCH (13:15)
--- NOTE | 2018-10-06 16:30 | NUR ---
REPORT GIVEN TO RA IN MED SURG 2 AT THIS TIME
--- NOTE | 2018-10-06 16:45 | NUR ---
Received patient via wheelchair. AAOX4 to time, person, place, situation. Respirations even and unlabored. Tele #[phone]. Instructed to use call light for assistance. Voiced understanding.
[2018-10-06] MEDS ORDERED: SODIUM CHLORIDE 0.9% 250ML 250 ML ONE (17:12)
[2018-10-06] MEDS: ENOXAPARIN SOD INJ 40 MG/0.4 ML SYR SC SCH (17:20)
[2018-10-06] MEDS: CEFTRIAXONE SOD 1 GM/NS 50 ML 50 ML IV SCH (17:20)
[2018-10-06] MEDS: DAPTOMYCIN 500mg 10ML 450 MG in SODIUM CHLORIDE 0.9% 100 ML IV SCH (18:00)
--- NOTE | 2018-10-06 19:05 | NUR ---
Resting in bed, son at bedside, side rails upx2, call light within reach, bed alarm on. AAOX4 to time, person, place, situation. Respirations even and unlabored. Addendum: 10/06/18 at 1923 by JEANMARIE ABRAMS RN ERROR
--- NOTE | 2018-10-06 19:10 | NUR ---
Sitting upright in bed, side rails upx2, call light within reach. No s/s of acute distress noted
--- NOTE | 2018-10-06 19:39 | Consultation ---
DATE OF CONSULTATION: REASON FOR CONSULTATION: Osteomyelitis of the right foot. Thank you so much for asking me to see this patient. HISTORY OF PRESENT ILLNESS: This patient is very pleasant 73-year-old white female with history of diabetes mellitus, history of obesity, history of neuropathy, history of chronic obstructive pulmonary disease, hypertension, coronary artery disease. The patient has been having problem with her right foot for a couple of weeks. Apparently, she was sent for a biopsy of her foot, there was concern about fungal infection. She is having pain, redness, and swelling, and then discharge from the foot. She has problem with her feet apparently for some time from neuropathy. She had overgrowth of her nail including the right 2nd digit. The patient underwent debridement, but few days later started a blister, and had redness and swelling in the toe. She took oral antibiotic without any improvement, apparently that progressed. She came here, she was started on IV antibiotic with MRI showing she has osteomyelitis. I am asked to see her. She is currently up in a chair, comfortable. No complaints. PAST MEDICAL HISTORY: Hypertension, hyperlipidemia, obesity, coronary artery disease, chronic obstructive pulmonary disease, diabetes mellitus, neuropathy, insomnia, and nephropathy. PAST SURGICAL HISTORY: As above. ALLERGIES: NKA. SOCIAL HISTORY: There is no smoking, drug abuse, or alcohol abuse. FAMILY HISTORY: Otherwise, diabetes mellitus. SOCIAL HISTORY: She used to smoke in the past, but not recently. REVIEW OF SYSTEMS: HEENT: There is no headache, visual changes, or hearing changes. GI: There is no nausea, no vomiting, no diarrhea. CARDIAC: There is no arrhythmia. NEURO: No seizure activities. SKIN: There is no other rash. A 14-point system reviewed with the patient, all negative. LABORATORY DATA: Her laboratory data reviewed. MRI also reviewed. Her consultation with the networks software consultant reviewed. The patient had a reaction with vancomycin. Her white count 10.28, hemoglobin 9.7. Her sodium 135, potassium 4.0, creatinine 0.94. Blood cultures were negative. PHYSICAL EXAMINATION: GENERAL: She is currently alert, oriented, does not seem to be in acute distress. VITAL SIGNS: Currently, afebrile. HEENT: Normocephalic, not icteric. NECK: Supple. CHEST: Clear. HEART: S1, S2. No S3, S4, or murmur. ABDOMEN: Soft, obese. No tenderness. No hepatosplenomegaly. EXTREMITIES: No edema. She had the right foot. There is some erythema, edema of the 2nd digit. The distal pulse was weak, but present sensation was diminished. IMAGING: An MRI showed osteomyelitis of the mid to distal aspect of the 2nd distal phalanx with a very small soft tissue swelling and edema, maybe abscess. IMPRESSION: 1. Osteomyelitis, small abscess. Recommend I and D except for culture and sensitivity. 2. Need cardiac clearance. Her solder making laborer is in [facility]. She would like to go home and then do the procedure. 3. Neuropathy. 4. Diabetes mellitus. 5. From Infectious Disease point of view, I would recommend to get a PICC line. We will see if we can do IV antibiotic as outpatient. We will start on daptomycin. We will need biweekly CBC, biweekly Chem panel, diabetic control. See her solder making laborer as an outpatient for clearance and then we will proceed with debridement and may be getting culture and sensitivity. 6. I would recommend to start the patient on daptomycin now and the cefepime. I would also add Rocephin at 2 g q.24, whom we get the sensitivity. So to summarize, osteomyelitis, diabetes, neuropathy, obesity, possibility of coronary artery disease. We will get a PICC line daptomycin and Rocephin. We will arrange outpatient IV antibiotic. MD MISTY Honeycutt/ANANT /[id number]
[2018-10-06] MEDS: INSULIN GLARGINE 100 UNITS/ML VIAL SC SCH (21:00)
--- NOTE | 2018-10-06 23:29 | Diagnostic Imaging Report ---
EXAMINATION: CHEST XRAY LINE PLACEMENT INDICATION: PICC placement COMPARISON: Chest radiograph 10/03/2018 FINDINGS: AP view TUBES and LINES: Interval placement of a left upper extremity PICC with tip in the cavoatrial junction. LUNGS: Lungs are well inflated. Lungs are clear. There is no evidence of pneumonia or pulmonary edema. PLEURA: No pleural effusion or pneumothorax. HEART AND MEDIASTINUM: Mild cardiomegaly. Post surgical changes of coronary artery bypass graft. BONES AND SOFT TISSUES: No acute osseous lesion. Soft tissues are unremarkable. Sternotomy wires intact. UPPER ABDOMEN: No free air under the diaphragm. IMPRESSION: Interval placement of left upper extremity PICC with tip in the cavoatrial junction. No acute thoracic abnormality. Signed by: Rayray Qureshi DO on 10/06/2018 11:26 PM
[2018-10-07] VITALS (8 sets, daily range): BP systolic 118–135; BP diastolic 58–75
[2018-10-07] MEDS: ACETAMINOPHEN 325 MG TAB PO PRN (06:21)
--- NOTE | 2018-10-07 07:05 | NUR ---
pt alert resp even and unlabored at this time, sitting at bedside, no distress noted, call light in reach
--- NOTE | 2018-10-07 07:26 | Progress Note ---
DATE: SUBJECTIVE: This is a 73-year-old female, who comes in with osteomyelitis of the foot. The patient is reluctant for surgery, opted for IV antibiotic. A PICC line was inserted yesterday and the patient has been started on daptomycin and ceftriaxone by Dr. Vanegas, currently asymptomatic. No chest pain. No shortness of breath. No nausea, vomiting, or diarrhea. No constipation. No rectal bleed. No claudication pain. OBJECTIVE: VITAL SIGNS: Temperature is 97.4, pulse of 72, respirations of 18, blood pressure is 121/64, pulse oximetry of 94%. HEENT: Normocephalic, atraumatic. Pupils are reactive to light and accommodation. CVS: S1 and S2 normal. Regular rate and rhythm. ABDOMEN: Nontender and nondistended. EXTREMITIES: In bandage. LABORATORY VALUES: Within normal limit. Hemoglobin of 9.7, hematocrit within normal limits, which is 29.3. Chemistries: Sugars have been running in the 95 to 218. Coags are normal. Microbiology, no growth in blood cultures. ASSESSMENT: 1. A 73-year-old female with uncontrolled diabetes mellitus. 2. Osteomyelitis with small abscess. 3. Coronary artery disease. Continue CV medications. 4. Hypertension. Continue with CV medication. PLAN: The patient has a PICC line already and daptomycin and cefepime are started. The patient can be discharged for outpatient IV antibiotic when Case Management arranges for IV antibiotics at this time. Disposition, home as soon as IV antibiotics has arranged. Further recommendation per clinical course. The patient has also been given option for amputation of the toe and this has been discussed in detail with the patient by Dr. Galloway and by me. MD MAYI GraffJ/MODL /[id number]
[2018-10-07] MEDS: GABAPENTIN 300 MG CAP PO SCH ×3 (09:18→20:51)
[2018-10-07] MEDS: CLOPIDOGREL BISULFATE 75 MG TAB PO SCH (09:18)
[2018-10-07] MEDS: FUROSEMIDE 40 MG TAB PO SCH ×3 (09:18→20:50)
[2018-10-07] MEDS: FAMOTIDINE 20 MG TAB PO SCH ×2 (09:18→17:00)
[2018-10-07] MEDS: METOPROLOL TARTRATE 50 MG TAB PO SCH ×2 (09:20→20:51)
[2018-10-07] MEDS: INSULIN GLARGINE 100 UNITS/ML VIAL SQ SCH (10:42)
[2018-10-07] MEDS: INSULIN REGULAR, HUMAN 100 UNIT/1 ML 3ML VIAL SQ SCH ×4 (10:42→20:53)
--- NOTE | 2018-10-07 11:43 | NUR ---
Spoke to Aicha in Dr. Vanegas's office. She states they are still pending insurance authorization. States she should get it today or early tomorrow.
--- NOTE | 2018-10-07 11:53 | Progress Note ---
DATE: 10/07/2018 SUBJECTIVE: This is a 73-year-old female with past medical history of hypertension, hyperlipidemia, type 2 diabetes, peripheral neuropathy, uncontrolled, who was seen at bedside today. No new pedal complaints at this time. Denies nausea, vomiting, fever, chills, chest pain, or shortness of breath. No acute issues overnight. OBJECTIVE: VITAL SIGNS: Today temperature is 96.6, heart rate 76, respiratory rate 20, blood pressure is 118/75, pulse ox 98% on room air. EXTREMITIES: Problem focused lower extremity physical exam, vascular, dorsalis pedis and posterior tibial pulses are faintly palpable. Capillary refill time is approximately 3 to 5 seconds in all digits. Erythema edema and warmth are improved to the patient's right 2nd digit. Distal right 2nd digit continues to remain chronically edematous. NEUROLOGIC: Sensation is absent to light touch. MUSCULOSKELETAL: Contracted digits at the proximal and distal interphalangeal joints of digits 2 through 5. DERMATOLOGIC: Blister with drainage and deep probing ulceration to the right 2nd digit. LABORATORY DATA: No new labs today. ASSESSMENT: 1. Right 2nd digit osteomyelitis. 2. Type 2 diabetes. 3. Peripheral neuropathy, uncontrolled. PLAN: The patient was seen and evaluated. Discussed condition, x-rays, and MRI report with the patient in detail. Sterile Betadine wet-to-dry dressing change was performed to the patient's right 2nd digit. At this time continue to recommend a partial amputation of the patient's right 2nd digit. The patient, however, is concerned with her submarine element coordinator because she recently had a catheterization with stenting procedure and is on blood thinners. She would like to speak with her submarine element coordinator prior to having any type of surgical intervention. I discussed with the patient that the procedure can be done under local anesthesia and minimal bleeding should be noted even with blood thinners and a partial amputation of the digit. The patient, however, would continue to relate she would like to be cleared by her submarine element coordinator, which is understandable. This was discussed with the primary care team. Infectious Disease has been consulted. A PICC line has been placed. The patient is stable for discharge from Podiatry standpoint with close followup with Cardiology as well as with Podiatry. Depending on Cardiology's approval, we will plan to possibly do a partial right 2nd digit amputation as an outpatient. PRATEEK Rogers /[id number]
--- NOTE | 2018-10-07 15:28 | NUR ---
TUCKER called Dr. Vanegas's office to follow up on status of abx. Spoke with Aicha who states they are still pending auth at this time
[2018-10-07] MEDS: CEFTRIAXONE SOD 1 GM/NS 50 ML 50 ML IV SCH (17:00)
[2018-10-07] MEDS: DAPTOMYCIN 500mg 10ML 450 MG in SODIUM CHLORIDE 0.9% 100 ML IV SCH (17:02)
[2018-10-07] MEDS: ENOXAPARIN SOD INJ 40 MG/0.4 ML SYR SC SCH (17:02)
--- NOTE | 2018-10-07 18:45 | NUR ---
Received bedside report from day shift RN. The patient is sitting up on the bed, not in distress. Call light within reach, bed height low, side rails up x2.
--- NOTE | 2018-10-07 19:39 | NUR ---
report given to oncoming nurse for continued care, pt stable.
[2018-10-07] MEDS: INSULIN GLARGINE 100 UNITS/ML VIAL SC SCH (20:52)
[2018-10-08 00:05] VITALS: BP 121/59
[2018-10-08 04:00] VITALS: BP 127/60
--- NOTE | 2018-10-08 06:26 | NUR ---
Dr. Recinos stated the patient is to be discharged to home once case management setup home health for antibiotic IV.
--- NOTE | 2018-10-08 06:42 | Progress Note ---
DATE: SUBJECTIVE: The patient is in [facility]. Currently, the patient is awaiting social service consult and case management for discharge home with IV antibiotics. MEDICATIONS: The patient is currently on insulin glargine 50, metoprolol 50, gabapentin 300 mg 3 times a day, furosemide t.i.d., daptomycin q.24 hours, Lovenox 40 mg, Rocephin and insulin glargine 20 units at nighttime. No chest pain. No shortness of breath. No nausea, vomiting, or diarrhea. The patient is not ambulatory. OBJECTIVE: VITAL SIGNS: Temperature is 97.9, pulse of 76, respirations of 18, blood pressure is 127/60, and pulse oximetry of 92%. HEENT: Normocephalic and atraumatic. Pupils are reactive to light and accommodation. CVS: S1 and S2 normal. Regular rate and rhythm. ABDOMEN: Nontender and nondistended. EXTREMITIES: No clubbing, no cyanosis, no edema. The patient has right leg line of demarcation below the line of calf, tenderness present in the foot. LABORATORY VALUES: None done. Chemistries blood sugars are running in the 195s to 160s. Microbiology, no growth. IMAGING STUDIES: MRI is noted with osteomyelitis, status post PICC line placement on the . ASSESSMENT AND PLAN: Osteomyelitis of the right foot with ulcerative toe, diabetic foot ulcer. The patient is currently on daptomycin and Rocephin. Continue with plan, PICC line inserted. The patient to be discharged when case management has arranged for IV antibiotics as an outpatient. Comorbidities; diabetes mellitus, continue on insulin. CAD, continue on current medication. Hypertension, continue current medication. Further recommendation per clinical course. We will continue to monitor the patient. The patient is staying here tonight. We will go ahead and do her laboratory values tomorrow. Kevin Recinos MD ASJ/MODL /[id number]
[2018-10-08] MEDS: INSULIN REGULAR, HUMAN 100 UNIT/1 ML 3ML VIAL SQ SCH ×2 (07:30→11:30)
[2018-10-08 08:03] VITALS: BP 133/68
[2018-10-08] MEDS: FUROSEMIDE 40 MG TAB PO SCH (08:40)
[2018-10-08] MEDS: FAMOTIDINE 20 MG TAB PO SCH (08:40)
[2018-10-08] MEDS: METOPROLOL TARTRATE 50 MG TAB PO SCH (08:41)
[2018-10-08] MEDS: CLOPIDOGREL BISULFATE 75 MG TAB PO SCH (08:41)
[2018-10-08] MEDS: GABAPENTIN 300 MG CAP PO SCH (08:41)
[2018-10-08 08:42] VITALS: BP 133/68
[2018-10-08] MEDS: INSULIN GLARGINE 100 UNITS/ML VIAL SQ SCH (09:00)
--- NOTE | 2018-10-08 09:17 | NUR ---
Spoke to Aicha at Dr. Vanegas's office. She states IV abx has been approved. She asked that pt be given her dose if abx today and she can come into the office tomorrow at 10am. [facility] Infect[facility] [address] [place], [place] [address]y [address] [place] [address] Pt can come in tomorrow at 10am. Appointment information printed and given to pt.
--- NOTE | 2018-10-08 09:48 | Progress Note ---
DATE: 10/08/2018 SUBJECTIVE: This is a 73-year-old female with past medical history of hypertension, hyperlipidemia, type 2 diabetes, and peripheral neuropathy, uncontrolled, who was seen at the bedside today. No new pedal complaints at this time. Denies nausea, vomiting, fever, chills, chest pain, or shortness of breath. No acute issues overnight. OBJECTIVE: VITAL SIGNS: Today, temperature 98.4, heart rate 73, respiratory rate 22, blood pressure 125/75, and pulse ox 99% on room air. PROBLEM FOCUSED LOWER EXTREMITY PHYSICAL EXAM: Vascular, dorsalis pedis and posterior tibial pulses are faintly palpable. Capillary refill time is 3 to 5 seconds to all digits. Erythema, edema, and warmth are improved to the patient's right 2nd digit. However, chronic edema is still noted. NEUROLOGICAL: Sensation is absent to light touch. MUSCULOSKELETAL: Digital contractures 2 through 5 bilateral. DERMATOLOGICAL: A dried blister with a deep probing ulcerations noted to the patient's right 2nd digit. LABORATORY DATA: No new labs today. ASSESSMENT: 1. Right 2nd digit osteomyelitis. 2. Type 2 diabetes with peripheral neuropathy, uncontrolled. PLAN: The patient was seen and evaluated. Discussed condition, x-rays, and MRI report with the patient in detail. Again, a Betadine wet-to-dry dressing change was performed. Continue to recommend a partial amputation of the patient's right 2nd digit. The patient is adamant about seeing her previous franchise manager to be cleared for surgery. Even though it was recommended to do it under local anesthesia, and minimal bleeding would be noted while patient is on anticoagulation. The patient was seen by Dr. Vanegas and had a PICC line placed. The patient is stable to be discharged from the Podiatry team at this point to be evaluated by her franchise manager. We would recommend doing a right 2nd digit amputation as an outpatient and having a PICC line until wound has healed. The Podiatry Service will continue to monitor while in-house. PRATEEK Rogers/ANANT /[id number]
--- NOTE | 2018-10-08 10:20 | NUR ---
Received home health order. Spoke to pt at bedside. She states she has never used a home health company before. She's fine with using any company that takes her insurance. Choice letter signed for [facility], [facility], and [facility]. Signed copy in chart. Copy to pt. CM explained to pt that home health typically does not come out daily. Pt acknowledged. 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 CM left business card with pt for any questions/concerns. Referral was faxed to [facility]. Ximena Hawkins with [facility] with notified of referral and pt discharging today.
[2018-10-08] MEDS: CEFTRIAXONE SOD 1 GM/NS 50 ML 50 ML IV SCH (10:41)
--- NOTE | 2018-10-08 10:59 | NUR ---
Per Ximena with [facility], they are able to admit pt. Home health will be covered 100% by insurance. They will reach out to pt to schedule time to admit. [facility]
--- NOTE | 2018-10-08 11:22 | NUR ---
EDUCATED ABOUT IMM SIGNED FILED IN CHART AND LEFT COPY WITH PT BEDSIDE WITH CARD FOR ANY FURTHER QUESTIONS
[2018-10-08 11:37] VITALS: BP 164/75
[2018-10-08] MEDS: DAPTOMYCIN 500mg 10ML 450 MG in SODIUM CHLORIDE 0.9% 100 ML IV SCH (13:00)
--- NOTE | 2018-10-08 15:00 | NUR ---
Taken via wheelchair by PCT to personal car. AAOX4 to time, person, place, situation. Respirations even and unlabored. Left PICC line dressing clean, dry, and intact. Dressing to right foot clean, dry, and intact. Denies pain. Discharge instructions and all personal belongings taken with patient. No rx available at this time.
== END 2018-10-08 15:00 | disposition home health service (06) | DRG 872 ==
LOC: ER 10:53 → ERHOLD 12:38 → MED/SURG 15:00 → MED/SURG2 10-06 16:44
PROVIDERS: ADMIT Family Medicine; ATTEND Family Medicine
PROC: 02HV33Z Insertion of Infusion Device into Superior Vena Cava, Percutaneous Approach (ICD-10-PCS; principal; 2018-10-06)
DX: A41.9 Sepsis, unspecified organism (principal); M86.8X7 Other osteomyelitis, ankle and foot; E11.69 Type 2 diabetes mellitus with other specified complication; E11.621 Type 2 diabetes mellitus with foot ulcer; I10 Essential (primary) hypertension; J44.9 Chronic obstructive pulmonary disease, unspecified; E11.42 Type 2 diabetes mellitus with diabetic polyneuropathy; Z79.4 Long term (current) use of insulin; E11.65 Type 2 diabetes mellitus with hyperglycemia; L03.031 Cellulitis of right toe; D64.9 Anemia, unspecified; E66.9 Obesity, unspecified; Z68.38 Body mass index [BMI] 38.0-38.9, adult; I25.10 Atherosclerotic heart disease of native coronary artery without angina pectoris
CPT/HCPCS: 36415; 36569; 71045; 80053; 82550; 82553; 82948; 83540; 83605; 83735; 84466; 84484; 85025; 85610; 85730; 87040; 93925; 93971; 99284; J0696; J1650; J1815; J1817; J2405; J3370; J7040; J7050

== ENCOUNTER → 2018-10-31 | Day surgery (SDC) | payer MEDICARE, OTHER ==
[2018-10-28 11:37] LABS: BASOPHILS % 0.4 % (0.0-1.0); EOSINOPHILS # (AUTO) 0.2 (0.0-0.4); EOSINOPHILS % 2.1 % (0.0-6.0); HEMATOCRIT 31.7 % (34.2-44.1); HEMOGLOBIN 10.4 g/dL (12.0-16.0); LYMPHOCYTES # (AUTO) 1.5 (1.0-3.2); LYMPHOCYTES % 16.3 % (18.0-39.1); MEAN CORPUSCULAR HEMOGLOBIN 30.9 pg (28-32); MEAN CORPUSCULAR HGB CONC 32.8 g/dL (31-35); MEAN CORPUSCULAR VOLUME 94.1 fL (81-99); MONOCYTES # (AUTO) 0.6 (0.2-0.8); NEUTROPHILS # (AUTO) 6.8 (2.1-6.9); NEUTROPHILS % 73.5 % (38.7-80.0); PLATELET COUNT 155 x10e3/uL (140-360); RED BLOOD COUNT 3.37 x10e6/uL (3.6-5.1); RED CELL DISTRIBUTION WIDTH 13.7 % (11.7-14.4)
[2018-10-28 12:08] LABS: ANION GAP 15.2 mmol/L (8-16); BLOOD UREA NITROGEN 19 mg/dL (7-26); BUN/CREATININE RATIO 23 (6-25); CALCIUM 9.9 mg/dL (8.4-10.2); CARBON DIOXIDE 26 mmol/L (22-29); CHLORIDE 103 mmol/L (98-107); CREATININE, SERUM 0.83 mg/dL (0.57-1.11); EST GLOMERULAR FILTRATION RATE > 60 ML/MIN (60-); GLUCOSE 92 mg/dL (74-118); POTASSIUM 3.2 mmol/L (3.5-5.1); SODIUM 141 mmol/L (136-145)
--- NOTE | 2018-10-28 12:27 | Diagnostic Imaging Report ---
Chest, 2 views, 10/28/2018. History: Preop, foot surgery. Comparison: 10/06/2018. Findings: The cardiomediastinal silhouette and pulmonary vasculature are within normal limits. The lungs are clear without evidence of consolidation or pleural effusion. Left upper extremity PICC, median sternotomy wires, and CABG clips are again noted. There are no acute osseous or soft tissue abnormalities. Impression: No acute cardiopulmonary abnormality. Signed by: Zach Shaver on 10/28/2018 12:23 PM
[~2018-10-31] MED LIST changes: +ACETAMINOPHEN 1000 MG/100 ML 100 ML IV ONE; +BACITRACIN 50,000 UNIT VIAL ONE; +BUPIVACAINE HCL 0.5% INJ 30 ML VIAL INJ ONE; +CEFAZOLIN SOD 1 GM/NS 50ML 50 ML IV ONE; +DEXAMETHASONE SOD PHOS INJ 4 MG/ML VIAL ONE; +INSULIN REGULAR, HUMAN 100 UNIT/1 ML 3ML VIAL ONE; +LIDOCAINE HCL 2% LOCAL INJ 5 ML SDV VIAL INJ ONE; +ONDANSETRON HCL INJ 2MG/ML 2ML 2 MG/ML VIAL ONE; +PROPOFOL IV EMULSION 10 MG/ML 20 ML VIAL ONE; +SEVOFLURANE INHAL SOLN 250 ML PEN BTL ONE
--- OUTSIDE RECORDS SUMMARY | 2018-10-31 05:57 | XMS REPORT | Continuity of Care Document ---
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 Role Phone [facility] Information Cotton Unavailable Unavailable Problems Problem Status Onset Date Classification Date Reported Comments Source Cellulitis Active Problem 01/13/2018 [facility] Hyperglycemia Active Problem 01/13/2018 [facility] Medications Medication Details Route Status Patient Instructions Ordering Provider Order Date Source Acetaminophen With Codeine (Tylenol With Codeine #3 Tablet) 1 Each Tablet Every 4 Hours for Pain Active Holly 03/31/2017 [facility] Amlodipine Besylate 10 Mg Tablet, 10 Mg Oral Daily Active 03/31/2017 [facility] Insulin Lisp Protam/Lisp Human (Humalog 75/25 10ML Vial) 100 Units/Ml Ml, 60 Units Intraven Before Breakfast Active 03/31/2017 [facility] Lisinopril/Hydrochlorothiazide (Lisinopril-Hctz 20/12.5 Tab) 1 Each Tablet, Oral Daily Active 03/31/2017 [facility] Pantoprazole Sodium 40 Mg Tablet.dr, 40 Mg Oral Daily Active 03/31/2017 [facility] Levothyroxine Sodium (Synthroid) 200 Mcg Tablet, 200 Mcg Oral Daily Active 11/29/2011 [facility] Meclizine Hcl (Antivert) 25 Mg Tablet, 25 Mg Oral Daily Active 11/29/2011 [facility] Sertraline Hcl (Zoloft) 50 Mg Tablet, 50 Mg Oral Rt Daily Active 11/29/2011 [facility] Insulin Glargine,Hum.rec.anlog (Lantus) 100 Unit/1 Ml Cartridge, 56 Unit Sub-Q Rt Daily Active 10/24/2011 [facility] Insulin Lispro (Humalog) 100 Unit/1 Ml Insuln.pen, 18 Unit Sub-Q Active 10/24/2011 [facility] Gabapentin 100 Mg Capsule, 100 Mg Oral Rt Bid Active 10/23/2011 [facility] Levothyroxine Sodium (Synthroid) 175 Mcg Tablet, 175 Mcg Oral Rt Daily Active 10/23/2011 [facility] Lisinopril (Prinivil) 20 Mg Tablet, 20 Mg Oral Rt Bid Active 10/23/2011 [facility] Simvastatin (Zocor) 20 Mg Tablet, 20 Mg Oral Rt Daily Active 10/23/2011 [facility] Amitriptyline Hcl 25 Mg Tablet Daily Active [facility] Clopidogrel Bisulfate (Plavix) 75 Mg Tablet Daily Active [facility] Furosemide 40 Mg Tablet Three Times A Day Active [facility] Gabapentin 600 Mg Tablet Three Times A Day Active [facility] Insulin Glargine (Lantus) 100 Units/Ml Ml Bedtime Active [facility] Insulin Lisp Protam/Lisp Human (Humalog 75/25 10ML Vial) 100 Units/Ml Ml Before Meals Active [facility] Levofloxacin (Levaquin) 500 Mg Tablet Daily Active [facility] Metoprolol Tartrate (Lopressor) 25 Mg Tab Twice A Day Active [facility] Montelukast Sodium 10 Mg Tablet Daily Active [facility] Tramadol Hcl (Ultram) 50 Mg Tablet Every 6 Hours as needed Active [facility] Allergies, Adverse Reactions, Alerts No Known Medication Allergies Immunizations No Data Provided for This Section Results Order Name Results Value Reference Range Date Interpretation Comments Source Capillary blood glucose measurement by glucometer (mass/volume) 221 70 - 120 01/12/2018 [facility] Serum or plasma trough vancomycin level at trough (mass/volume) 13.6 5.0 - 10.0 01/11/2018 [facility] Blood leukocytes automated count (number/volume) 9.26 4.8 - 10.8 01/09/2018 [facility] Blood erythrocytes automated count (number/volume) 3.37 3.6 - 5.1 01/09/2018 [facility] Blood hemoglobin measurement (moles/volume) 10.3 12.0 - 16.0 01/09/2018 [facility] Automated blood hematocrit (volume fraction) 31.6 34.2 - 44.1 01/09/2018 [facility] Automated erythrocyte mean corpuscular volume 93.8 81 - 99 01/09/2018 [facility] Automated erythrocyte mean corpuscular hemoglobin (mass per erythrocyte) 30.6 28 - 32 01/09/2018 [facility] Automated erythrocyte mean corpuscular hemoglobin concentration measurement (mass/volume) 32.6 31 - 35 01/09/2018 [facility] RDW BldCo-Rto 13.9 11.7 - 14.4 01/09/2018 [facility] Automated blood platelet count (count/volume) 164 140 - 360 01/09/2018 [facility] Automated blood segmented neutrophil count as percentage of total leukocytes 72.7 38.7 - 80.0 01/09/2018 [facility] Automated blood lymphocyte count as percentage ot total leukocytes 15.7 18.0 - 39.1 01/09/2018 [facility] Automated blood monocyte count as percentage of total leukocytes 9.2 4.4 - 11.3 01/09/2018 [facility] Automated blood eosinophil count as percentage of total leukocytes 1.6 0.0 - 6.0 01/09/2018 [facility] Automated blood basophil count as percentage of total leukocytes 0.4 0.0 - 1.0 01/09/2018 [facility] IM GRANULOCYTES % 0.4 0.0 - 1.0 01/09/2018 [facility] Automated blood neutrophil count 6.7 2.1 - 6.9 01/09/2018 [facility] Blood lymphocytes count (number/volume) 1.5 1.0 - 3.2 01/09/2018 [facility] Blood monocytes automated count (number/volume) 0.9 0.2 - 0.8 01/09/2018 [facility] Automated blood eosinophil count 0.2 0.0 - 0.4 01/09/2018 [facility] Automated blood basophil count (count/volume) 0.0 0.0 - 0.1 01/09/2018 [facility] Absolute Immature Granulocyte (auto 0.04 0 - 0.1 01/09/2018 [facility] Fibrin D-dimer DDU measurement in platelet poor plasma (mass/volume) 0.70 0.00 - 0.45 01/09/2018 [facility] Serum or plasma sodium measurement (moles/volume) 141 136 - 145 01/09/2018 [facility] Serum or plasma potassium measurement (moles/volume) 3.7 3.5 - 5.1 01/09/2018 [facility] Serum or plasma chloride measurement (moles/volume) 99 98 - 107 01/09/2018 [facility] Serum or plasma carbon dioxide, total measurement (moles/volume) 31 22 - 29 01/09/2018 [facility] Serum or plasma anion gap 14.7 8 - 16 01/09/2018 [facility] Serum or plasma urea nitrogen measurement (mass/volume) 26 7 - 26 01/09/2018 [facility] Serum or plasma creatinine measurement (mass/volume) 1.11 0.57 - 1.11 01/09/2018 [facility] Serum or plasma urea nitrogen/creatinine mass ratio 23 6 - 25 01/09/2018 [facility] Estimated glomerular filtration rate (GFR) determination 48 60 01/09/2018 [facility] Glucose measurement 309 74 - 118 01/09/2018 [facility] Serum or plasma calcium measurement (mass/volume) 10.0 8.4 - 10.2 01/09/2018 [facility] Serum or plasma total bilirubin measurement (mass/volume) 0.7 0.2 - 1.2 01/09/2018 [facility] Aspartate Amino Transf (AST/SGOT) 28 5 - 34 01/09/2018 [facility] Serum or plasma alanine aminotransferase measurement (enzymatic activity/volume) 25 0 - 55 01/09/2018 [facility] Serum or plasma protein measurement (mass/volume) 7.7 6.5 - 8.1 01/09/2018 [facility] Serum or plasma albumin measurement (mass/volume) 3.9 3.5 - 5.0 01/09/2018 [facility] Plasma globulin measurement (mass/volume) 3.8 2.3 - 3.5 01/09/2018 [facility] Serum or plasma albumin/globulin mass ratio 1.0 0.8 - 2.0 01/09/2018 [facility] Serum or plasma alkaline phosphatase measurement (enzymatic activity/volume) 127 40 - 150 01/09/2018 [facility] BNP Bld-mCnc 113.6 0 - 100 01/09/2018 [facility] Blood culture NO GROWTH AFTER 72 HOURS 01/09/2018 [facility] Prothrombin time (PT) in platelet poor plasma by coagulation assay 12.8 11.9 - 14.5 03/31/2017 [facility] INR in Platelet poor plasma by Coagulation assay 1.04 03/31/2017 [facility] Activated partial thromboplastin time (aPTT) in platelet poor plasma bycoagulation assay 26.9 23.8 - 35.5 03/31/2017 [facility] Urine color determination YELLOW YELLOW 03/31/2017 [facility] Urine clarity SL CLOUDY CLEAR 03/31/2017 [facility] Specific gravity of Urine by Test strip 1.015 1.010 - 1.025 03/31/2017 [facility] Urine pH measurement by automated test strip 5 5 - 7 03/31/2017 [facility] Urine leukocyte esterase detection by dipstick NEGATIVE NEGATIVE 03/31/2017 [facility] Urine nitrite detection NEGATIVE NEGATIVE 03/31/2017 [facility] Urine protein measurement by test strip (mass/volume) NEGATIVE NEGATIVE 03/31/2017 [facility] Urine glucose detection 3+ NEGATIVE 03/31/2017 [facility] Urine ketones detection by automated test strip NEGATIVE NEGATIVE 03/31/2017 [facility] Urine urobilinogen measurement by test strip (mass/volume) 0.2 0.2 - 1 03/31/2017 [facility] Urine total bilirubin measurement (mass/volume) NEGATIVE NEGATIVE 03/31/2017 [facility] Urine erythrocytes detection NEGATIVE NEGATIVE 03/31/2017 [facility] Automated urine sediment leukocyte count by microscopy (number/high power field) NONE 0 - 5 03/31/2017 [facility] Erythrocytes detection in urine sediment by light microscopy NONE 0 - 5 03/31/2017 [facility] Bacteria detection in urine sediment by light microscopy FEW NONE 03/31/2017 [facility] Epithelial cells detection in urine sediment by light microscopy MODERATE NONE 03/31/2017 [facility] Pathology Reports No Data Provided for [...] DC Date Status Source Departed Emergency Room [id number] DEREK WELLS MD 03/31/2017 03/31/2017 [facility] Discharged Inpatient [id number] VIELKA GRIMES MD 01/09/2018 01/13/2018 [facility] Procedures Procedure Code Date Perfomer Comments Source EMERGENCY DEPT VISIT [id number] 03/31/2017 [facility] MRI jnt of lwr extre w/o dye [id number] 03/31/2017 [facility] Magnetic resonance imaging of pelvis without contrast [id number] 03/31/2017 [facility] Assessment and Plan No Data Provided for This Section Plan of Care Plan of Care Date Source Discharge Date 01/13/18 10:24am Disposition HOME, SELF-CARE Instructions/Education Provided Cellulitis Foot Care for Diabetics Hyperglycemia Prescriptions See Medication Section Referrals VIELKA GRIMES MD (Internal Medicine) Order Date: 7-10 Days Entered Date: 01/13/2018 6:43am Address: [address] [place] [address] [phone] Additional Instructions/Education DIABETIC DIET AND FOLLOW UP WITH PCP IN 1 TO 2 WEEKS 01/13/2018 [facility] Social History Social History Date Source Social History Problem Response Recorded Date/Time Onset Date Status Hx Psychiatric Problems Yes 10/24/2011 3:50am Not Applicable Not Applicable Hx Eating Disorder No 10/24/2011 3:50am Not Applicable Not Applicable Hx Substance Use Disorder No 10/24/2011 3:50am Not Applicable Not Applicable Hx Depression Yes 10/24/2011 3:50am Not Applicable Not Applicable 01/13/2018 [facility] Family History No Data Provided for This Section Advance Directives Order Name Results Value Date Source Advance Directives Advance Directives Directive Response Recorded Date/Time Does the patient have an advance directive? No 01/09/18 8:55pm If yes, is advance directive on file with [facility]? No 01/09/18 8:55pm If not on file with [facility] will patient provide a copy? No 01/09/18 8:55pm Do you have a Directive to Physician? No 01/09/18 6:58pm Do you have a Medical Power of Liquor [employer]? No 01/09/18 6:58pm Do you have an [...] rights and responsibilities? Yes 01/09/18 6:58pm 01/13/2018 [facility] Functional Status No Data Provided for This Section
[2018-10-31 09:30] VITALS: BP 184/84
--- NOTE | 2018-10-31 15:18 | Operative Report ---
DATE OF PROCEDURE: 10/31/2018 SURGEON: Antonio Galloway DPM PREOPERATIVE DIAGNOSIS: Right second digit osteomyelitis. POSTOPERATIVE DIAGNOSIS: Right second digit osteomyelitis. PLANNED PROCEDURE: Right partial amputation of the second digit. ASSISTANT ADMINISTRATOR: None. ANESTHESIA: General with a postoperative block consisting of 5 mL of 0.5% Marcaine plain. HEMOSTASIS: Esmarch tourniquet applied for approximately 10 minutes. MATERIALS: 4-0 nylon. ESTIMATED BLOOD LOSS: Less than 10 mL. PATHOLOGY: Distal amputation site sent for gross specimen. PROCEDURE NOTE: The patient was seen in the preoperative waiting room. The correct procedure and site were identified. The patient was brought to the operating room and placed on the operating table in the supine position. General anesthesia was initiated. At this time, the right foot was then scrubbed, prepped, and draped in the usual aseptic manner. An Esmarch tourniquet was applied to the patient's right foot. Attention was directed to the distal aspect of the patient's right second digit where a contracted second digit was noted with dry eschar with the open sore probed down to the level of bone. The decision was made to proceed with amputation at the level of the proximal interphalangeal joint. Two 1.5 cm converging semi-elliptical incisions were made at the level of the proximal interphalangeal joint. The distal aspect of the digit was grasped with towel clamp and the digit was disarticulated at the level of the proximal interphalangeal joint and passed off to the back table for gross specimen. The wound was then copiously irrigated with sterile saline. The skin edges then were remodeled for closure by removing all dog-ears and debulking fat. The skin was reapproximated utilizing simple interrupted sutures with 4-0 nylon. The incision site was then dressed with Adaptic, 4x4s, Kerlix, Anthony wrap, and a postop shoe. The patient tolerated the procedure and anesthesia well. The patient was transferred to the postoperative recovery with vital signs stable and vascular status intact. The patient was monitored there for a short period of time before being sent home with the following written and oral instructions: 1. Keep the dressing clean, dry, and intact. 2. The patient is to remain partial heel touch weightbearing to the right foot to avoid excessive ambulation until being seen in the office. 3. The patient was given the office number and instructed to contact us if any problems arise. PRATEEK Rogers/ANANT /[id number]
== END | disposition home or self-care (01) ==
LOC: OR 05:53
PROVIDERS: ATTEND Podiatrist Foot & Ankle Surgery
DX: M86.671 Other chronic osteomyelitis, right ankle and foot (principal); E11.9 Type 2 diabetes mellitus without complications; G62.9 Polyneuropathy, unspecified; J44.9 Chronic obstructive pulmonary disease, unspecified; G47.33 Obstructive sleep apnea (adult) (pediatric); I25.810 Atherosclerosis of coronary artery bypass graft(s) without angina pectoris; E03.9 Hypothyroidism, unspecified; I11.0 Hypertensive heart disease with heart failure; I50.9 Heart failure, unspecified; I44.0 Atrioventricular block, first degree; I45.10 Unspecified right bundle-branch block; M54.9 Dorsalgia, unspecified; F32.9 Major depressive disorder, single episode, unspecified; F41.9 Anxiety disorder, unspecified; Z88.1 Allergy status to other antibiotic agents; Z01.810 Encounter for preprocedural cardiovascular examination; Z01.812 Encounter for preprocedural laboratory examination; Z01.818 Encounter for other preprocedural examination; Z79.02 Long term (current) use of antithrombotics/antiplatelets; Z79.4 Long term (current) use of insulin; Z95.1 Presence of aortocoronary bypass graft; Z87.891 Personal history of nicotine dependence
CPT/HCPCS: 28825; 36415 ×2; 71046; 80048; 82948; 84132; 85025; 88304; 88311; 93005; J0131; J0690; J1100; J1817; J2001; J2405; J2704